=== PATIENT | male | born 1960 | race Caucasian/White ===

== ENCOUNTER → 2016-10-21 | Outpatient (CLI) | payer BC ==
[~2016-10-21] MED LIST: ANSHCS RE; ASPCH81X PO; ASPI81TA28 PO; BACL10TA PO; BUSP-8 PO; CHOL1000 PO; CHOL1CAP26 PO; CIPR-255 PO; COLC0.6T54 PO; CYAN1TAB3 PO; ENOX80IN SQ; ESCI10TA17 PO; GLUC10007 PO; GLUCTAB32 PO; HYDR-4383 PO; HYDR-5688 PO; IBUP-1449 PO; IBUP-1459 PO; LVNIS80 SQ; META1TAB PO; MULT-506 PO; NALT50TA5 PO; NF656 TOP; OXGN; PANT40TA PO; TRAZ50TA35 PO; TYL325X PO; VNTHFA/IN INH; WARF5TAB7 PO; WARF7.5T4 PO; XRL15 PO
== END | disposition home or self-care (01) ==
LOC: C.PATHSPEC 17:42
PROVIDERS: ATTEND Urology
DX: C61 Malignant neoplasm of prostate (principal)

== ENCOUNTER → 2016-12-01 | Outpatient (CLI) | payer BC ==
[~2016-12-01] VITALS: Ht 182.9 cm; Wt 90.3 kg
[~2016-12-01] MED LIST changes: +CEFAZOLIN 2000 MG/60 ML D5W IV SCH; +HEPARIN SOD 5000 UNIT/0.5 ML CARP SQ SCH; +LACTATED RINGER'S 1000ML 1,000 ML IV SCH; +SILD1TAB25 PO
[2016-12-01 08:20] VITALS: Ht 182.9 cm; Wt 90.3 kg
--- NOTE | 2016-12-01 08:59 | PAT Medication Instructions ---
Service Date Dec 01, 2016. Current Home Medication List Aspirin (Aspirin Ec), 81 MG PO QAM Baclofen (Lioresal), 10 MG PO HS PRN for RN Cyanocobalamin (B-12), 500 MCG PO QAM Wrhcmawlhrm-Xshjyirlmuu-Ft Cho (Glucosamine Chondroitin &), 1 TAB PO QAM Hydrocortisone Acetate (Anucort-Hc), 1 DOSE RE BID PRN for RN Lidocaine (Lidoderm Patch 5%), 1 DOSE TOP PRN Metaxalone (Metaxalone), 800 MG PO Q8H PRN for Pain Multivitamin (Multivitamin), 1 TAB PO QAM Oxygen (Oxygen), 2 LITERS NA HS Medication Instructions For Your Scheduled Surgery - Hold the following medications as of 12/02/16: Hxuhepnqndk-Gviyzoseuej-Jw Cho (Glucosamine Chondroitin &), 1 TAB PO QAM - Hold the following medications the morning of surgery: Cyanocobalamin (B-12), 500 MCG PO QAM Multivitamin (Multivitamin), 1 TAB PO QAM Lidocaine (Lidoderm Patch 5%), 1 DOSE TOP PRN Metaxalone (Metaxalone), 800 MG PO Q8H PRN for Pain Hydrocortisone Acetate (Anucort-Hc), 1 DOSE RE BID PRN - Take the following medications the morning of surgery with a sip of water OTHERWISE NOTHING TO EAT OR DRINK AFTER MIDNIGHT: Aspirin (Aspirin Ec), 81 MG PO QAM - Take the following medications as scheduled the night before surgery: Baclofen (Lioresal), 10 MG PO HS PRN Metaxalone (Metaxalone), 800 MG PO Q8H PRN for Pain Hydrocortisone Acetate (Anucort-Hc), 1 DOSE RE BID PRN If you have any questions please call us at [phone] or [phone] or [phone]
[2016-12-01 09:14] LABS: URINE APPEARANCE CLEAR (CLEAR); URINE BILIRUBIN NEG (NEG); URINE COLOR YELLOW; URINE EPITHELIAL CELL AUTO 0-5 /lpf (0-5); URINE NITRITE NEG (NEG); URINE PH 6.5 (4.5-7.5); URINE SPECIFIC GRAVITY 1.006 (1.000-1.030); UROBILINOGEN NEG (NEG)
[2016-12-01 09:15] LABS: MANUAL MICROSCOPIC REQUIRED? NO; REVIEW REQ? NO
[2016-12-01 09:26] LABS: BASO % 0.4 %; BASO ABS # 0.03 K/uL (0-0.2); COMPLETE YES; EOS % 4.3 %; HEMATOCRIT 41.4 % (42-52); IG% 0.3 %; LYMPH % 26.4 %; LYMPH ABS # 1.85 K/uL (1.2-3.4); MEAN CELL VOLUME 95.4 fL (80-100); MEAN CORPUSCULAR HEMOGLOBIN 32.7 pg (25-34); MEAN CORPUSCULAR HGB CONC 34.3 g/dl (32-36); MEAN PLATELET VOLUME 10.2 fL (7.4-10.4); MONO % 9.3 %; NEUT % 59.3 %; PLATELET COUNT 158 K/uL (130-400); RED BLOOD COUNT 4.34 M/uL (4.7-6.1); WHITE BLOOD COUNT 7.02 K/uL (4.8-10.8)
[2016-12-01 09:37] LABS: BUN/CREATININE RATIO 12.3 (10-20); CALCIUM 8.9 mg/dl (8.5-10.1); CREATININE 1.1 mg/dl (0.60-1.40); POTASSIUM 4.6 mmol/L (3.5-5.1)
== END | disposition home or self-care (01) ==
LOC: C.LAB 08:00 → EDSTATUS 12-14 09:00
PROVIDERS: ATTEND Urology
DX: Z01.810 Encounter for preprocedural cardiovascular examination (principal); Z01.812 Encounter for preprocedural laboratory examination

== ENCOUNTER → 2016-12-08 | Outpatient (CLI) | payer BC ==
[~2016-12-08] MED LIST changes: -ASPCH81X PO; -CEFAZOLIN 2000 MG/60 ML D5W IV SCH; -GLUC10007 PO; -HEPARIN SOD 5000 UNIT/0.5 ML CARP SQ SCH; -LACTATED RINGER'S 1000ML 1,000 ML IV SCH; -SILD1TAB25 PO
--- NOTE | 2016-12-08 08:25 | DIAGNOSTIC IMAGING REPORT ---
BILATERAL LOWER EXTREMITY VENOUS DOPPLER CLINICAL HISTORY: Acute left leg pain. COMPARISON STUDY: Bilateral lower extremity venous Doppler September 16, 2016. TECHNIQUE: Sonography of the deep venous system of the bilateral lower extremities was performed. Compression and augmentation were evaluated. FINDINGS: The right common femoral, superficial femoral and popliteal veins were compressible. Augmentation was normal. Flow was shown within the deep calf vessels of the right lower extremity. There was occlusive deep venous thrombus within the left popliteal, posterior tibial and peroneal veins. Vessels were expanded. This is new since exam of September 16, 2016. IMPRESSION: Interval development of occlusive deep venous thrombus within the left popliteal, posterior tibial and peroneal veins since exam of September 16, 2016. Electronically signed by: Jaguar Mckeon M.D. 12/08/2016 8:24 AM Dictated Date/Time: 12/08/2016 8:23 AM
== END | disposition home or self-care (01) ==
PROVIDERS: ATTEND Internal Medicine
DX: I82.432 Acute embolism and thrombosis of left popliteal vein (principal); I82.442 Acute embolism and thrombosis of left tibial vein

== ENCOUNTER 2016-12-25 13:24 | Inpatient (IN) | payer BC ==
[~2016-12-25] VITALS: Ht 182.9 cm; Wt 83.5 kg
[~2016-12-25 13:24] MED LIST changes: -BUSP-8 PO; -CHOL1000 PO; -CHOL1CAP26 PO; -CIPR-255 PO; -COLC0.6T54 PO; -ENOX80IN SQ; -ESCI10TA17 PO; -HYDR-4383 PO; -HYDR-5688 PO; -IBUP-1449 PO; -IBUP-1459 PO; -LVNIS80 SQ; -NALT50TA5 PO; -PANT40TA PO; -TRAZ50TA35 PO; -TYL325X PO; -VNTHFA/IN INH; -WARF5TAB7 PO; -WARF7.5T4 PO; -XRL15 PO
[2016-12-25] MEDS ORDERED: SODIUM CHLORIDE 0.9% 1000ML 250 ML IV STA (13:40)
[2016-12-25] MEDS ORDERED: SODIUM CHLORIDE 0.9% 1000ML 1,000 ML IV STA (13:40)
--- NOTE | 2016-12-25 13:42 | EMERGENCY ROOM VISIT NOTE ---
History Report prepared by Gurdeepibpetrona: Joanne Geronimo Under the Supervision of: Dr. Eran Thakkar M.D. First contact with patient: 13:32 Chief Complaint: CARDIAC ASSESSMENT Stated Complaint: CHEST PAIN,SOB History of Present Illness The patient is a 56 year old male who presents to the Emergency Room with complaints of persistent shortness of breath throughout the day today. He also complains of some left sided rib pain and a cough. Currently, he does not have chest pain with a deep breath but he did have some pain with breathing earlier today. His notes that the color in his face has been intermittently pale. He has been drinking plenty of fluids. The patient was diagnosed with a left leg DVT 2 weeks ago and has been on outpatient Xarelto for 2 weeks. He states that he was recently diagnosed with prostate cancer and is scheduled for removal of his prostate later this month. He is not on chemotherapy or radiation. The patient has a history of a right leg DVT and PE 2 years ago. The cause of the blood clots is unknown. There is no family history of blood clots and the patient does not have a known clotting disorder. Per patient's , the patient was in the service and has a previous right leg injury and they are unsure if his previous blood clots were related. Denies recent injuries or falls, fevers, abdominal pain, nausea, vomiting, diarrhea, or other complaints. He does not have a cardiac history. Source of History: patient, spouse/significant other Onset: today Position: other (global) Quality: other (shortness of breath) Timing: other (persistent) Associated Symptoms: + chest pain (left ribs), + cough, No abdominal pain, No diarrhea, No fevers, No nausea, No vomiting Review of Systems See HPI for pertinent positives & negatives. A total of 10 systems reviewed and were otherwise negative. Past Medical & Surgical Medical Problems: (1) Acute Venous Embolism & Thrombosis Deep Vessels Proximal Le (2) Idiopath Sleep Related Non-Obstruc Alveolar Hypoventilation (3) Pain In Limb (4) Prostate cancer Old medical records were reviewed. Nurse's notes were reviewed and I agree with. Family History Cancer BROTHER, Onset:50's - 60 (bladder cancer) MOTHER, Onset:60 years & older (uterine and stomach cancer) Diabetes mellitus SON (Type 1 DM) Social History Smoking Status: Never Smoker Alcohol Use: occasionally Drug Use: none Marital Status: Housing Status: lives with family Occupation Status: employed Current/Historical Medications Scheduled Cyanocobalamin (B-12), 500 MCG PO QAM Icrtlyhbhqq-Wssvhhnfxua-Et Cho (Glucosamine Chondroitin &), 1 TAB PO QAM Lidocaine (Lidoderm Patch 5%), 1 DOSE TOP PRN Multivitamin (Multivitamin), 1 TAB PO QAM Oxygen (Oxygen), 2 LITERS NA HS Rivaroxaban (Xarelto), 15 MG PO BID Scheduled PRN Baclofen (Lioresal), 10 MG PO HS PRN for RN Hydrocortisone Acetate (Anucort-Hc), 1 DOSE RE BID PRN for RN Metaxalone (Metaxalone), 800 MG PO Q8H PRN for Pain Allergies Coded Allergies: No Known Allergies (Unverified , 12/25/16) Physical Exam Vital Signs Date Time Temp Pulse Resp B/P Pulse Ox O2 Delivery O2 Flow Rate FiO2 12/25/16 15:18 78 16 134/83 95 Room Air 12/25/16 14:16 86 17 133/86 93 Room Air 12/25/16 13:47 77 12/25/16 13:47 97 Room Air 12/25/16 13:27 36.6 83 18 144/98 97 Room Air Physical Exam General: Non-ill appearing middle aged male. Well developed well nourished in no acute distress, breathing comfortably on room air. Normal speech HEENT: Normal cephalic atraumatic. Pupils are equal round and reactive to light. Extraocular movements are intact. Oropharynx is pink with moist mucous membranes. No swelling of the mouth lips or tongue. Neck: Supple with a midline trachea. No meningeal signs or stiffness, no JVD or bruits. No Stridor. Chest: Clear to auscultation bilaterally. No wheezes or rhonchi. No increased work of breathing. Heart: regular rate and rhythm. Abdomen: Soft nontender, nondistended without rebound guarding or rigidity. Extremities: No cyanosis clubbing or edema. No calf tenderness or assymetry Spine/Back. Non tender to palpation. No CVA tenderness Skin: Good turgor without rashes. Neurologic exam: Cranial nerves two through 12 are intact. Motor and sensation are intact and symmetrical throughout. Medical Decision & Procedures ER Provider Diagnostic Interpretation: Radiology results as stated below per my review and radiologist interpretation: CT ANGIOGRAM OF THE CHEST CLINICAL HISTORY: Atypical chest pain COMPARISON STUDY: 05/03/2016 TECHNIQUE: Following the IV administration of 99 mL of Optiray-320, CT angiogram of the thorax was performed from the thoracic inlet to the lung bases utilizing the pulmonary embolus protocol. Images are reviewed in the axial, sagittal, and coronal planes. IV contrast was administered without complication. MIP imaging was performed. CT DOSE: 394.09 mGy.cm FINDINGS: No pathologically enlarged axillary mediastinal or hilar lymph nodes were visualized. There was no evidence of thoracic aortic dilatation. There is a small linear filling defect within the origin of the right upper lobe pulmonary artery. The findings are consistent with a small pulmonary embolism. No pleural effusions are visualized. There is no focal pulmonary consolidation. There is mild bibasilar atelectasis. IMPRESSION: 1. Small filling defect within the origin of the right upper lobe pulmonary artery, consistent with a small pulmonary embolus 2. No evidence of focal pulmonary consolidation 3. No evidence of pathologic adenopathy Electronically signed by: Chase Soliman M.D. 12/25/2016 2:15 PM Dictated Date/Time: 12/25/2016 2:[address] ANGIOGRAM OF THE CHEST CLINICAL HISTORY: Atypical chest pain COMPARISON STUDY: 05/03/2016 TECHNIQUE: Following the IV administration of 99 mL of Optiray-320, CT angiogram of the thorax was performed from the thoracic inlet to the lung bases utilizing the pulmonary embolus protocol. Images are reviewed in the axial, sagittal, and coronal planes. IV contrast was administered without complication. MIP imaging was performed. CT DOSE: 394.09 mGy.cm FINDINGS: No pathologically enlarged axillary mediastinal or hilar lymph nodes were visualized. There was no evidence of thoracic aortic dilatation. There is a small linear filling defect within the origin of the right upper lobe pulmonary artery. The findings are consistent with a small pulmonary embolism. No pleural effusions are visualized. There is no focal pulmonary consolidation. There is mild bibasilar atelectasis. IMPRESSION: 1. Small filling defect within the origin of the right upper lobe pulmonary artery, consistent with a small pulmonary embolus 2. No evidence of focal pulmonary consolidation 3. No evidence of pathologic adenopathy Electronically signed by: Chase Soliman M.D. 12/25/2016 2:15 PM Dictated Date/Time: 12/25/2016 2:07 PM ULTRASOUND VENOUS DOPPLER LWR EXT BILA CLINICAL HISTORY: Leg pain HISTORY OF DVT COMPARISON STUDY: December 08, 2016 FINDINGS: On the right, no DVT was identified. The common femoral superficial femoral and popliteal veins were patent. The proximal trifurcation veins are patent. On the left, thrombus is again identified within the left popliteal vein as well within one peroneal vein, and one posterior tibial vein. The left popliteal thrombus appears slightly improved when compared the prior study. IMPRESSION: 1. No evidence of right lower extremity DVT 2. Persistent thrombus within the left popliteal vein, posterior tibial vein, and peroneal vein. There has been minor improvement when compared the prior study. Electronically signed by: Chase Soliman M.D. 12/25/2016 5:25 PM Dictated Date/Time: 12/25/2016 5:23 PM Laboratory Results 12/25/16 13:40 Red Blood Count 4.49, Mean Corpuscular Volume 96.7, Mean Corpuscular Hemoglobin 33.2, Mean Corpuscular Hemoglobin Concent 34.3, Mean Platelet Volume 10.8, Neutrophils (%) (Auto) 63.1, Lymphocytes (%) (Auto) 23.0, Monocytes (%) (Auto) 12.0, Eosinophils (%) (Auto) 1.3, Basophils (%) (Auto) 0.4, Neutrophils # (Auto ) 6.44, Lymphocytes # (Auto) 2.35, Monocytes # (Auto) 1.22, Eosinophils # (Auto ) 0.13, Basophils # (Auto) 0.04 12/25/16 13:40 Test 12/25/16 13:40 12/25/16 13:52 White Blood Count 10.20 K/uL (4.8-10.8) Red Blood Count 4.49 M/uL (4.7-6.1) Hemoglobin 14.9 g/dL (14.0-18.0) Hematocrit 43.4 % (42-52) Mean Corpuscular Volume 96.7 fL (80-100) Mean Corpuscular Hemoglobin 33.2 pg (25-34) Mean Corpuscular Hemoglobin Concent 34.3 g/dl (32-36) Platelet Count 192 K/uL (130-400) Mean Platelet Volume 10.8 fL (7.4-10.4) Neutrophils (%) (Auto) 63.1 % Lymphocytes (%) (Auto) 23.0 % Monocytes (%) (Auto) 12.0 % Eosinophils (%) (Auto) 1.3 % Basophils (%) (Auto) 0.4 % Neutrophils # (Auto) 6.44 K/uL (1.4-6.5) Lymphocytes # (Auto) 2.35 K/uL (1.2-3.4) Monocytes # (Auto) 1.22 K/uL (0.11-0.59) Eosinophils # (Auto) 0.13 K/uL (0-0.5) Basophils # (Auto) 0.04 K/uL (0-0.2) RDW Standard Deviation 45.3 fL (36.4-46.3) RDW Coefficient of Variation 12.8 % (11.5-14.5) Immature Granulocyte % (Auto) 0.2 % Immature Granulocyte # (Auto) 0.02 K/uL (0.00-0.02) Prothrombin Time 12.0 SECONDS (9.0-12.0) Prothromb Time International Ratio 1.1 (0.9-1.1) Activated Partial Thromboplast Time 27.8 SECONDS (21.0-31.0) Partial Thromboplastin Ratio 1.1 Anion Gap 9.0 mmol/L (3-11) Est Creatinine Clear Calc Drug Dose 70.5 ml/min Estimated GFR () 71.2 Estimated GFR (Non- 61.4 BUN/Creatinine Ratio 17.9 (10-20) Calcium Level 8.7 mg/dl (8.5-10.1) Total Bilirubin 0.4 mg/dl (0.2-1) Direct Bilirubin < 0.1 mg/dl (0-0.2) Aspartate Amino Transf (AST/SGOT) 19 U/L (15-37) Alanine Aminotransferase (ALT/SGPT) 37 U/L (12-78) Alkaline Phosphatase 61 U/L (45-117) Total Creatine Kinase 94 U/L (39-308) Creatine Kinase MB < 0.5 ng/ml (0.5-3.6) Creatine Kinase MB Ratio (0-3.0) Total Protein 7.5 gm/dl (6.4-8.2) Albumin 3.9 gm/dl (3.4-5.0) Lipase 240 U/L (73-393) Bedside Troponin I 0.000 ng/ml (0-0.045) Laboratory studies as stated above per my review. Medications Administered Medications (Trade) Dose Ordered Sig/Eloy Route Start Time Stop Time Status Last Admin Dose Admin Sodium Chloride 250 ml @ 999 mls/hr Q16M STAT IV 12/25/16 13:40 12/25/16 13:55 DC 12/25/16 14:20 999 MLS/HR Sodium Chloride (Nss 1000ml) 1,000 ml @ 100 mls/hr Q10H STAT IV 12/25/16 13:40 12/25/16 17:42 DC 12/25/16 14:23 100 MLS/HR Heparin Sodium/ Dextrose (Heparin 25,000 Unit/500ml D5W) 25,000 unit STK-MED ONCE .ROUTE 12/25/16 15:10 12/25/16 15:13 DC 12/25/16 15:16 25,000 UNIT ECG Indication: SOB/dyspnea Rate (beats per minute): 76 Rhythm: normal sinus Findings: Q waves (anterior and lateral), other (no acute ST abnormality) Comparison ECG Date: 12/01/16 Change: no significant change ED Course 1333: Past medical records reviewed. The patient was evaluated in room C3, and a complete history and physical examination were performed. 1340: Ordered NSS 1000 ml @ 100 mls/hr IV NSS 250 ml @ 999 mls/hr IV. 1408: The patient was in CT scan. I spoke with his . 1445: I spoke with the pharmacist who recommended that I speak with a shotblast equipment operator but felt that the patient would need Heparin. 1446: I discussed the case with Dr. Bustillos - [facility] [place] Hospitalist. He recommended that I speak with a shotblast equipment operator and order ultrasounds. 1448: I discussed the case with Dr. Martínez - Hematology. He said to put the patient on heparin without a bolus. 1450: Ordered Heparin Sodium/Dextrose 1 ea. 1457: I spoke with Dr. Bustillos. The patient will be evaluated for further management. Medical Decision Differential diagnosis includes PE, pneumonia, CHF, anxiety, arrhythmia, acute coronary syndrome, electrolyte or metabolic abnormality. This patient comes in as described above. He was placed in room C3. He is here for treatment and evaluation of shortness of breath and some mild chest pain on his left side. He feels better now appears concern because he is being treated with Xarelto for the last 2 weeks for DVT his left lower extremity. He' s had no syncope or palpitations. IV access established, EKG was obtained as well as multiple blood testing. a chest CT does show a small PE in the right upper lobe. He has nothing to suggest acute coronary syndrome or arrhythmia. EKG does not appear to be ischemic I did get a second EKG after had a brief episode of chest pain here and has no change compared to the first. she had been given morphine as well. I did discuss this with the hospitalist. They're going to admit him. I did discuss this with Dr. Martino, the shotblast equipment operator oncologist, and he did recommend putting him on IV heparin without a bolus, he was given this in the ER. We also repeated ultrasounds of his legs to see if he is any progression of his clot. The patient will be admitted for IV heparin and further treatment and evaluation. Consults Time Called: 1440 Consulting Physician: Dr. Tressa DELEON Hospitalist Returned Call: 1442 I discussed the case with him. He recommended that I speak with a shotblast equipment operator and order ultrasounds. Additional Consults: Time Called: 1446 Consulted Physician: Dr. Martínez - Hematology Returned Call: 1447 Additional Comments: I discussed the case with him. He said to put the patient on heparin without a bolus. Time Called: 1458 Consulted Physician: Dr. Tressa DELEON Hospitalist Returned Call: 1452 Additional Comments: The patient will be evaluated for further management. Impression Primary Impression: PE (pulmonary embolism) Additional Impression: Deep vein thrombosis Scribe Attestation The scribe's documentation has been prepared under my direction and personally reviewed by me in its entirety. I confirm that the note above accurately reflects all work, treatment, procedures, and medical decision making performed by me. Departure Information Dispostion Being Evaluated By Hospitalist Referrals Tripp Carey M.D. (PCP) Patient Instructions My [facility] Health Problem Qualifiers
[2016-12-25] MEDS ORDERED: OPTIRAY 320 IV PRN (13:45)
[2016-12-25 13:52] LABS: BASO % 0.4 %; BASO ABS # 0.04 K/uL (0-0.2); COMPLETE YES; EOS % 1.3 %; HEMATOCRIT 43.4 % (42-52); IG% 0.2 %; LYMPH ABS # 2.35 K/uL (1.2-3.4); MEAN CELL VOLUME 96.7 fL (80-100); MEAN CORPUSCULAR HEMOGLOBIN 33.2 pg (25-34); MEAN CORPUSCULAR HGB CONC 34.3 g/dl (32-36); MEAN PLATELET VOLUME 10.8 fL (7.4-10.4); NEUT % 63.1 %; PLATELET COUNT 192 K/uL (130-400); RED BLOOD COUNT 4.49 M/uL (4.7-6.1)
[2016-12-25 14:04] LABS: INR 1.1 (0.9-1.1); PARTIAL THROMBOPLASTIN RATIO 1.1
[2016-12-25] MEDS ORDERED: XRL15 PO (14:12)
--- NOTE | 2016-12-25 14:16 | DIAGNOSTIC IMAGING REPORT ---
CT ANGIOGRAM OF THE CHEST CLINICAL HISTORY: Atypical chest pain COMPARISON STUDY: 05/03/2016 TECHNIQUE: Following the IV administration of 99 mL of Optiray-320, CT angiogram of the thorax was performed from the thoracic inlet to the lung bases utilizing the pulmonary embolus protocol. Images are reviewed in the axial, sagittal, and coronal planes. IV contrast was administered without complication. MIP imaging was performed. CT DOSE: 394.09 mGy.cm FINDINGS: No pathologically enlarged axillary mediastinal or hilar lymph nodes were visualized. There was no evidence of thoracic aortic dilatation. There is a small linear filling defect within the origin of the right upper lobe pulmonary artery. The findings are consistent with a small pulmonary embolism. No pleural effusions are visualized. There is no focal pulmonary consolidation. There is mild bibasilar atelectasis. IMPRESSION: 1. Small filling defect within the origin of the right upper lobe pulmonary artery, consistent with a small pulmonary embolus 2. No evidence of focal pulmonary consolidation 3. No evidence of pathologic adenopathy Electronically signed by: Chase Soliman M.D. 12/25/2016 2:15 PM Dictated Date/Time: 12/25/2016 2:07 PM
[2016-12-25 14:18] LABS: ALT/SGPT 37 U/L (12-78); AST/SGOT 19 U/L (15-37); BLOOD UREA NITROGEN 23 mg/dl (7-18); BUN/CREATININE RATIO 17.9 (10-20); CALCIUM 8.7 mg/dl (8.5-10.1); CARBON DIOXIDE 27 mmol/L (21-32); CHLORIDE 105 mmol/L (98-107); GLUCOSE 84 mg/dl (70-99); POTASSIUM 3.9 mmol/L (3.5-5.1); SODIUM 141 mmol/L (136-145)
[2016-12-25 14:23] LABS: ALKALINE PHOSPHATASE 61 U/L (45-117)
[2016-12-25] MEDS ORDERED: HEPARIN 25000 UNIT/500 ML D5W ONE (15:10)
[2016-12-25] MEDS ORDERED: ALUMINUM/MAGNESIUM/SIMETH (MAALOX MAX) 30 ML UDC PO PRN (15:30)
[2016-12-25] MEDS ORDERED: ONDANSETRON INJ 2 MG/ML 2 ML VIAL IV PRN (15:30)
[2016-12-25] MEDS ORDERED: MAGNESIUM HYDROXIDE SUSP 30 ML UDC PO PRN (15:30)
[2016-12-25] MEDS ORDERED: ACETAMINOPHEN 325 MG TAB PO PRN (15:30)
[2016-12-25] MEDS ORDERED: POLYETHYLENE (MIRALAX) 17 GM PACK PO PRN (15:30)
[2016-12-25] MEDS ORDERED: BACLOFEN 10 MG TAB PO PRN (15:30)
--- NOTE | 2016-12-25 15:37 | History and Physical ---
History & Physical Date & Time of Service: Dec 25, 2016 at 15:24 Chief Complaint: Chest Pain,Sob Primary Care Physician: Tripp Carey M.D. History of Present Illness Source: patient 56 y/o M w/Hx prostata CA, recent LLE DVT currently on Xarelto. Pt developed acute pleuritic CP and SOB and presented to the ER. A CTA revealed a small upper lobe PE. The ER attending had discussed this with hematology who have instructed to place the pt on a heparin infusion due to possible Apixaban failure. The pt had a DVT and PE 2 years prior and was on Coumadin until . He presented to the ER with hematuria and BRBPR 07/02 and was diagnosed with hemorrhoids and eventually with Prostate CA. The disease is in situ and he is due for a prostatectomy which was held up by a DVT diagnosis 2 weeks prior. Past Medical/Surgical History Medical Problems: (1) Acute Venous Embolism & Thrombosis Deep Vessels Proximal Le Status: Resolved (2) Idiopath Sleep Related Non-Obstruc Alveolar Hypoventilation Status: Chronic (3) Pain In Limb Status: Resolved (4) Prostate cancer Status: Chronic Family History Cancer BROTHER, Onset:50's - 60 (bladder cancer) MOTHER, Onset:60 years & older (uterine and stomach cancer) Diabetes mellitus SON (Type 1 DM) Social History Smoking Status: Never Smoker Drug Use: none Marital Status: Housing status: lives with family Occupational Status: employed Multi-Drug Resistant Organisms History of MDRO: No Allergies Coded Allergies: No Known Allergies (Unverified , 12/25/16) Home Medications Scheduled Cyanocobalamin (B-12), 500 MCG PO QAM Hfctluteged-Tukeiboiyeh-Rh Cho (Glucosamine Chondroitin &), 1 TAB PO QAM Lidocaine (Lidoderm Patch 5%), 1 DOSE TOP PRN Multivitamin (Multivitamin), 1 TAB PO QAM Oxygen (Oxygen), 2 LITERS NA HS Rivaroxaban (Xarelto), 15 MG PO BID Scheduled PRN Baclofen (Lioresal), 10 MG PO HS PRN for RN Hydrocortisone Acetate (Anucort-Hc), 1 DOSE RE BID PRN for RN Metaxalone (Metaxalone), 800 MG PO Q8H PRN for Pain Review of Systems Constitutional: No chills, No fever, No sweats Eyes: No eye pain, No worsening of vision ENT: No hearing loss, No nasal symptoms, No unusual epistaxis Respiratory: + shortness of breath, No cough, No sputum, No wheezing Cardiovascular: + chest pain (PLeuritic), No PND, No orthopnea Abdomen: No nausea, No pain, No vomiting Musculoskeletal: + muscle pain (Chronic LBP), No joint pain Genitourinary - Male: No dysuria, No hematuria, No urinary frequency, No urinary urgency Neurologic: No memory loss, No paralysis, No weakness Psychiatric: No depression symptoms Endocrine: No fatigue Integumentary: No rash Allergic / Immunologic: No environmental allergies Physical Exam Vital Signs Date Time Temp Pulse Resp B/P Pulse Ox O2 Delivery O2 Flow Rate FiO2 12/25/16 15:18 78 16 134/83 95 Room Air 12/25/16 14:16 86 17 133/86 93 Room Air 12/25/16 13:47 77 12/25/16 13:47 97 Room Air 12/25/16 13:27 36.6 83 18 144/98 97 Room Air General Appearance: WD/WN, no apparent distress Head: normocephalic, atraumatic Eyes: normal inspection, PERRL, EOMI ENT: normal ENT inspection, hearing grossly normal, TMs normal, pharynx normal Neck: supple, no JVD Respiratory/Chest: chest non-tender, lungs clear, normal breath sounds, no respiratory distress, no accessory muscle use Cardiovascular: regular rate, rhythm, no edema, no gallop Abdomen/GI: normal bowel sounds, non tender, soft, no organomegaly, no pulsatile mass, normal rectal exam, occult blood negative Back: normal inspection, no CVA tenderness Extremities/Musculoskelatal: normal inspection, no calf tenderness 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, no motor/sensory deficits, alert, normal mood/affect, normal reflexes, oriented x 3 Skin: normal color, warm/dry, no rash Diagnostics Laboratory Results Results Past 24 Hours Test 12/25/16 13:40 12/25/16 13:52 Range/Units White Blood Count 10.20 4.8-10.8 K/uL Red Blood Count 4.49 4.7-6.1 M/uL Hemoglobin 14.9 14.0-18.0 g/dL Hematocrit 43.4 42-52 % Mean Corpuscular Volume 96.7 80-100 fL Mean Corpuscular Hemoglobin 33.2 25-34 pg Mean Corpuscular Hemoglobin Concent 34.3 32-36 g/dl Platelet Count 192 130-400 K/uL Mean Platelet Volume 10.8 7.4-10.4 fL Neutrophils (%) (Auto) 63.1 % Lymphocytes (%) (Auto) 23.0 % Monocytes (%) (Auto) 12.0 % Eosinophils (%) (Auto) 1.3 % Basophils (%) (Auto) 0.4 % Neutrophils # (Auto) 6.44 1.4-6.5 K/uL Lymphocytes # (Auto) 2.35 1.2-3.4 K/uL Monocytes # (Auto) 1.22 0.11-0.59 K/uL Eosinophils # (Auto) 0.13 0-0.5 K/uL Basophils # (Auto) 0.04 0-0.2 K/uL RDW Standard Deviation 45.3 36.4-46.3 fL RDW Coefficient of Variation 12.8 11.5-14.5 % Immature Granulocyte % (Auto) 0.2 % Immature Granulocyte # (Auto) 0.02 0.00-0.02 K/uL Prothrombin Time 12.0 9.0-12.0 SECONDS Prothromb Time International Ratio 1.1 0.9-1.1 Activated Partial Thromboplast Time 27.8 21.0-31.0 SECONDS Partial Thromboplastin Ratio 1.1 Sodium Level 141 136-145 mmol/L Potassium Level 3.9 3.5-5.1 mmol/L Chloride Level 105 98-107 mmol/L Carbon Dioxide Level 27 21-32 mmol/L Anion Gap 9.0 3-11 mmol/L Blood Urea Nitrogen 23 7-18 mg/dl Creatinine 1.30 0.60-1.40 mg/dl Est Creatinine Clear Calc Drug Dose 70.5 ml/min Estimated GFR () 71.2 Estimated GFR (Non- 61.4 BUN/Creatinine Ratio 17.9 10-20 Random Glucose 84 70-99 mg/dl Calcium Level 8.7 8.5-10.1 mg/dl Total Bilirubin 0.4 0.2-1 mg/dl Direct Bilirubin < 0.1 0-0.2 mg/dl Aspartate Amino Transf (AST/SGOT) 19 15-37 U/L Alanine Aminotransferase (ALT/SGPT) 37 12-78 U/L Alkaline Phosphatase 61 45-117 U/L Total Creatine Kinase 94 39-308 U/L Creatine Kinase MB < 0.5 0.5-3.6 ng/ml Creatine Kinase MB Ratio 0-3.0 Total Protein 7.5 6.4-8.2 gm/dl Albumin 3.9 3.4-5.0 gm/dl Lipase 240 73-393 U/L Bedside Troponin I 0.000 0-0.045 ng/ml Diagnostic Radiology CTA 1. Small filling defect within the origin of the right upper lobe pulmonary artery, consistent with a small pulmonary embolus 2. No evidence of focal pulmonary consolidation 3. No evidence of pathologic adenopathy Impression Assessment and Plan 56 y/o M w/Hx recent DVT currently on Xarelto. Pt developed acute pleuritic CP and SOB and presented to the ER. A CTA revealed a small upper lobe PE. The ER attending had discussed this with hematology who have instructed to place the pt on a heparin infusion due to possible Xarelto failure. 1) PE - known DVT 2 weeks prior - this may constitute Xarelto failure however we will obtain a LE US to determine if DVT is resolving as the PE is small and may be residual. 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 O2 protocol - analgesia provided. Instructed on Heparin infusion pending consultation. 2) Prostate CA - Follows with Dr. Martínez and Dr. Leonard Full code - full dose Heparin Total time for this admit including review of labs, meds, imaging - discussion with pt and ER attending 32 min Level of Care Telemetry Resuscitation Status FULL RESUSCITATION VTE Prophylaxis VTE Risk Assessment Done? Y/N: Yes Risk Level: High Given or contraindicated: Other Anticoagulation
--- NOTE | 2016-12-25 17:27 | DIAGNOSTIC IMAGING REPORT ---
ULTRASOUND VENOUS DOPPLER LWR EXT BILA CLINICAL HISTORY: Leg pain HISTORY OF DVT COMPARISON STUDY: December 08, 2016 FINDINGS: On the right, no DVT was identified. The common femoral superficial femoral and popliteal veins were patent. The proximal trifurcation veins are patent. On the left, thrombus is again identified within the left popliteal vein as well within one peroneal vein, and one posterior tibial vein. The left popliteal thrombus appears slightly improved when compared the prior study. IMPRESSION: 1. No evidence of right lower extremity DVT 2. Persistent thrombus within the left popliteal vein, posterior tibial vein, and peroneal vein. There has been minor improvement when compared the prior study. Electronically signed by: Chase Soliman M.D. 12/25/2016 5:25 PM Dictated Date/Time: 12/25/2016 5:23 PM
[2016-12-25] MEDS ORDERED: D5NSS + 20MEQ KCL 1,000 ML IV SCH (17:42)
[2016-12-25] MEDS ORDERED: HEPARIN 25,000 UNIT/500ML D5W 500 ML IV PRN (18:00)
[2016-12-25] MEDS: MoRPHine SULFATE 2 MG/ML CARP IV PRN (19:24)
[2016-12-25 20:01] VITALS: BP 141/92; PULSE 73; TEMP 36.8; O2SAT 94
[2016-12-25 20:44] VITALS: O2SAT 94; Ht 182.9 cm; Wt 83.5 kg
[2016-12-25 21:57] LABS: PARTIAL THROMBOPLASTIN RATIO 1.7
[2016-12-25] MEDS ORDERED: HEPARIN SOD 5000 UNIT/0.5 ML CARP SQ SCH (22:00)
[2016-12-25] MEDS ORDERED: HEPARIN IV BOLUS 3,000 UNIT in SYRINGE 0 ML IV ONE (22:30)
[2016-12-25 23:20] VITALS: BP 120/82; PULSE 61; TEMP 36.8; O2SAT 96
[2016-12-26] VITALS (8 sets, daily range): BP systolic 117–128; BP diastolic 73–88; PULSE 64–71; TEMP 36.5–37; O2SAT 95–98
[2016-12-26] MEDS: MoRPHine SULFATE 2 MG/ML CARP IV PRN ×4 (03:52→20:48)
[2016-12-26 05:56] LABS: HEMATOCRIT 40.3 % (42-52); MEAN CELL VOLUME 95.7 fL (80-100); MEAN CORPUSCULAR HGB CONC 34.5 g/dl (32-36); MEAN PLATELET VOLUME 10.7 fL (7.4-10.4); PLATELET COUNT 158 K/uL (130-400); RED BLOOD COUNT 4.21 M/uL (4.7-6.1); WHITE BLOOD COUNT 9.68 K/uL (4.8-10.8)
[2016-12-26 06:56] LABS: PARTIAL THROMBOPLASTIN RATIO 2.8
[2016-12-26] MEDS: CYANOCOBALAMIN 500 MCG TAB (VIT B-12) PO SCH (08:33)
[2016-12-26 13:21] LABS: PARTIAL THROMBOPLASTIN RATIO 2.1
--- NOTE | 2016-12-26 14:37 | Progress Note ---
Subjective Date of Service: Dec 26, 2016. Subjective Pt evaluation today including: conversation w/ patient, physical exam, chart review, lab review, review of studies, review of inpatient medication list Resting comfortably in bed No shortness of breath or chest pain No fever, or chills No further concerns Problem List Medical Problems: (1) Anemia Status: Acute (2) Anticoagulated on Coumadin Status: Acute (3) Blood per rectum Status: Acute (4) Chest wall pain Status: Acute (5) Deep vein thrombosis Status: Acute (6) Hematuria Status: Acute (7) Hematuria Status: Acute (8) Intractable back pain Status: Acute (9) Low back pain Status: Acute (10) Lower back pain Status: Acute (11) PE (pulmonary embolism) Status: Acute (12) Pleuritic chest pain Status: Acute (13) Rectal bleeding Status: Acute (14) Shortness of breath Status: Acute Review of Systems Constitutional: No chills, No fever Respiratory: No cough, No dyspnea on exertion, No shortness of breath, No sputum, No wheezing Cardiac: No chest pain, No orthopnea Abdomen: No constipation, No diarrhea, No nausea, No pain, No vomiting Musculoskeletal: No joint pain, No muscle pain Male : No dysuria, No urinary frequency Objective Vital Signs Date Time Temp Pulse Resp B/P Pulse Ox O2 Delivery O2 Flow Rate FiO2 12/26/16 12:00 98 Room Air 12/26/16 11:39 37.0 66 18 126/75 97 Room Air 12/26/16 09:37 Room Air 12/26/16 08:00 96 Room Air 12/26/16 07:47 36.5 69 18 117/73 96 Room Air 12/26/16 04:30 36.9 64 16 126/79 96 Nasal Cannula 1.0 12/26/16 03:39 Nasal Cannula 2.0 12/25/16 23:49 Room Air 12/25/16 23:20 36.8 61 16 120/82 96 Room Air 12/25/16 20:44 94 Room Air 12/25/16 20:01 36.8 73 18 141/92 94 Room Air 12/25/16 16:57 74 20 146/98 95 12/25/16 16:27 74 20 146/98 95 12/25/16 15:18 78 16 134/83 95 Room Air Physical Exam General Appearance: WD/WN, no apparent distress Neck: supple, no adenopathy, thyroid normal Respiratory/Chest: chest non-tender, lungs clear Cardiovascular: no edema, no JVD Abdomen: non tender, soft Neurologic/Psychiatric: alert, oriented x 3 Laboratory Results Last 24 Hours Test 12/25/16 21:41 12/26/16 05:36 12/26/16 13:00 Activated Partial Thromboplast Time 43.4 SECONDS 74.1 SECONDS 53.7 SECONDS Partial Thromboplastin Ratio 1.7 2.8 2.1 White Blood Count 9.68 K/uL Red Blood Count 4.21 M/uL Hemoglobin 13.9 g/dL Hematocrit 40.3 % Mean Corpuscular Volume 95.7 fL Mean Corpuscular Hemoglobin 33.0 pg Mean Corpuscular Hemoglobin Concent 34.5 g/dl RDW Standard Deviation 44.6 fL RDW Coefficient of Variation 12.8 % Platelet Count 158 K/uL Mean Platelet Volume 10.7 fL Assessment and Plan 56 y/o M w/Hx recent DVT currently on Xarelto. Pt developed acute pleuritic CP and SOB and presented to the ER. A CTA revealed a small upper lobe PE. The ER attending had discussed this with hematology who have instructed to place the pt on a heparin infusion due to possible Xarelto failure. 1) PE - known DVT 2 weeks prior - this may constitute Xarelto failure. LE US neg for any DVT. CTA PE is small and may be residual. 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 O2 protocol - analgesia provided. Instructed on Heparin infusion pending consultation. 2) Prostate CA - Follows with Dr. Martínez and Dr. Leonard Full code - full dose Heparin
[2016-12-26] MEDS: ENOXAPARIN 80 MG/0.8 ML SYR SQ SCH (15:15)
--- NOTE | 2016-12-26 18:19 | ONCOLOGY CONSULTATION ---
DATE OF CONSULTATION: 12/26/2016 REASON FOR CONSULTATION: Pulmonary embolism. HISTORY OF PRESENT ILLNESS: Joe is a pleasant 56-year-old gentleman well known to [facility] recently diagnosed at the [facility] with acute onset chest pain and subsequent pulmonary embolism. Joe states that he was in his normal state of reasonably good health when he woke up Tuesday morning and was doing some basic chores around the house when he developed a sharp, stabbing pain in the midsternal region. He sat down and rested briefly. His commented on his pale appearance, but he said he felt okay. Shortly thereafter, the pain returned and he requested his transport him to the Emergency Room. Joe was recently diagnosed with left lower extremity deep vein thrombosis, had been on b.i.d. Xarelto and was approximately 1 week away from converting to a daily dosing. Joe was first introduced to the [facility] at kind of request of his primary care physician to evaluate him for a possible hypercoagulable state. At that time, he imparted history of DVT and pulmonary embolism diagnosed back in 2013. According to Joe, he had not experienced any medical issues or immobility, thus most likely developed a spontaneous thrombotic event. He was anticoagulated for a period of 6 months with Coumadin. Two months post-discontinuance, he developed superficial thrombophlebitis of the right lower extremity. His prior DVT had involved the same extremity. He had continued on Coumadin alternating 5 and 10 mg p.o. every day. He had followed with the anticoagulation clinic at the [facility] and more recently with Dr. Roberts. He had developed genitourinary symptoms, specifically hematuria with right flank pain and underwent extensive workup for renal lithiasis and supposedly all were negative. He was recently diagnosed with prostatitis and is now suspected to suffer from prostate cancer and awaits a formal biopsy. I was contacted by the Emergency Room physician yesterday. I advised admission and incorporation of unfractionated heparin. I am here today to make formal recommendations for long-term anticoagulation. PAST MEDICAL HISTORY: Again, significant for multiple DVT/PE superficial thrombophlebitis, prostatitis versus prostate cancer. PAST SURGICAL HISTORY: None. SOCIAL HISTORY: He is retired , works in the [employer] business. He is a nonsmoker; positive for alcohol, particularly beer. FAMILY HISTORY: Negative for thrombophilia. MEDICATIONS: Xarelto 15 mg p.o. b.i.d., metoprolol XL 800 mg 1 tablet q. 8 hours, glucosamine chondroitin 500/400 mg orally every day, cyanocobalamin oral 500 mcg 1 tablet p.o. every day. ALLERGIES: No known drug allergies. REVIEW OF SYSTEMS: As per HPI, most notably for a sharp substernal chest pain. Positive for shortness of breath and dyspnea on exertion. No fevers, chills or night sweats. He is not anorexic or losing weight. SKIN: No rashes or lesions. No history of dermatoses. HEENT: Negative for headaches, lightheadedness or dizziness. No dysphagia or sore throat. No sinus symptoms reported. LYMPHATIC: No history of lymphoproliferative disorder or palpable lymphadenopathy by history. CARDIAC: He has no known cardiac history. No current angina or palpitations. PULMONARY: As per HPI. Negative for history of COPD. GASTROINTESTINAL: Negative for abdominal pain, nausea, vomiting, diarrhea or constipation, hematochezia or melena stools. GENITOURINARY: No hematuria, dysuria, urinary incontinence. Currently, under urology evaluation for prostatitis, prostate cancer, biopsy pending. MUSCULOSKELETAL: No arthralgias or myalgias. No muscle weakness. NEUROLOGIC: Negative for seizure, stroke, or migraine headache. ENDOCRINE: Negative for diabetes or thyroid disease. HEMATOLOGIC: Negative for anemia or bleeding diathesis. PHYSICAL EXAMINATION: GENERAL: Well developed and nourished 56-year-old gentleman in no acute distress. VITAL SIGNS: Temperature 37, pulse 66, respirations 18, blood pressure 126/75. SKIN: Warm, dry, noncyanotic without petechia, rash or ecchymosis. HEAD: Atraumatic, normocephalic. EYES: PERRLA, EOMI. Sclerae are nonicteric. No conjunctival injection. Nares are patent without rhinorrhea or discharge. Throat is clear. Tongue is midline. Mucous membranes are moist. NECK: Supple without JVD or thyromegaly. LYMPH: No cervical, supraclavicular, axillary or inguinal palpable nodes. HEART: Regular rate and rhythm. No clicks, rubs, murmurs or gallops. LUNGS: Clear to auscultation bilaterally. ABDOMEN: Soft, nontender, nondistended, without palpable hepatosplenomegaly. EXTREMITIES: No calf tenderness or swelling. No clubbing, cyanosis or edema. NEUROLOGIC: Awake, alert and oriented x3. Cranial nerves II-XII are intact. No gross motor or sensory deficits are noted. LABORATORY DATA: Review of hypercoag panel performed 07/22/2016 reveals no evidence of acquired or familial thrombophilia. Labs documented on admission, WBC count of 9680, hemoglobin 13.9, platelet count 158,000. Sodium 141, potassium 3.9, chloride 105, carbon dioxide 27, BUN 23, creatinine 1.3. LFTs otherwise unremarkable. RADIOGRAPHIC DATA: CTA of the chest, small filling defect within the origin of the right upper lobe pulmonary artery consistent with a small pulmonary embolus, repeat lower extremity Doppler, persistent thrombus within the left popliteal, posterior tibial and peroneal veins. IMPRESSION: 1. Pulmonary embolism. 2. Left lower extremity deep venous thrombosis. 3. Prostatitis versus prostate cancer. 4. Thrombophilia, negative hypercoag panel. PLAN: In summary, is a pleasant 56-year-old gentleman well known to the [facility]. He was actually seen in the outpatient office about a week or two ago. He had been recently diagnosed with left lower extremity DVT. Again unprovoked and was placed on Xarelto b.i.d. He was in his second week of therapy when he developed a substernal chest pain leading to admission. Clearly, the presence of a PE represents Xarelto failure and recommended the hospitalist place Joe on unfractionated heparin or low molecular weight heparin. He was seen and examined this afternoon. Chest pain is still present intermittently and is receiving low dose opioids for relief. I had made plans to bridge him with Lovenox leading up to his prostate procedure which is scheduled next week. I have asked Joe to delay such a procedure at least for another month or so to allow this pulmonary embolism to stabilize. I have recommended switching him to Lovenox 1 mg/kg subQ b.i.d. Once he undergoes his diagnostic procedure, he can then transition to Coumadin. I have also recommended he touch base with Dr. Roberts in the anticoagulation clinic to monitor Coumadin. Joe has followup set up to return to the [facility] at his normal interval. Thank you for allowing us to participate in his care. If you have any questions or concerns, feel free to contact me at any time. MTDD
[2016-12-27] VITALS: BP 130/86; PULSE 67; TEMP 37; O2SAT 96
[2016-12-27] MEDS: MoRPHine SULFATE 2 MG/ML CARP IV PRN ×2 (00:56→05:00)
[2016-12-27 04:00] VITALS: BP 123/89; PULSE 60; TEMP 37; O2SAT 97
[2016-12-27] MEDS: ENOXAPARIN 80 MG/0.8 ML SYR SQ SCH (05:00)
[2016-12-27 06:38] LABS: PARTIAL THROMBOPLASTIN RATIO 1.1
[2016-12-27 07:18] VITALS: BP 120/83; PULSE 61; TEMP 36.7; O2SAT 97
[2016-12-27] MEDS ORDERED: DOCUSATE SODIUM 100 MG CAP PO ONE (08:30)
[2016-12-27] MEDS ORDERED: HYDROCODONE/ACETAMOPHEN 5/325MG TAB PO PRN (08:30)
[2016-12-27] MEDS ORDERED: DOCUSATE SODIUM 100 MG CAP PO PRN (08:30)
[2016-12-27] MEDS ORDERED: TYL325X PO (08:32)
[2016-12-27] MEDS ORDERED: LVNIS80 SQ (08:32)
[2016-12-27] MEDS ORDERED: HYDR-5688 PO (08:32)
[2016-12-27] MEDS ORDERED: VNTHFA/IN INH (08:32)
--- NOTE | 2016-12-27 08:36 | Discharge Instructions ---
Discharge Instructions Date of Service Dec 27, 2016. Admission Reason for Admission: Pe (Pulmonary Embolism) Discharge Discharge Diagnosis / Problem: (1) PE (pulmonary embolism) (2) Prostate cancer VTE Date & Time Date of VTE Diagnosis: Dec 25, 2016 Time of VTE Diagnosis: 02:07 Discharge Goals Goal(s): Decrease discomfort, Improve function, Increase independence, Improve disease control, Improve nutritional status, Learn about illness, Diagnostic testing, Therapeutic intervention, Prevent Disease Progression, Specific goals Activity Recommendations Activity Limitations: as noted below Exercise/Sports Limitations: gradually increase as tolerated May Resume Sexual Activity: when tolerated Shower/Bathe: no limitations Driving or Machine Use: no limitations . Instructions / Follow-Up Instructions / Follow-Up you have new acute Pulmonary embolism with history of Pulmonary embolism you have going on Left lower extremity deep venous thrombosis. you have prostate cancer. you have Xarelto failure and now need Lovenox 1 mg/kg subQ b.i.d. Once you undergoes your diagnostic procedure, you can then transition to Coumadin. you need to follow up with PCP and to touch base with Dr. Roberts in the anticoagulation clinic to monitor Coumadin in hte future you need to followup with Dr. Dorantes and Urologist for further care . - you need to follow up with your primary care physician in 1 week, - take medication as instructed, never overdose or any misuse, or take with alcohol, because misuse of medicine may cause organ damage or , call your primary care physician if have questions of medicaitons. - call your primary care physician OR go to local emergency room if has any fever/chill, chest pain, shortness of breathing, nausea/vomiting/abdominal pain , facial droop/slurry speech/local weakness, or if has any questions. - fall precaution - diet as instructed - you need to follow up with your subspecialists - you should understand that it is important to follow up the above instruction , and "not following the above instruction" may cause delayed or missed care of your medical conditions which may cause permanent organ damage and even . Medication Instructions: Your condition is typically treated with an anticoagulant. Anticoagulants will thin your blood to help prevent new clots. * You should take her medication exactly as directed. * Never skip a dose. * Never take a double dose. If you miss a dose, take it as soon as you remember. Call your Primary Care doctor if you experience any of the following: * Swelling or Pain in your leg * Sudden, continuous pain deep in a muscle * Pain that worsens when you are active or when you stand still for a long time * Chest Pain * Sudden Shortness of Breath * Rapid or pounding heart beat * Fainting * Dizziness * Cough with blood or bloody sputum * Sweating more than normal * Bruises * Heavy or uncontrolled bleeding * Blood in your urine, stool or vomit * Black or tarry stools Caring for Your Self at Home: * Avoid sitting, standing or lying down for long periods without moving your legs and feet * When traveling by car, stop to get out and move around at least once every 3 hours * On long airplane, train or bus rides, get up and move around when possible * If you can't get up, wiggle your toes and tighten your calves to keep your blood moving Follow Up: It is important for you to keep your follow up appointments with your medical provider. Current Hospital Diet Patient's current hospital diet: Regular Diet Discharge Diet Recommended Diet: Regular Diet Pending Studies Studies pending at discharge: no Laboratory Results Meds Administered (Past 24Hrs) Medications (Trade) Dose Ordered Sig/Eloy Route Start Time Stop Time Status Last Admin Dose Admin Sodium Chloride 250 ml @ 999 mls/hr Q16M STAT IV 12/25/16 13:40 12/25/16 13:55 DC 12/25/16 14:20 999 MLS/HR Sodium Chloride (Nss 1000ml) 1,000 ml @ 100 mls/hr Q10H STAT IV 12/25/16 13:40 12/25/16 17:42 DC 12/25/16 14:23 100 MLS/HR Heparin Sodium/ Dextrose (Heparin 25,000 Unit/500ml D5W) 25,000 unit STK-MED ONCE .ROUTE 12/25/16 15:10 12/25/16 15:13 DC 12/25/16 15:16 25,000 UNIT Morphine Sulfate (MoRPHine SULFATE INJ) 2 mg Q30M PRN IV 12/25/16 15:30 12/27/16 08:27 DC 12/27/16 05:00 2 MG Cyanocobalamin 500 mcg 500 mcg QAM PO 12/26/16 09:00 01/25/17 08:59 12/26/16 08:33 500 MCG Potassium Chloride/Dextrose/ Sod Cl 1,000 ml @ 150 mls/hr Q6H40M IV 12/25/16 17:42 12/26/16 00:21 DC 12/25/16 19:23 150 MLS/HR Heparin Sodium/ Dextrose 500 ml @ 30 mls/hr [id number] PRN IV 12/25/16 18:00 12/26/16 14:15 DC 12/25/16 22:56 32 MLS/HR Heparin Sodium (Porcine)/Syringe (Heparin Iv Bolus/Syringe) 3 ml @ 10 mls/min NOW ONCE IV 12/25/16 22:30 12/25/16 22:31 DC 12/25/16 22:54 10 MLS/MIN Enoxaparin Sodium (Lovenox Inj) 80 mg Q12H SQ 12/26/16 15:00 01/25/17 14:59 12/27/16 05:00 80 MG Medical Emergencies . Who to Call and When: Medical Emergencies: If at any time you feel your situation is an emergency, please call 911 immediately. . Non-Emergent Contact Non-Emergency issues call your: Primary Care Provider, Oncologist, Urologist . . "Provider Documentation" section prepared by Donal Phillips. VTE Core Measure Inpt VTE Proph given/why not?: Enoxaparin (Lovenox)SQ
[2016-12-27] MEDS: CYANOCOBALAMIN 500 MCG TAB (VIT B-12) PO SCH (08:47)
[2016-12-27] MEDS ORDERED: ALBUTEROL HFA 8 GM INHALER INH SCH ×2 (10:00→12:00)
[2016-12-27 10:43] VITALS: BP 135/96; PULSE 65; TEMP 36.6; O2SAT 95
--- NOTE | 2016-12-27 11:20 | Discharge Summary ---
Discharge Summary Date of Service Dec 27, 2016. Discharge Summary Admission Date: Dec 25, 2016 at 15:24 Discharge Date: Dec 27, 2016 Discharge Disposition: Home Principal Diagnosis: new acute Pulmonary embolism with history of Pulmonary embolism Problems/Secondary Diagnoses: history of Pulmonary embolism on going Left lower extremity deep venous thrombosis. prostate cancer. Xarelto failure Consultations: Oncology, Medication Reconciliation New Medications: Albuterol Hfa (Ventolin Hfa) 200 Puffs/67626 Mcg Aers 2-4 PUFFS INH Q6H for Shortness of Breath for 7 Days, #1 INHALER Hydrocodone/Acetaminophen 5MG/325MG (Sargeant 5MG/325MG) Tab 1 TAB PO TID PRN for Pain for 5 Days, #10 TAB PRN PAIN Acetaminophen (Tylenol) 325 Mg Tab 650 MG PO Q4H PRN for Pain or Fever for 7 Days, #56 TAB Enoxaparin (Lovenox) 80 Mg/0.8 Ml Inj 80 MG SQ Q12H for 30 Days use as directed Continued Medications: Baclofen (Lioresal) 10 Mg Tab 10 MG PO HS PRN for RN, TAB Cyanocobalamin (B-12) 250 Mcg Tab 500 MCG PO QAM Xzhlsvaddpn-Iuwwaxyscej-Hv Cho (Glucosamine Chondroitin &) 1 Tab Tab 1 TAB PO QAM Hydrocortisone Acetate (Anucort-Hc) 25 Mg Supp 1 DOSE RE BID PRN for RN Lidocaine (Lidoderm Patch 5%) 1 Ea Tdsy 1 DOSE TOP PRN Metaxalone (Metaxalone) 400 Mg Tab 800 MG PO Q8H PRN for Pain Multivitamin (Multivitamin) Tab 1 TAB PO QAM Discontinued Medications: Oxygen (Oxygen) Gas 2 LITERS NA HS Rivaroxaban (Xarelto) 15 Mg Tab 15 MG PO BID Discharge Exam Doing well, no complaining, mild chest pain when cough, cough was dry cough no hemoptysis Review of Systems: Constitutional: No chills, No fatigue, No fever, No problem reported, No sweats, No weakness, No weight loss Eyes: No diplopia, No discharge, No eye pain, No problem reported, No redness, No worsening of vision ENT: No dental problems, No hearing loss, No nasal symptoms, No problem reported, No sore throat, No tinnitus, No trouble swallowing, No unusual epistaxis Respiratory: + cough, No dyspnea at rest, No dyspnea on exertion, No hemoptysis, No problem reported, No shortness of breath, No sputum, No wheezing Cardiovascular: + chest pain, No PND, No claudication, No edema, No orthopnea, No palpitations, No problem reported Abdomen: No GI bleeding, No constipation, No diarrhea, No nausea, No pain, No problem reported, No vomiting Musculoskeletal: No calf pain, No joint pain, No muscle pain, No problem reported, No swelling Genitourinary - Male: No dysuria, No hematuria, No impotence, No lesions, No penile discharge, No problem reported, No urinary frequency, No urinary hesitancy, No urinary incontinence, No urinary retention, No urinary urgency Neurologic: No balance problems, No memory loss, No numbness/tingling, No paralysis, No problem reported, No vertigo, No weakness Psychiatric: No anhedonism, No anxiety, No depression symptoms, No insomnia , No problem reported, No substance abuse Endocrine: No excessive thirst, No excessive urination, No fatigue, No problem reported Hematologic / Lymphatic: No abnormal bleeding/bruising, No clotting problems , No night sweats, No problem reported, No swollen lymph nodes Integumentary: No bleeding, No color change, No itch, No new/changing skin lesions, No problem reported, No rash Physical Exam: General Appearance: WD/WN, no apparent distress, + pertinent finding (looks tired, mild pale) Eyes: normal inspection, PERRL ENT: normal ENT inspection, hearing grossly normal Neck: supple, no adenopathy Respiratory/Chest: chest non-tender, normal breath sounds, no respiratory distress, no accessory muscle use, + decreased breath sounds Cardiovascular: regular rate, rhythm, no edema, no gallop, no JVD Abdomen / GI: normal bowel sounds, non tender, soft, no organomegaly, no pulsatile mass Extremities: normal inspection, no calf tenderness Neurologic/Psychiatric: heart nurse II-XII nml as tested, no motor/sensory deficits , alert, normal mood/affect, normal reflexes Skin: normal color, warm/dry Hospital Course 56 y/o M w/Hx recent DVT currently on Xarelto. Pt developed acute pleuritic CP and SOB and presented to the ER. A CTA revealed a small upper lobe PE. The ER attending had discussed this with hematology who have instructed to place the pt on a heparin infusion due to Xarelto failure. 1) PE - known DVT 2 weeks prior - this may constitute Xarelto failure. LE US neg for any DVT. CTA PE is small and may be residual. ethnoarchaeology professor saw patient,, recommend Lovenox 1 mg/kg, and follow-up with ethnoarchaeology professor in the office And need to follow-up with urologist for their planning out procedure, After prostate procedure patient need to switch over to Coumadin I checked Lovenox co-pay which is $8 per months O2 protocol , has taper off oxygen analgesia provided. Have had nurse have Lovenox teaching Patient has history of PE was on Lovenox before, he reported able to do Lovenox injection at home 2) Prostate CA - Follows with Dr. Martínez and Dr. Leonard, I told patient to keep the appointment Full code - full dose Heparin Patient condition is doing well today, stable, agree up on the care plan and discharge plan Instructions / Follow-Up you have new acute Pulmonary embolism with history of Pulmonary embolism you have going on Left lower extremity deep venous thrombosis. you have prostate cancer. you have Xarelto failure and now need Lovenox 1 mg/kg subQ b.i.d. Once you undergoes your diagnostic procedure, you can then transition to Coumadin. you need to follow up with PCP and to touch base with Dr. Roberts in the anticoagulation clinic to monitor Coumadin in hte future you need to followup with Dr. Dorantes and . Urologist for further care . - you need to follow up with your primary care physician in 1 week, - take medication as instructed, never overdose or any misuse, or take with alcohol, because misuse of medicine may cause organ damage or , call your primary care physician if have questions of medicaitons. - call your primary care physician OR go to local emergency room if has any fever/chill, chest pain, shortness of breathing, nausea/vomiting/abdominal pain , facial droop/slurry speech/local weakness, or if has any questions. - fall precaution - diet as instructed - you need to follow up with your subspecialists - you should understand that it is important to follow up the above instruction , and "not following the above instruction" may cause delayed or missed care of your medical conditions which may cause permanent organ damage and even . Total Time Spent: Greater than 30 minutes This includes examination of the patient, discharge planning, medication reconciliation, and communication with other providers. Discharge Instructions Please refer to the electronic Patient Visit Report (Discharge Instructions) for additional information. Additional Copies To Tripp Carey M.D.; Arnol Martínez D.O.; Salo Leonard M.D.
[2016-12-27 13:47] LABS: PARTIAL THROMBOPLASTIN RATIO 1.1
[2017-01-03] MEDS ORDERED: CHOL1000 PO (09:12)
[2017-01-03 09:29] LABS: ISTAT CREATININE 1.1 mg/dl (0.6-1.3); ISTAT HEMOGLOBIN 15.3 g/dl (14.0-18.0); ISTAT IONIZED CALCIUM 1.24 mmol/l (1.12-1.32)
[2017-01-06] MEDS ORDERED: WARF5TAB7 PO (09:04)
[2017-01-11] MEDS ORDERED: HYDR-5688 PO (09:21)
[2017-01-17] MEDS ORDERED: WARF7.5T4 PO (09:18)
[2017-01-29] MEDS ORDERED: COLC0.6T54 PO (18:17)
[2017-01-29] MEDS ORDERED: PANT40TA PO (18:17)
[2017-01-29] MEDS ORDERED: IBUP-1449 PO (18:17)
[2017-02-10] MEDS ORDERED: IBUP-1459 PO (09:13)
[2017-04-18] MEDS ORDERED: NALT50TA5 PO (16:03)
[2017-04-18] MEDS ORDERED: BUSP-8 PO (16:03)
[2017-04-18] MEDS ORDERED: TRAZ50TA35 PO (16:03)
[2017-04-21] MEDS ORDERED: ESCI10TA17 PO (07:57)
[2017-04-25] MEDS ORDERED: HYDR-4383 PO (08:56)
[2017-06-16] MEDS ORDERED: CHOL1CAP26 PO (11:52)
[2017-06-16] MEDS ORDERED: OXGN (11:53)
[2017-06-28] MEDS ORDERED: ENOX80IN SQ (06:06)
[2017-06-30] MEDS ORDERED: CIPR-255 PO (07:19)
[2017-06-30] MEDS ORDERED: HYDR-4383 PO (07:19)
== END 2016-12-27 16:00 | disposition home or self-care (01) | DRG 176 ==
LOC: ENRESERVDT → ENRESERVTM → C.EDB 13:25 → C.2E 15:24
PROVIDERS: ADMIT Internal Medicine; ATTEND Hospitalist
DX: I26.99 Other pulmonary embolism without acute cor pulmonale (principal); I82.502 Chronic embolism and thrombosis of unspecified deep veins of left lower extremity; C61 Malignant neoplasm of prostate; Z86.711 Personal history of pulmonary embolism; Z79.01 Long term (current) use of anticoagulants; G47.34 Idiopathic sleep related nonobstructive alveolar hypoventilation

== ENCOUNTER 2017-01-28 12:17 | Observation (INO) | payer BC ==
[~2017-01-28] VITALS: Ht 184.2 cm; Wt 85.6 kg
[~2017-01-28 12:17] MED LIST changes: -ASPI81TA28 PO; +CHOL1000 PO; +HYDR-5688 PO; -OXGN; +TYL325X PO; +WARF5TAB7 PO; +WARF7.5T4 PO
[2017-01-28] MEDS ORDERED: ASPIRIN 81 MG CHEW PO STA (13:17)
[2017-01-28] MEDS ORDERED: FENTANYL CITRATE INJ 50 MCG/1 ML 2 ML VIAL IV STA (13:17)
[2017-01-28] MEDS ORDERED: SODIUM CHLORIDE 0.9% 1000ML 1,000 ML IV STA (13:17)
[2017-01-28 13:28] LABS: ISTAT CREATININE 1.1 mg/dl (0.6-1.3); ISTAT HEMOGLOBIN 14.6 g/dl (14.0-18.0); ISTAT IONIZED CALCIUM 1.17 mmol/l (1.12-1.32)
[2017-01-28] MEDS ORDERED: OPTIRAY 320 IV PRN (13:30)
[2017-01-28 13:31] LABS: BASO % 0.4 %; BASO ABS # 0.03 K/uL (0-0.2); COMPLETE YES; EOS % 2.1 %; HEMATOCRIT 42.4 % (42-52); IG% 0.4 %; LYMPH ABS # 1.51 K/uL (1.2-3.4); MEAN CELL VOLUME 93.2 fL (80-100); MEAN CORPUSCULAR HEMOGLOBIN 32.7 pg (25-34); MEAN CORPUSCULAR HGB CONC 35.1 g/dl (32-36); MEAN PLATELET VOLUME 10.7 fL (7.4-10.4); MONO % 9.8 %; NEUT % 69.3 %; PLATELET COUNT 162 K/uL (130-400); RED BLOOD COUNT 4.55 M/uL (4.7-6.1); WHITE BLOOD COUNT 8.38 K/uL (4.8-10.8)
--- NOTE | 2017-01-28 13:34 | DIAGNOSTIC IMAGING REPORT ---
CHEST ONE VIEW PORTABLE CLINICAL HISTORY: Chest pain. COMPARISON STUDY: Chest radiograph December 25, 2016. FINDINGS: Lung volumes are normal. There is no pneumothorax or pleural effusion. Pulmonary vascularity is normal. Cardiac size is normal. Mediastinal contours are normal. IMPRESSION: No acute cardiopulmonary findings. Electronically signed by: Jaguar Mckeon M.D. 01/28/2017 1:32 PM Dictated Date/Time: 01/28/2017 1:31 PM
[2017-01-28 13:41] LABS: INR 2.5 (0.9-1.1); PROTHROMBIN TIME (PATIENT) 27.4 SECONDS (9.0-12.0)
[2017-01-28 13:52] LABS: BLOOD UREA NITROGEN 17 mg/dl (7-18); BUN/CREATININE RATIO 13.9 (10-20); CALCIUM 8.7 mg/dl (8.5-10.1); CARBON DIOXIDE 27 mmol/L (21-32); CHLORIDE 108 mmol/L (98-107); GLUCOSE 98 mg/dl (70-99); SODIUM 141 mmol/L (136-145)
[2017-01-28 13:57] LABS: CKMB/CK RATIO 0.6 (0-3.0)
--- NOTE | 2017-01-28 14:16 | DIAGNOSTIC IMAGING REPORT ---
CT ANGIOGRAPHY OF THE CHEST, PULMONARY EMBOLUS PROTOCOL CLINICAL HISTORY: Chest pain and shortness of breath. History of pulmonary emboli. COMPARISON STUDY: Chest CT December 25, 2016 and chest radiograph performed earlier today. TECHNIQUE: Following IV administration of 104 mL of Optiray-320, helical axial images of the chest were obtained utilizing the pulmonary embolus protocol. Maximal intensity projections and sagittal and coronal reformats were viewed on an independent 3D workstation. IV contrast was administered without complication. CT DOSE: 497.70 mGy.cm FINDINGS: No pulmonary emboli are identified. There is no evidence of thoracic aortic dissection. The size of the heart is normal. There is no pericardial effusion. No enlarged thoracic lymph nodes are present. No consolidation is identified. There is no pneumothorax or pleural effusion. The bony thorax is unremarkable. A few hypodense hepatic lesions are unchanged and likely reflect cysts. IMPRESSION: 1. No pulmonary emboli identified. 2. No acute intrathoracic findings. Electronically signed by: Jaguar Mckeon M.D. 01/28/2017 2:14 PM Dictated Date/Time: 01/28/2017 2:05 PM
--- NOTE | 2017-01-28 15:03 | DIAGNOSTIC IMAGING REPORT ---
BILATERAL LOWER EXTREMITY VENOUS DOPPLER HISTORY: lower leg pain w/ previous clots COMPARISON STUDY: Venous Doppler 12/25/2016. FINDINGS: On the right, no DVT was identified. On the left, thrombus is again identified within the left popliteal vein as well within one peroneal vein, and one posterior tibial vein. The left sided thrombus appears slightly improved when compared the prior study. IMPRESSION: 1. No evidence of right lower extremity DVT 2. Persistent thrombus within the left popliteal vein, posterior tibial vein, and peroneal vein. There has been slight improvement when compared the prior study. Electronically signed by: Ramob Spencer M.D. 01/28/2017 3:00 PM Dictated Date/Time: 01/28/2017 2:55 PM
[2017-01-28] MEDS ORDERED: NITROGLYCERIN 0.4 MG SL PER TAB CHARGE SL PRN (15:30)
--- NOTE | 2017-01-28 17:07 | History and Physical ---
History & Physical Date & Time of Service: Jan 28, 2017 at 16:36 Chief Complaint: Chest Pain Primary Care Physician: Tripp Carey M.D. History of Present Illness Source: patient Patient diagnosed with PE in 2013 and was on Coumadin for 6 months. After he came off, he developed superficial clots, so was put back on Coumadin , which he continued for 2 years until he was taken off in Jun 2016. Patient diagnosed with prostate cancer in Oct 2016 ([place] [facility]). Prostatectomy scheduled for Nov. U/S scan was performed pre-operatively given history only to find multiple left leg DVTs. Patient was started on Xarelto, which he took for ~ 15 days, until he developed SOB and was diagnosed with PE. Xarelto was discontinued and Coumadin was restarted. Patient states he is compliant with Coumadin. He attends Coumadin clinic in [facility] with Dr. Roberts. Last check on 01/26/17 was 2.1. Today INR was 2.5 Regimen: Coumadin 10mg nightly except 7.5 mg Tue and Tue Yesterday at work, patient was feeling extremely tired, mentioned he looked pale when he came home. He went to bed and slept 13 hours, baseline 4-5 hours of sleep nightly. Upon waking, patient felt back pain, but took norco, and went out to rake leaves - became extremely SOB acutely and felt band squeezing along epigastrium. Denies pleuritic pain, but did feel air hunger. SOB did not resolve upon sitting and chest pain became more localized to left side, and so patient decided to seek medical care. Patient currently not SOB, but still has left sided chest pain (localized without radiation to back, jaw, neck arm). The area is tender to palpation but the pain is deep. Pain has been dull since admission subsequent to pain meds received in the ED, but has still been persistently present, rated 6/10 currently. Pain is not affected by position. No associated nausea or vomiting. Patient was diaphoretic, but denies fevers or chills. He admits he did feel lightheaded/couldn't focus. No presyncope/LOC/falls. Patient says pain does not feel like previous PE's Past Medical/Surgical History Medical Problems: (1) Acute Venous Embolism & Thrombosis Deep Vessels Proximal Le Status: Resolved (2) Idiopath Sleep Related Non-Obstruc Alveolar Hypoventilation Status: Chronic (3) Pain In Limb Status: Resolved (4) Prostate cancer Status: Chronic Family History Cancer BROTHER, Onset:50's - 60 (bladder cancer) MOTHER, Onset:60 years & older (uterine and stomach cancer) Diabetes mellitus SON (Type 1 DM) Social History Smoking Status: Never Smoker Drug Use: none Marital Status: Housing status: lives with family Occupational Status: employed Multi-Drug Resistant Organisms History of MDRO: No Allergies Coded Allergies: No Known Allergies (Unverified , 12/25/16) Home Medications Scheduled Cholecalciferol (Vitamin D3), 5 TAB PO DAILY Colchicine (Colchicine), 0.6 MG PO BID Cyanocobalamin (B-12), 500 MCG PO QAM Pyfrinmxpeb-Wsncnhqxgvk-Pp Cho (Glucosamine Chondroitin &), 1 TAB PO QAM Ibuprofen Tab (Motrin), 1 TAB PO TID Lidocaine (Lidoderm Patch 5%), 1 DOSE TOP PRN Multivitamin (Multivitamin), 1 TAB PO QAM Pantoprazole Sodium (Protonix), 1 TAB PO QAM Warfarin Sod (Jantoven), 10 MG PO 6XWK Warfarin Sod (Jantoven), 7.5 MG PO 1XWK Scheduled PRN Baclofen (Lioresal), 10 MG PO HS PRN for RN Hydrocodone/Acetaminophen 5MG/325MG ([place] 5MG/325MG), 1 TABLET PO Q6H PRN for Pain Hydrocortisone Acetate (Anucort-Hc), 1 DOSE RE BID PRN for RN Metaxalone (Metaxalone), 800 MG PO Q8H PRN for Pain Review of Systems Constitutional: + fatigue, + sweats, No chills, No fever, No weakness, No weight loss ENT: No sore throat Respiratory: + cough (unchanged since last PE), + dyspnea on exertion, No hemoptysis, No shortness of breath, No sputum Cardiovascular: + chest pain, No PND, No edema, No orthopnea, No palpitations Abdomen: + GI bleeding (due to hemorrhoids), + pain, No constipation, No diarrhea, No nausea, No vomiting Genitourinary - Male: + urinary hesitancy, + urinary retention, No dysuria, No hematuria, No urinary frequency, No urinary incontinence Integumentary: No bleeding, No itch, No rash Allergic / Immunologic: No environmental allergies, No food allergies, No seasonal allergies Physical Exam Vital Signs Date Time Temp Pulse Resp B/P Pulse Ox O2 Delivery O2 Flow Rate FiO2 01/28/17 12:51 86 01/28/17 12:30 36.6 89 18 151/86 99 Room Air General Appearance: WD/WN, no apparent distress Head: normocephalic, atraumatic Eyes: normal inspection, EOMI, sclerae normal ENT: hearing grossly normal, pharynx normal Neck: supple, no adenopathy, thyroid normal, no JVD Respiratory/Chest: lungs clear, normal breath sounds, no respiratory distress, no accessory muscle use Cardiovascular: regular rate, rhythm, no edema, no JVD, no murmur, normal peripheral pulses Abdomen/GI: normal bowel sounds, non tender, soft, no organomegaly Extremities/Musculoskelatal: no calf tenderness, no pedal edema Neurologic/Psych: alert, normal mood/affect, oriented x 3 Skin: normal color, warm/dry, no rash Diagnostics Laboratory Results Results Past 24 Hours Test 01/28/17 13:10 01/28/17 13:15 Range/Units White Blood Count 8.38 4.8-10.8 K/uL Red Blood Count 4.55 4.7-6.1 M/uL Hemoglobin 14.9 14.0-18.0 g/dL Hematocrit 42.4 42-52 % Mean Corpuscular Volume 93.2 80-100 fL Mean Corpuscular Hemoglobin 32.7 25-34 pg Mean Corpuscular Hemoglobin Concent 35.1 32-36 g/dl Platelet Count 162 130-400 K/uL Mean Platelet Volume 10.7 7.4-10.4 fL Neutrophils (%) (Auto) 69.3 % Lymphocytes (%) (Auto) 18.0 % Monocytes (%) (Auto) 9.8 % Eosinophils (%) (Auto) 2.1 % Basophils (%) (Auto) 0.4 % Neutrophils # (Auto) 5.81 1.4-6.5 K/uL Lymphocytes # (Auto) 1.51 1.2-3.4 K/uL Monocytes # (Auto) 0.82 0.11-0.59 K/uL Eosinophils # (Auto) 0.18 0-0.5 K/uL Basophils # (Auto) 0.03 0-0.2 K/uL RDW Standard Deviation 45.3 36.4-46.3 fL RDW Coefficient of Variation 13.3 11.5-14.5 % Immature Granulocyte % (Auto) 0.4 % Immature Granulocyte # (Auto) 0.03 0.00-0.02 K/uL Prothrombin Time 27.4 9.0-12.0 SECONDS Prothromb Time International Ratio 2.5 0.9-1.1 Sodium Level 141 136-145 mmol/L Potassium Level 4.0 3.5-5.1 mmol/L Chloride Level 108 98-107 mmol/L Carbon Dioxide Level 27 21-32 mmol/L Anion Gap 6.0 18.0 16-25 mmol/L Blood Urea Nitrogen 17 7-18 mg/dl Creatinine 1.20 0.60-1.40 mg/dl Est Creatinine Clear Calc Drug Dose 77.5 ml/min Estimated GFR () 78.4 Estimated GFR (Non- 67.7 BUN/Creatinine Ratio 13.9 10-20 Random Glucose 98 70-99 mg/dl Calcium Level 8.7 8.5-10.1 mg/dl Total Creatine Kinase 116 39-308 U/L Creatine Kinase MB 0.7 0.5-3.6 ng/ml Creatine Kinase MB Ratio 0.6 0-3.0 Troponin I < 0.015 0-0.045 ng/ml Bedside Hemoglobin 14.6 14.0-18.0 g/dl Bedside Hematocrit 43 42-52 % Bedside Sodium 140 135-144 mEq/L Bedside Potassium 4.0 3.3-5.0 mEq/L Bedside Chloride 103 101-112 mEq/L Bedside Total CO2 24 24-31 mEq/l Bedside Blood Urea Nitrogen 17 7-18 mg/dl Bedside Creatinine 1.1 0.6-1.3 mg/dl Bedside Glucose (other) 99 70-99 mg/dl Bedside Ionized Calcium ([place]) 1.17 1.12-1.32 mmol/l Diagnostic Radiology CT ANGIOGRAPHY OF THE CHEST, PULMONARY EMBOLUS PROTOCOL 1. No pulmonary emboli identified. 2. No acute intrathoracic findings. BILATERAL LOWER EXTREMITY VENOUS DOPPLER 1. No evidence of right lower extremity DVT 2. Persistent thrombus within the left popliteal vein, posterior tibial vein, and peroneal vein. There has been slight improvement when compared the prior study. CXR normal Normal EKG, No change from prior EKG (25-DEC-2016 16:25) Impression Assessment and Plan 56 year old male with prostate cancer, longstanding back pain, recent PE and DVT admitted under observation for chest pain Chest pain - Start aspirin 81mg daily - Troponin x 2 more - Echo to assess for right heart strain secondary to PEs Previous PE/DVT - Continue warfarin - Recheck INR Prostate cancer - Not on any meds. Plans to follow up with Saima Leonard and assess plans for surgery outpatient on 02/09 Back pain - Continue home pain meds DVT prophylaxis - Not indicated as he is already anticoagulated Dispo: Telemetry Code status: Full code Level of Care Telemetry Advanced Directives Existing Advance Directive: Yes Existing Living Will: Yes Existing Power of Upholstery Technician: Yes () Existing Health Care Proxy: Yes Resuscitation Status FULL RESUSCITATION (Off life support if futile) VTE Prophylaxis VTE Risk Assessment Done? Y/N: Yes Risk Level: High Given or contraindicated: Warfarin (Coumadin) Social Service Consult None Apply Resident Tracking Resident Involvement: Resident Care Provided Care Provided: Adult Hospital Medicine Assessment and Plan Attending Addendum: I have physically seen and examined this patient, have directed their medical care, have supervised the medical residents activities, and agree with the H&P as noted above, with the following changes: NONE
[2017-01-28] MEDS ORDERED: ALUMINUM/MAGNESIUM/SIMETH (MAALOX MAX) 30 ML UDC PO PRN (17:15)
[2017-01-28] MEDS ORDERED: POLYETHYLENE (MIRALAX) 17 GM PACK PO PRN (17:15)
[2017-01-28] MEDS ORDERED: MAGNESIUM HYDROXIDE SUSP 30 ML UDC PO PRN (17:15)
[2017-01-28] MEDS ORDERED: ACETAMINOPHEN 325 MG TAB PO PRN (17:15)
[2017-01-28] MEDS ORDERED: ONDANSETRON INJ 2 MG/ML 2 ML VIAL IV PRN (17:15)
[2017-01-28] MEDS ORDERED: BACLOFEN 10 MG TAB PO PRN (17:45)
[2017-01-28] MEDS ORDERED: HYDROCORTISONE ACETATE 25 MG SUPP PR PRN (17:45)
--- NOTE | 2017-01-28 18:03 | EMERGENCY ROOM VISIT NOTE ---
History Report prepared by Arnoldo: Paty Bone Under the Supervision of: Dr. Pascual Ortiz D.O. First contact with patient: 13:01 Chief Complaint: CHEST PAIN Stated Complaint: CHEST PAIN History of Present Illness The patient is a 56 year old male who presents to the Emergency Room with complaints of persistent chest pain starting last night. He has a history of PE and DVT. He has pain in his calf and SOB starting last night. He has sharp pain in his chest with deep breaths which is consistent with his previous PEs. This morning he started getting a dull aching pain which was different from the symptoms he experienced with his PEs. He was outside raking leaves when this pain started. He had a blood clot in his leg 3 weeks ago. He was on Xarelto and was recently switched to Coumadin. He has prostate cancer. He denies any cough, rhinorrhea, or sore throat. He denies any history of heart disease, diabetes or hypertension. He denies any history of smoking. Source of History: patient Onset: last night Position: chest Symptom Intensity: persistent Quality: sharp, dull Timing: other (persistent) Modifying Factors (Worsening): breathing Associated Symptoms: + SOB, No cough, No sorethroat Note: Pt reports calf pain. Pt denies rhinorrhea. Review of Systems See HPI for pertinent positives & negatives. A total of 10 systems reviewed and were otherwise negative. 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 (4) Pain In Limb (5) Prostate cancer Family History Cancer BROTHER, Onset:50's - 60 (bladder cancer) MOTHER, Onset:60 years & older (uterine and stomach cancer) Diabetes mellitus SON (Type 1 DM) Social History Smoking Status: Never Smoker Alcohol Use: occasionally Drug Use: none Marital Status: Housing Status: lives with family Occupation Status: employed Current/Historical Medications Scheduled Cholecalciferol (Vitamin D3), 5 TAB PO DAILY Cyanocobalamin (B-12), 500 MCG PO QAM Uavcunfjpsl-Qempkzbvltz-Fe Cho (Glucosamine Chondroitin &), 1 TAB PO QAM Lidocaine (Lidoderm Patch 5%), 1 DOSE TOP PRN Multivitamin (Multivitamin), 1 TAB PO QAM Warfarin Sod (Jantoven), 10 MG PO 5XWK Warfarin Sod (Jantoven), 7.5 MG PO 2XWK Scheduled PRN Baclofen (Lioresal), 10 MG PO HS PRN for RN Hydrocodone/Acetaminophen 5MG/325MG ([place] 5MG/325MG), 1 TABLET PO Q6H PRN for Pain Hydrocortisone Acetate (Anucort-Hc), 1 DOSE RE BID PRN for RN Metaxalone (Metaxalone), 800 MG PO Q8H PRN for Pain Allergies Coded Allergies: No Known Allergies (Unverified , 12/25/16) Physical Exam Vital Signs Date Time Temp Pulse Resp B/P Pulse Ox O2 Delivery O2 Flow Rate FiO2 01/28/17 16:47 69 97 01/28/17 15:13 139/86 01/28/17 13:17 80 12 89 01/28/17 12:51 86 01/28/17 12:47 87 22 95 01/28/17 12:34 148/96 01/28/17 12:30 36.6 89 18 151/86 99 Room Air Physical Exam GENERAL: sitting up in bed, disheveled, no acute distress, nontoxic. EYE EXAM: normal conjunctiva OROPHARYNX: no exudate, no erythema, lips, buccal mucosa, and tongue normal and mucous membranes are moist NECK: supple, no nuchal rigidity, no adenopathy, non-tender LUNGS: Clear to auscultation. Normal chest wall mechanics HEART: no murmurs, S1 normal and S2 normal ABDOMEN: abdomen soft, non-tender, normo-active bowel sounds, no masses, no rebound or guarding. BACK: Back is symmetrical on inspection and there is no deformity, no midline tenderness, no CVA tenderness. SKIN: no rashes and no bruising UPPER EXTREMITIES: upper extremities are grossly normal. LOWER EXTREMITIES: No pitting edema. Calves equal bilaterally. NEURO EXAM: Normal sensorium, cranial nerves II-XII grossly intact, normal speech, no gross weakness of arms, no gross weakness of legs. Medical Decision & Procedures ER Provider Diagnostic Interpretation: Xray results as stated below per radiologists and my interpretation. Radiology results as stated below per my review and the radiologist's interpretation: CHEST ONE VIEW PORTABLE CLINICAL HISTORY: Chest pain. COMPARISON STUDY: Chest radiograph December 25, 2016. FINDINGS: Lung volumes are normal. There is no pneumothorax or pleural effusion. Pulmonary vascularity is normal. Cardiac size is normal. Mediastinal contours are normal. IMPRESSION: No acute cardiopulmonary findings. Electronically signed by: Jaguar Mckeon M.D. 01/28/2017 1:32 PM Dictated Date/Time: 01/28/2017 1:[address] ANGIOGRAPHY OF THE CHEST, PULMONARY EMBOLUS PROTOCOL CLINICAL HISTORY: Chest pain and shortness of breath. History of pulmonary emboli. COMPARISON STUDY: Chest CT December 25, 2016 and chest radiograph performed earlier today. TECHNIQUE: Following IV administration of 104 mL of Optiray-320, helical axial images of the chest were obtained utilizing the pulmonary embolus protocol. Maximal intensity projections and sagittal and coronal reformats were viewed on an independent 3D workstation. IV contrast was administered without complication. CT DOSE: 497.70 mGy.cm FINDINGS: No pulmonary emboli are identified. There is no evidence of thoracic aortic dissection. The size of the heart is normal. There is no pericardial effusion. No enlarged thoracic lymph nodes are present. No consolidation is identified. There is no pneumothorax or pleural effusion. The bony thorax is unremarkable. A few hypodense hepatic lesions are unchanged and likely reflect cysts. IMPRESSION: 1. No pulmonary emboli identified. 2. No acute intrathoracic findings. Electronically signed by: Jaguar Mckeon M.D. 01/28/2017 2:14 PM Dictated Date/Time: 01/28/2017 2:05 PM BILATERAL LOWER EXTREMITY VENOUS DOPPLER HISTORY: lower leg pain w/ previous clots COMPARISON STUDY: Venous Doppler 12/25/2016. FINDINGS: On the right, no DVT was identified. On the left, thrombus is again identified within the left popliteal vein as well within one peroneal vein, and one posterior tibial vein. The left sided thrombus appears slightly improved when compared the prior study. IMPRESSION: 1. No evidence of right lower extremity DVT 2. Persistent thrombus within the left popliteal vein, posterior tibial vein, and peroneal vein. There has been slight improvement when compared the prior study. Electronically signed by: Rambo Spencer M.D. 01/28/2017 3:00 PM Dictated Date/Time: 01/28/2017 2:55 PM Laboratory Results 01/28/17 13:10 Red Blood Count 4.55, Mean Corpuscular Volume 93.2, Mean Corpuscular Hemoglobin 32.7, Mean Corpuscular Hemoglobin Concent 35.1, Mean Platelet Volume 10.7, Neutrophils (%) (Auto) 69.3, Lymphocytes (%) (Auto) 18.0, Monocytes (%) (Auto) 9.8, Eosinophils (%) (Auto) 2.1, Basophils (%) (Auto) 0.4, Neutrophils # (Auto) 5.81, Lymphocytes # (Auto) 1.51, Monocytes # (Auto) 0.82, Eosinophils # (Auto) 0.18, Basophils # (Auto) 0.03 01/28/17 13:10 Test 01/28/17 13:10 01/28/17 13:15 White Blood Count 8.38 K/uL (4.8-10.8) Red Blood Count 4.55 M/uL (4.7-6.1) Hemoglobin 14.9 g/dL (14.0-18.0) Hematocrit 42.4 % (42-52) Mean Corpuscular Volume 93.2 fL (80-100) Mean Corpuscular Hemoglobin 32.7 pg (25-34) Mean Corpuscular Hemoglobin Concent 35.1 g/dl (32-36) Platelet Count 162 K/uL (130-400) Mean Platelet Volume 10.7 fL (7.4-10.4) Neutrophils (%) (Auto) 69.3 % Lymphocytes (%) (Auto) 18.0 % Monocytes (%) (Auto) 9.8 % Eosinophils (%) (Auto) 2.1 % Basophils (%) (Auto) 0.4 % Neutrophils # (Auto) 5.81 K/uL (1.4-6.5) Lymphocytes # (Auto) 1.51 K/uL (1.2-3.4) Monocytes # (Auto) 0.82 K/uL (0.11-0.59) Eosinophils # (Auto) 0.18 K/uL (0-0.5) Basophils # (Auto) 0.03 K/uL (0-0.2) RDW Standard Deviation 45.3 fL (36.4-46.3) RDW Coefficient of Variation 13.3 % (11.5-14.5) Immature Granulocyte % (Auto) 0.4 % Immature Granulocyte # (Auto) 0.03 K/uL (0.00-0.02) Prothrombin Time 27.4 SECONDS (9.0-12.0) Prothromb Time International Ratio 2.5 (0.9-1.1) Est Creatinine Clear Calc Drug Dose 77.5 ml/min Estimated GFR () 78.4 Estimated GFR (Non- 67.7 BUN/Creatinine Ratio 13.9 (10-20) Calcium Level 8.7 mg/dl (8.5-10.1) Total Creatine Kinase 116 U/L (39-308) Creatine Kinase MB 0.7 ng/ml (0.5-3.6) Creatine Kinase MB Ratio 0.6 (0-3.0) Troponin I < 0.015 ng/ml (0-0.045) Bedside Hemoglobin 14.6 g/dl (14.0-18.0) Bedside Hematocrit 43 % (42-52) Bedside Sodium 140 mEq/L (135-144) Bedside Potassium 4.0 mEq/L (3.3-5.0) Bedside Chloride 103 mEq/L (101-112) Bedside Total CO2 24 mEq/l (24-31) Anion Gap 18.0 mmol/L (16-25) Bedside Blood Urea Nitrogen 17 mg/dl (7-18) Bedside Creatinine 1.1 mg/dl (0.6-1.3) Bedside Glucose (other) 99 mg/dl (70-99) Bedside Ionized Calcium ([place]) 1.17 mmol/l (1.12-1.32) Laboratory results per my review. Medications Administered Medications (Trade) Dose Ordered Sig/Eloy Route Start Time Stop Time Status Last Admin Dose Admin Sodium Chloride (Nss 1000ml) 1,000 ml @ 999 mls/hr Q1H1M STAT IV 01/28/17 13:17 01/28/17 14:17 DC 01/28/17 13:37 999 MLS/HR Aspirin (Aspirin Chew) 324 mg NOW STAT PO 01/28/17 13:17 01/28/17 13:19 DC 01/28/17 13:37 324 MG Fentanyl Citrate (Fentanyl Inj) 50 mcg NOW STAT IV 01/28/17 13:17 01/28/17 13:19 DC 01/28/17 13:36 50 MCG ECG Indication: chest pain Rate (beats per minute): 81 Rhythm: sinus rhythm Findings: no ectopy, other (normal intervals) Comparison ECG Date: 25-Dec-2016 Change: no significant change ED Course ED COURSE: Vital signs were reviewed and showed hypertension. The patients medical record was reviewed The above diagnostic studies were performed and reviewed. ED treatments and interventions as stated above. 1307: The patient was evaluated in room A3. A complete history and physical examination was performed. 1317: Fentanyl Citrate 50 mcg IV, Aspirin 324 mg PO, NSS 1000 ml @ 999 mls/hr IV. 1511: I reevaluated the patient. I updated him and his on the results. 1530: Nitroglycerin 0.4 mg SL. 1534: Upon reevaluation, the patient is resting comfortably.I discussed my findings with the patient and he understands and agrees with the treatment plan. Based on the patients age, coexisting illnesses, exam and lab findings the decision to treat as an inpatient was made. The patient remained stable while under my care. The patient will be evaluated for further management. 1559: I reviewed the patient's case with Dr. Lorenzo [facility] - hospitalist. He will evaluate the patient for further management. Medical Decision Differential diagnoses includes but is not limited to acute coronary syndrome, myocardial infarction, pericarditis, pulmonary embolus, aortic dissection, pneumonia, pneumothorax, musculoskeletal, shingles, esophageal. Patient is a 56-year-old male who presents the ER for precordial chest pain. One is a pressure and the other is a pleuritic pain. The pressure started earlier today. His pleuritic pain started last night and has progressed through today. He does have pain in the right leg. He does have a history of previous blood clots and is on Coumadin. He failed treatment with xlerto. EKG was nondiagnostic. CBC along with BMP, LFTs and troponin were negative. INR was therapeutic at 2.5. He notes his last INR check was low. Consequently CT PE was performed and duplex of the lower extremities. CT PE was negative. Duplex shows improvement of his clots in the left lower extremity. He was given aspirin. He was given fentanyl and nitroglycerin for his chest pain. He was admitted to internal medicine for a chest pain rule out with improvement of his PEs. Consults Time Called: 1540 Consulting Physician: JAMIE Akbar - hospitalist Returned Call: [phone] I reviewed the patient's case with him. He will evaluate the patient for further management. Impression Primary Impression: Precordial chest pain Additional Impression: Chronic deep vein thrombosis (DVT) Scribe Attestation The scribe's documentation has been prepared under my direction and personally reviewed by me in its entirety. I confirm that the note above accurately reflects all work, treatment, procedures, and medical decision making performed by me. Departure Information Dispostion Being Evaluated By Hospitalist Referrals No Doctor, Assigned (PCP) Patient Instructions [facility] Problem Qualifiers Additional Impression: Chronic deep vein thrombosis (DVT) DVT location: lower extremity Affected thrombotic vein of extremity: unspecified vein of extremity Laterality: left Qualified Codes: I82.502 - Chronic embolism and thrombosis of unspecified deep veins of left lower extremity
[2017-01-28] MEDS ORDERED: IV FLUIDS COMPLETED PRN (18:15)
[2017-01-28] MEDS: HYDROCODONE/ACETAMOPHEN 5/325MG TAB PO PRN (18:39)
[2017-01-28 18:52] VITALS: BP 154/88; PULSE 68; TEMP 36.5; O2SAT 98; Ht 184.2 cm; Wt 85.6 kg
[2017-01-28] MEDS: WARFARIN SOD 10 MG TAB PO SCH (19:32)
[2017-01-28 19:46] VITALS: BP 154/88; PULSE 68; TEMP 36.5; O2SAT 98
[2017-01-29] VITALS (10 sets, daily range): BP systolic 125–174; BP diastolic 77–92; PULSE 59–107; TEMP 36.4–36.9; O2SAT 94–97
[2017-01-29] MEDS ORDERED: COLCHICINE 0.6 MG TAB PO SCH
[2017-01-29] MEDS: HYDROCODONE/ACETAMOPHEN 5/325MG TAB PO PRN (05:43)
[2017-01-29 05:47] LABS: BASO % 0.7 %; BASO ABS # 0.04 K/uL (0-0.2); COMPLETE YES; EOS % 4.6 %; HEMATOCRIT 40.4 % (42-52); IG% 0.4 %; LYMPH % 33.3 %; LYMPH ABS # 1.83 K/uL (1.2-3.4); MEAN CELL VOLUME 94.4 fL (80-100); MEAN CORPUSCULAR HGB CONC 33.9 g/dl (32-36); MEAN PLATELET VOLUME 10.9 fL (7.4-10.4); MONO % 14.2 %; NEUT % 46.8 %; PLATELET COUNT 151 K/uL (130-400); RED BLOOD COUNT 4.28 M/uL (4.7-6.1); WHITE BLOOD COUNT 5.49 K/uL (4.8-10.8)
[2017-01-29 05:53] LABS: INR 2.2 (0.9-1.1); PROTHROMBIN TIME (PATIENT) 24.8 SECONDS (9.0-12.0)
[2017-01-29 06:05] LABS: BUN/CREATININE RATIO 15.4 (10-20); CALCIUM 8.4 mg/dl (8.5-10.1); CREATININE 1.2 mg/dl (0.60-1.40)
[2017-01-29] MEDS ORDERED: CHOLECALCIFEROL 1000 INTER.UNIT TAB PO SCH (09:00)
[2017-01-29] MEDS ORDERED: LIDODERM (LIDOCAINE) PATCH 5% TD SCH (09:00)
[2017-01-29] MEDS ORDERED: ASPIRIN 81 MG ECTAB PO SCH (09:00)
[2017-01-29] MEDS ORDERED: MULTIVITAMIN TAB PO SCH (09:00)
[2017-01-29] MEDS ORDERED: PERFLUTREN LIPID MICROSPHERE (DEFINITY) IV ONE (10:24)
[2017-01-29] MEDS ORDERED: KETOROLAC TROMETHAMINE 30 MG/ML VIAL IV STA (14:47)
--- NOTE | 2017-01-29 14:51 | ECHOCARDIOGRAM REPORT ---
*NOTICE TO RECEIVING DEMOCRAT AGENCY This information is strictly Confidential and protected under [place] law. [place] law prohibits you from making any further disclosure of this information unless further disclosure is expressly permitted by the written consent of the person to whom it pertains or is authorized by law. A general authorization for the release of medical or other information is not sufficient for this purpose. Hospital accepts no responsibility if the information is made available to any other person, INCLUDING THE PATIENT. Interpretation Summary * Name: LOPEZ DODSON Study Date: 01/29/2017 10:10 AM BP: 129/77 mmHg * Patient Location: [facility]\S\N288\S\2 HR: 69 * : 1960 (M/d/yyyy) Gender: Male Height: 72 in * Age: 56 yrs Ethnicity: [place] Weight: 191 lb * Ordering Physician: Lakesha Mays. * Performed By: Ora Dunham * * Reason For Study: CHEST PAIN, H/O OF PE * BSA: 2.1 m2 * Normal biventricular systolic function. * Mild concentric left ventricular hypertrophy. * Normal chamber dimensions. * No significant valvular abnormalities. Procedure Details * A complete two-dimensional transthoracic echocardiogram was performed (2D, M-mode, Doppler and color flow Doppler). * The study was technically difficult. * A contrast injection of Definity was performed to improve assessment of LV function. * Contrast was injected into an intravenous site in the left arm. * One vial of Definity ultrasound contrast was diluted in normal saline to a total volume of 10 ml. A total of '3' ml of solution was administered during imaging. * Lot # [id number] of Definity utilized for procedure. * Expiration date 02/01. * The attending nurse who injected the contrast agent was RUBIN RODRIGUEZ RN. Left Ventricle * The left ventricle is normal in size. * There is mild concentric left ventricular hypertrophy. * Ejection Fraction = 65-70%. * Left ventricular systolic function is normal. * The left ventricular wall motion is normal. Right Ventricle * The right ventricle is normal in size and function. * The right ventricular systolic function is normal as assessed by tricuspid annular plane systolic excursion (TAPSE) (normal >1.5 cm). Atria * The left atrial size is normal. * Right atrial size is normal. * No ASD detected; PFO is not assessed. Mitral Valve * The mitral valve is normal. * There is no mitral valve stenosis. * There is no mitral regurgitation noted. Tricuspid Valve * The tricuspid valve is not well visualized, but is grossly normal. * Tricuspid stenosis is absent. * No tricuspid regurgitation. Aortic Valve * The aortic valve is trileaflet. * The aortic valve opens well. * Aortic stenosis is absent. * No aortic regurgitation is present. Pulmonic Valve * The pulmonic valve is not well seen, but is grossly normal. * There is no pulmonic valvular stenosis. * There is no pulmonic valvular regurgitation. Great Vessels * The aortic root is normal size. Pericardium/Pleural * There is no pericardial effusion. Great Vessels * Normal inferior vena cava diameter and respiratory variation suggests normal central venous pressure. MMode 2D Measurements and Calculations IVSd 1.3 cm IVSs 1.7 cm LVIDd 4.1 cm LVIDs 2.4 cm LVPWd 1.4 cm LVPWs 1.3 cm IVS/LVPW 0.93 FS 40.9 % EDV(Teich) 74.9 ml ESV(Teich) 20.8 ml EF(Teich) 72.2 % EDV(cubed) 69.7 ml ESV(cubed) 14.4 ml EF(cubed) 79.4 % % IVS thick 32.0 % % LVPW thick -4.26 % LV mass(C)d 207.6 grams LV mass(C)dI 99.3 grams/m\S\2 LV mass(C)s 127.3 grams LV mass(C)sI 60.9 grams/m\S\2 CO(Teich) 3.3 l/min CI(Teich) 1.6 l/min/m\S\2 SV(Teich) 54.0 ml SI(Teich) 25.9 ml/m\S\2 CO(cubed) 3.4 l/min CI(cubed) 1.6 l/min/m\S\2 SV(cubed) 55.3 ml SI(cubed) 26.5 ml/m\S\2 Ao root diam 3.4 cm Ao root area 9.1 cm\S\2 ACS 2.0 cm LA dimension 3.4 cm asc Aorta Diam 3.6 cm LA/Ao 0.98 LVOT diam 2.1 cm LVOT area 3.3 cm\S\2 LVAd ap4 37.6 cm\S\2 LVLd ap4 9.6 cm EDV(MOD-sp4) 119.0 ml LVAs ap4 17.8 cm\S\2 LVLs ap4 7.7 cm ESV(MOD-sp4) 35.0 ml EF(MOD-sp4) 70.6 % LVAd ap2 31.8 cm\S\2 LVLd ap2 9.0 cm EDV(MOD-sp2) 92.0 ml LVAs ap2 15.5 cm\S\2 LVLs ap2 6.8 cm ESV(MOD-sp2) 29.0 ml EF(MOD-sp2) 68.5 % CO(MOD-sp4) 5.1 l/min CI(MOD-sp4) 2.5 l/min/m\S\2 SV(MOD-sp4) 84.0 ml SI(MOD-sp4) 40.2 ml/m\S\2 CO(MOD-sp2) 3.8 l/min CI(MOD-sp2) 1.8 l/min/m\S\2 SV(MOD-sp2) 63.0 ml SI(MOD-sp2) 30.2 ml/m\S\2 Doppler Measurements and Calculations MV E max nuzhat 74.5 cm/sec MV A max nuzhat 73.5 cm/sec MV E/A 1.0 MV dec time 0.31 sec Ao V2 max 107.6 cm/sec Ao max PG 4.6 mmHg Ao max PG (full) 0.54 mmHg VALENTINO(V,A) 3.1 cm\S\2 VALENTINO(V,D) 3.1 cm\S\2 LV V1 max PG 4.1 mmHg LV V1 max 101.2 cm/sec PA V2 max 72.6 cm/sec PA max PG 2.1 mmHg
[2017-01-29] MEDS: WARFARIN SOD 10 MG TAB PO SCH (15:10)
[2017-01-29] MEDS ORDERED: COLCHICINE 0.6 MG TAB PO ONE (18:00)
[2017-01-29] MEDS ORDERED: PANT40TA PO (18:17)
[2017-01-29] MEDS ORDERED: IBUP-1449 PO (18:17)
[2017-01-29] MEDS ORDERED: COLC0.6T54 PO (18:17)
--- NOTE | 2017-01-29 18:33 | Discharge Instructions ---
Discharge Instructions Date of Service Jan 29, 2017. Admission Reason for Admission: Chest Pain Discharge Discharge Diagnosis / Problem: chest pain - no evidence of heart attack, PE, pneumonia Discharge Goals Goal(s): Learn about illness, Diagnostic testing, Therapeutic intervention Activity Recommendations Activity Limitations: as noted below Recommend the following - 1. no heavy lifting over 15 pounds (think of a bowling ball and its weight) 2. no heavy exertional activity such as working in the yard, going to the gym, heavy household jobs/duties 3. light walking is fine as long as it doesn't cause pain, discomfort, or difficulty breathing 4. sleep upright in your bed (past 30 degrees or so) to avoid making your pain worse 5. Dr. Carey and/or cardiology will tell you when it is ok to resume normal activities . Instructions / Follow-Up Instructions / Follow-Up From Dr. De Leon - 1. chest discomfort - * your symptoms as well as the response to the intravenous anti-inflammatory medication suggest either a musculoskeletal cause of your pain OR pericarditis * pericarditis is inflammation of the lining of the heart (also known as pericardium) * the positional nature of your pain (that is, the pain was worse with lying flat) is typical of pericarditis 2. treatment of suspected pericarditis - * take colchicine 0.6mg twice daily starting TOMORROW morning, 01/30/17 * 2 doses have been given to you by Jan Shah for tomorrow * a full prescription has been sent to [facility]; please pick this up on Tuesday and start Tuesday AM * take bzrz-dld-xoxmaji motrin (ibuprofen) 400mg three times a day * most eghq-gjb-ffkusxe ibuprofen comes in 200mg tablets * thus, take 2 tablets with breakfast, 2 tablets with lunch, and 2 tablets with dinner * recommend that you take 400mg of ibuprofen at bedtime tonight with a snack * the colchicine will likely be recommended for 2-3 months, perhaps less * the motrin (ibuprofen) will likely be for up to 14 days * do not drink any alcohol or take any other anti-inflammatories (aspirin, aleve , naprosyn, etc) while on the above medications. * caution with caffeine (soda, tea, coffee, etc) while on the motrin. Please limit your consumption. 3. the cause of pericarditis is unknown. Many cases are either due to a virus OR are idiopathic (we don't have a specific cause). It does not appear you have symptoms of other systemic causes of this condition (lupus, rheumatoid arthritis, thyroid disease, etc). Dr. Carey may recommend additional blood work for the suspected pericarditis. 4. please take protonix (pantoprazole) 40mg once daily in the morning to protect your stomach against irritation and GI bleeding from the motrin and coumadin. Prescription sent to [facility]. Start that on Tuesday. Recommend that on Tuesday (tomorrow) take "OTC prilosec" or nexium. I would purchase that tonight on your way home from the hospital to take in the morning. 5. The ibuprofen (motrin) can interact with your coumadin. Dr. Grant recommends you see her in the coumadin clinic THIS 01/31/17, at 830am for INR check and further instructions. 6. Please see Dr. Carey THIS WEEK - probably Tuesday or Tuesday - for follow-up. He may elect to send you to a art therapy certified supervisor for monitoring. 7. Return to [facility] with worsening pain/chest discomfort not responding to your medications, difficulty breathing, blood in the stool/urine, nosebleeds, significan bruising, etc. Current Hospital Diet Patient's current hospital diet: Regular Diet Discharge Diet Recommended Diet: Regular Diet Procedures Procedures Performed: echocardiogram - normal heart function, normal valves, no fluid in the pericardial sac CAT scan of the chest - NO pulmonary emboli, NO pneumonia, NO tumors/masses, NO fluid, NO fluid in the sac (pericardium) of the heart cardiac enzymes negative x 3 sets (blood work for heart attack) Pending Studies Studies pending at discharge: no Medical Emergencies . Who to Call and When: Medical Emergencies: If at any time you feel your situation is an emergency, please call 911 immediately. . Non-Emergent Contact Non-Emergency issues call your: Primary Care Provider Call Non-Emergent contact if: temperature is above 100.5, your pain is not controlled, your pain is worsening, your pain is unusual for you, your pain is concerning you, you have any medication questions . . "Provider Documentation" section prepared by Samuel R. Siuta. VTE Core Measure Inpt VTE Proph given/why not?: Warfarin (Coumadin)
[2017-01-30] MEDS ORDERED: COLCHICINE 0.6 MG TAB PO SCH ×2 (09:00)
--- NOTE | 2017-01-31 05:47 | Discharge Summary ---
Discharge Summary Date of Service Jan 31, 2017. Discharge Summary Admission Date: Jan 28, 2017 at 17:47 Discharge Date: Jan 29, 2017 Discharge Disposition: Home Principal Diagnosis: suspected pericarditis Problems/Secondary Diagnoses: 1. h/o recurrent VTE / PE 2. LLE DVTs 3. prostate cancer Procedures: 1. Bilateral lower extremity venous dopplers: IMPRESSION: 1. No evidence of right lower extremity DVT 2. Persistent thrombus within the left popliteal vein, posterior tibial vein, and peroneal vein. There has been slight improvement when compared the prior study. 2. CTA chest - negative for acute PE, pneumonia, edema, pericardial or pleural effusions. 3. echocardiogram - normal EF, normal valve function, no pericardial effusion. Medication Reconciliation New Medications: Colchicine (Colchicine) 0.6 Mg Tab 0.6 MG PO BID for 30 Days, #60 TAB 1 Refill Ibuprofen Tab (Motrin) 400 Mg Tab 1 TAB PO TID for 14 Days, #42 TAB 0 Refills take with food Pantoprazole Sodium (Protonix) 40 Mg Tab 1 TAB PO QAM for 30 Days, #30 TAB 0 Refills Continued Medications: Baclofen (Lioresal) 10 Mg Tab 10 MG PO HS PRN for RN, TAB Cholecalciferol (Vitamin D3) 1,000 Unit Tab 5 TAB PO DAILY for 90 Days, #450 TAB 3 Refills Cyanocobalamin (B-12) 250 Mcg Tab 500 MCG PO QAM Awmorvqqpen-Lekufqicbtx-Hs Cho (Glucosamine Chondroitin &) 1 Tab Tab 1 TAB PO QAM Hydrocodone/Acetaminophen 5MG/325MG ([place] 5MG/325MG) Tab 1 TABLET PO Q6H PRN for Pain, TAB PRN PAIN Hydrocortisone Acetate (Anucort-Hc) 25 Mg Supp 1 DOSE RE BID PRN for RN Lidocaine (Lidoderm Patch 5%) 1 Ea Tdsy 1 DOSE TOP PRN Metaxalone (Metaxalone) 400 Mg Tab 800 MG PO Q8H PRN for Pain Multivitamin (Multivitamin) Tab 1 TAB PO QAM Warfarin Sod (Jantoven) 5 Mg Tab 10 MG PO 5XWK, TAB Warfarin Sod (Jantoven) 7.5 Mg Tab 7.5 MG PO 2XWK Mon/Wed Discharge Exam Physical Exam: General Appearance: WD/WN, no apparent distress ENT: pharynx normal Neck: no JVD Respiratory/Chest: chest non-tender, lungs clear, normal breath sounds, no respiratory distress, no accessory muscle use Cardiovascular: regular rate, rhythm, no gallop, no murmur, normal peripheral pulses, + pertinent finding (no rub) Abdomen / GI: normal bowel sounds, non tender, soft, no organomegaly Extremities: no pedal edema Neurologic/Psychiatric: alert, oriented x 3 Skin: no rash Lymphatic: no adenopathy (cervical ) Hospital Course HISTORY OF PRESENT ILLNESS: 56yo male with history of newly diagnosed prostate cancer in 2017 and recurrent VTE - currently on coumadin and followed by the [facility] anticoagulation clinic - who presented with fatigue, dyspnea, and lower left-sided chest pain. The patient states that yesterday at work he was feeling extremely tired. His mentioned he looked pale when he came home from work. He went to bed and slept 13 hours with his baseline being 4-5 hours of sleep nightly. Upon waking the patient felt back pain, but took norco and the pain improved. He subsequently went out to rake leaves and became extremely SOB acutely and felt a band-like squeezing along the high epigastrium. He had associated air hunger. His SOB did not resolve upon sitting and chest pain became more localized to the left side; thus, the patient decided to seek medical care. At time of hospitalist admission the patient no longer had dyspnea but still had left sided chest pain (localized without radiation to the back, jaw, neck, or arm). The pain felt deep in the chest. Pain was rated 6/10, was modestly pleuritic, and was seemingly worse with laying down supine. He had no associated nausea or vomiting. Patient had been diaphoretic, but denied fevers or chills. He admitted he did feel lightheaded. No presyncope/LOC/falls. Patient says the pain did not feel like previous PEs. CTA chest in the ER did NOT show any new PEs or other intra-thoracic pathology. HOSPITAL COURSE: The patient's left-sided chest pain remained continuous during his 24-hour stay. Three sets of cardiac enzymes were normal, telemetry showed no dysrhythmia, and serial EKGs remained normal with no ST segment changes. He had no GI symptoms at any point. It was suspected his symptoms were due to either a musculoskeletal etiology OR pericarditis. The latter was particularly suspected after he continued to report worsening of symptoms with laying supine and a pleuritic component to his pain. He did NOT have any reproducibility of his symptoms with palpation of the chest wall. The patient was given IV toradol with excellent response. Despite the normal sed rate, normal echo, and normal EKGs acute pericarditis was still suspected. Thus, at discharge he will take the following - * motrin 400mg TID for at least 2 weeks * colchicine 0.6mg BID, likely for 2-3 months His plan of care was discussed with Dr. Mele Roberts, director of the coumadin clinic, who will follow his INR carefully in light of the motrin use in the setting of the coumadin. INR at discharge was 2.2. Due to lack of symptoms to suggest an autoimmune process, thyroid disease, etc his pericarditis is likely either viral induced or idiopathic. Will defer to his outpatient providers whether to pursue any other work-up. He can be referred to cardiology as needed for the suspected pericarditis. Total Time Spent: Greater than 30 minutes This includes examination of the patient, discharge planning, medication reconciliation, and communication with other providers. Discharge Instructions Please refer to the electronic Patient Visit Report (Discharge Instructions) for additional information. Follow-Up 1. see Dr. Mele Roberts in the anticoagulation clinic on 01/31/17, at [address] Tripp Carey within 3-5 days of discharge Additional Copies To Tripp Carey M.D.; Alize Roberts M.D., PHD
[2017-01-31] MEDS ORDERED: WARFARIN SOD 7.5 MG TAB PO SCH (16:00)
[2017-02-10] MEDS ORDERED: IBUP-1459 PO (09:13)
[2017-04-18] MEDS ORDERED: TRAZ50TA35 PO (16:03)
[2017-04-18] MEDS ORDERED: BUSP-8 PO (16:03)
[2017-04-18] MEDS ORDERED: NALT50TA5 PO (16:03)
[2017-04-21] MEDS ORDERED: ESCI10TA17 PO (07:57)
[2017-04-25] MEDS ORDERED: HYDR-4383 PO (08:56)
[2017-06-16] MEDS ORDERED: CHOL1CAP26 PO (11:52)
[2017-06-16] MEDS ORDERED: OXGN (11:53)
[2017-06-28] MEDS ORDERED: ENOX80IN SQ (06:06)
[2017-06-30] MEDS ORDERED: HYDR-4383 PO (07:19)
[2017-06-30] MEDS ORDERED: CIPR-255 PO (07:19)
[2017-08-02] MEDS ORDERED: SILD1TAB25 PO (08:51)
== END 2017-01-29 19:22 | disposition home or self-care (01) ==
LOC: ENRESERVDT → ENRESERVTM → C.EDB 12:18 → C.MED 17:47 → EDBEDREQ 17:48
PROVIDERS: ADMIT Hospitalist; ATTEND Internal Medicine
DX: R07.2 Precordial pain (principal); C61 Malignant neoplasm of prostate; Z86.711 Personal history of pulmonary embolism; G47.34 Idiopathic sleep related nonobstructive alveolar hypoventilation; I82.502 Chronic embolism and thrombosis of unspecified deep veins of left lower extremity; Z79.01 Long term (current) use of anticoagulants; Z79.899 Other long term (current) drug therapy

== ENCOUNTER → 2017-03-23 | Outpatient (CLI) | payer BC ==
[~2017-03-23] MED LIST changes: +BUSP-8 PO; +CHOL1CAP26 PO; +CIPR-255 PO; +COLC0.6T54 PO; +ENOX80IN SQ; +ESCI10TA17 PO; +HYDR-4383 PO; +NALT50TA5 PO; +OXGN; +SILD1TAB25 PO; +TRAZ50TA35 PO; -TYL325X PO
--- NOTE | 2017-03-23 10:40 | DIAGNOSTIC IMAGING REPORT ---
ULTRASOUND LEFT VENOUS DOPP LOWER EXT UNILAT CLINICAL HISTORY: I82.409 Deep vein thrombosis (DVT)no latex [id number] COMPARISON STUDY: 01/28/2017 FINDINGS: No thrombus is visualized in the common femoral or superficial femoral veins. There is persistent thrombus within the left popliteal vein, and one of 2 posterior tibial veins. The anterior tibial veins appear patent. No peroneal vein thrombus is visualized. IMPRESSION: Continued slight improvement. Suspected thrombus within the left popliteal vein and one of 2 posterior tibial veins. Electronically signed by: Chase Soliman M.D. 03/23/2017 10:38 AM Dictated Date/Time: 03/23/2017 10:37 AM
== END | disposition home or self-care (01) ==
LOC: C.ULTR 09:40
PROVIDERS: ATTEND Urology
DX: I82.402 Acute embolism and thrombosis of unspecified deep veins of left lower extremity (principal)

== ENCOUNTER → 2017-05-26 | Outpatient (CLI) | payer BC ==
[~2017-05-26] MED LIST changes: -HYDR-5688 PO; -NALT50TA5 PO; -SILD1TAB25 PO
--- NOTE | 2017-05-26 10:31 | DIAGNOSTIC IMAGING REPORT ---
BILATERAL LOWER EXTREMITY VENOUS DOPPLER HISTORY: I82.409 Deep vein thrombosis (DVT)left previous DVT COMPARISON STUDY: Duplex venous ultrasound 03/23/2017. FINDINGS: Small nonocclusive thrombus of the left popliteal vein is again seen. Additionally, there is thrombus in one of the posterior tibial veins. No additional deep venous thrombi are identified. IMPRESSION: Stable exam from comparison study dated 03/23/2017 with nonocclusive left popliteal vein deep venous thrombosis and thrombus within one of the 2 posterior tibial veins. Electronically signed by: Shad Palmer M.D. 05/26/2017 10:29 AM Dictated Date/Time: 05/26/2017 10:26 AM
== END | disposition home or self-care (01) ==
LOC: C.ULTRBC 09:53
PROVIDERS: ATTEND Urology
DX: I82.409 Acute embolism and thrombosis of unspecified deep veins of unspecified lower extremity (principal)

== ENCOUNTER 2017-06-28 05:32 | Inpatient (IN) | payer BC ==
[2017-06-16 11:29] VITALS: BMI 24.0
--- NOTE | 2017-06-16 12:12 | PAT Medication Instructions ---
Service Date Jun 16, 2017. Current Home Medication List Baclofen (Lioresal), 10 MG PO HS PRN for RN Buspirone Hcl (Buspirone Hcl), 10 MG PO TID Cholecalciferol (D3 Ultra Strength), 1 TAB PO QPM Cyanocobalamin (B-12), 500 MCG PO QPM Escitalopram (Lexapro), 10 MG PO QPM Iiewdsovljp-Dwmcvznqeqa-Gi Cho (Glucosamine Chondroitin &), 1 TAB PO QPM Home O2 Therapy (Oxygen), 2 LITERS NA HS Hydrocodone/Acetaminophen ([place] 10/325 Tab), 1 TAB PO TID PRN for Pain Hydrocortisone Acetate (Anucort-Hc), 1 DOSE RE BID PRN for RN Lidocaine (Lidoderm Patch 5%), 1 DOSE TOP PRN Metaxalone (Metaxalone), 800 MG PO TID PRN for Pain Multivitamin (Multivitamin), 1 TAB PO QPM Trazodone Hcl (Trazodone), 50 MG PO HS Warfarin Sod (Jantoven), 10 MG PO 5XWK Warfarin Sod (Jantoven), 7.5 MG PO 2XWK Medication Instructions For Your Scheduled Surgery -Instructions to be given by Coumadin clinic: Warfarin Sod (Jantoven), 10 MG PO 5XWK Warfarin Sod (Jantoven), 7.5 MG PO 2XWK - Hold the following medications starting 06/16/17: Qtciwgrodcv-Jqwxwbemkel-Nx Cho (Glucosamine Chondroitin &), 1 TAB PO QPM - Hold the following medications 24 hours prior to surgery: Hydrocortisone Acetate (Anucort-Hc), 1 DOSE RE BID PRN for RN - Hold the following medications the morning of surgery: Lidocaine (Lidoderm Patch 5%), 1 DOSE TOP PRN Metaxalone (Metaxalone), 800 MG PO TID PRN for Pain - Take the following medications the morning of surgery with a sip of water: Buspirone Hcl (Buspirone Hcl), 10 MG PO TID Hydrocodone/Acetaminophen ([place] 10/325 Tab), 1 TAB PO TID PRN for Pain (if needed up to 4 hours before surgery) - Take the following medications as scheduled the night before surgery: Buspirone Hcl (Buspirone Hcl), 10 MG PO TID Multivitamin (Multivitamin), 1 TAB PO QPM Home O2 Therapy (Oxygen), 2 LITERS NA HS Cholecalciferol (D3 Ultra Strength), 1 TAB PO QPM Cyanocobalamin (B-12), 500 MCG PO QPM Escitalopram (Lexapro), 10 MG PO QPM Baclofen (Lioresal), 10 MG PO HS PRN for RN (if needed) Trazodone Hcl (Trazodone), 50 MG PO HS Hydrocodone/Acetaminophen ([place] 10/325 Tab), 1 TAB PO TID PRN for Pain (if needed) If you have any questions please call us at [phone] or [phone] or [phone]
[2017-06-16 12:47] LABS: BASO % 0.6 %; BASO ABS # 0.03 K/uL (0-0.2); COMPLETE YES; EOS % 1.5 %; HEMATOCRIT 41.3 % (42-52); LYMPH % 34.8 %; LYMPH ABS # 1.63 K/uL (1.2-3.4); MEAN CELL VOLUME 96.3 fL (80-100); MEAN CORPUSCULAR HEMOGLOBIN 31.7 pg (25-34); MEAN CORPUSCULAR HGB CONC 32.9 g/dl (32-36); MEAN PLATELET VOLUME 10.9 fL (7.4-10.4); MONO % 7.7 %; NEUT % 55.4 %; PLATELET COUNT 177 K/uL (130-400); RED BLOOD COUNT 4.29 M/uL (4.7-6.1); WHITE BLOOD COUNT 4.69 K/uL (4.8-10.8)
[2017-06-16 12:54] LABS: BUN/CREATININE RATIO 9.5 (10-20); CALCIUM 9.2 mg/dl (8.5-10.1); CREATININE 1.2 mg/dl (0.60-1.40); POTASSIUM 4.5 mmol/L (3.5-5.1)
[2017-06-16 13:13] LABS: URINE APPEARANCE CLEAR (CLEAR); URINE BILIRUBIN NEG (NEG); URINE COLOR YELLOW; URINE EPITHELIAL CELL AUTO 0-5 /lpf (0-5); URINE NITRITE NEG (NEG); URINE PH 7.5 (4.5-7.5); URINE SPECIFIC GRAVITY 1.013 (1.000-1.030); UROBILINOGEN NEG (NEG)
[2017-06-16 13:28] LABS: MANUAL MICROSCOPIC REQUIRED? NO; REVIEW REQ? NO
[2017-06-28] VITALS (10 sets, daily range): BP systolic 95–115; BP diastolic 55–75; PULSE 56–85; TEMP 36.4–37.4; O2SAT 92–97; Ht 182.9 cm; Wt 79.8 kg
[~2017-06-28] VITALS: Ht 182.9 cm; Wt 79.8 kg
[~2017-06-28 05:32] MED LIST changes: -CHOL1000 PO; -CIPR-255 PO; -COLC0.6T54 PO; -ENOX80IN SQ
--- NOTE | 2017-06-28 05:55 | Surgery Consultation ---
Consultation Date of Service Jun 28, 2017. Chief Complaint Hx of significant DVT and PE History of Present Illness The patient is a 57 year old male who had a PE in 2013. After coming off coumadin, he developed a superficial phlebitis and placed back on coumadin. He came off in 2015 and was diagnosed with prostate cancer in Oct 2015. He was found to have multiple DVT's at that time. Placed on Xarelto. He developed a PE on Xarelto and was switched to coumadin. Allergies Coded Allergies: No Known Allergies (Unverified , 06/28/17) Home Medications Scheduled Buspirone Hcl (Buspirone Hcl), 10 MG PO TID Cholecalciferol (D3 Ultra Strength), 1 TAB PO QPM Cyanocobalamin (B-12), 500 MCG PO QPM Enoxaparin (Lovenox), 80 MG SQ Q12H Escitalopram (Lexapro), 10 MG PO QPM Wtpgnqmzboj-Tacexcmbnzo-Sj Cho (Glucosamine Chondroitin &), 1 TAB PO QPM Home O2 Therapy (Oxygen), 2 LITERS NA HS Lidocaine (Lidoderm Patch 5%), 1 DOSE TOP PRN Multivitamin (Multivitamin), 1 TAB PO QPM Trazodone Hcl (Trazodone), 50 MG PO HS Warfarin Sod (Jantoven), 10 MG PO 5XWK Warfarin Sod (Jantoven), 7.5 MG PO 2XWK Scheduled PRN Baclofen (Lioresal), 10 MG PO HS PRN for RN Hydrocodone/Acetaminophen ([place] 10/325 Tab), 1 TAB PO TID PRN for Pain Hydrocortisone Acetate (Anucort-Hc), 1 DOSE RE BID PRN for RN Metaxalone (Metaxalone), 800 MG PO TID PRN for Pain Problem List Medical Problems: (1) Acute Venous Embolism & Thrombosis Deep Vessels Proximal Le (2) Chest pain (3) Idiopath Sleep Related Non-Obstruc Alveolar Hypoventilation (4) Pain In Limb (5) Prostate cancer Surgical / Medical History Hx Cardiac Surgery: No Hx Abdominal Surgery: No Hx Cancer Surgery: No Hx Thoracic Surgery: No Hx Orthopedic: No Hx Urinary Tract Surgery: No Past Medical/Surgical History: Cancer, Pulmonary Emboli, Thrombophlebitis Family History Cancer BROTHER, Onset:50's - 60 (bladder cancer) MOTHER, Onset:60 years & older (uterine and stomach cancer) Diabetes mellitus SON (Type 1 DM) Social History Smoking Status: Never Smoker Hx Tobacco Use In Past Year?: No Hx Alcohol Use - Type & Amnt: No Hx Substance Use -Type & Amnt: No Review of Systems Constitutional: No chills, No diaphoresis, No fever, No malaise, No weakness, No weight gain, No weight loss, No sweats, No fatigue, No problem reported Respiratory: No cough, No cyanosis, No HEADLEY, No hemoptysis, No orthopnea, No PND , No short of breath, No sputum production, No stridor, No wheezing, No dyspnea , No problem reported Cardiovascular: No chest pain, No chest tightness, No chest pressure, No palpitations, No syncope, No diaphoresis, No edema, No intermittent claudication , No orthopnea, No cyanosis, No mumur, No lightheadedness, No paroxysmal nocturnal dyspnea, No problem reported Gastrointestinal: No abdominal pain, No constipation, No diarrhea, No nausea, No vomiting, No anorexia, No appetite changes, No belching, No flatulence, No food intolerance, No hematemesis, No hemorrhoids, No hematochezia, No stool changes, No heartburn, No indigestion, No dysphagia, No rectal bleeding, No problem reported Musculoskeletal: No back pain, No gout, No joint pain, No joint swelling, No muscle pain, No muscle stiffness, No muscle weakness, No neck pain, No problem reported Psychiatric: No anxiety, No alcohol abuse, No auditory hallucinations, No depression, No drug abuse, No homicidal ideation, No mood changes, No suicidal ideation, No visual hallucinations, No problem reported Physical Exam Constitutional: General Apperance: heathly-appearing, well-nourished, well-developed Level of Distress: NAD Ambulation: ambulating normally Psychiatric: Mental Status: active & alert, normal mood, normal affect Orientation: oriented except where noted, to time, to place, to person Memory: recent memory normal, remote memory normal Lungs: Auscultation: breath sounds normal Cardiovascular: Heart Auscultation: RRR Abdomen: Inspection & Palpation: soft Musculoskeletal: normal, normal strength (5/5 throughout), normal tone Neurologic: Cranial Nerves: grossly intact Sensation: grossly intact Assessment and Plan Imp: Multiple occurrences of DVT and PE Prostate cancer Plan: Patient is to have an IVC filter placed prior to prostate surgery today. I have discussed the risks options and benefits of the procedure with the patient. The patient understands the risks options and benefits and agrees to the procedure.
[2017-06-28] MEDS ORDERED: HEPARIN SOD 5000 UNIT/0.5 ML CARP SQ SCH (06:00)
[2017-06-28] MEDS ORDERED: CEFAZOLIN 1000MG/55 ML D5W IV SCH (06:00)
[2017-06-28] MEDS ORDERED: SODIUM CHLORIDE 0.9% 1000ML IV SCH (06:00)
[2017-06-28] MEDS ORDERED: LACTATED RINGER'S 1000ML 1,000 ML IV SCH ×2 (06:00)
[2017-06-28] MEDS ORDERED: ENOX80IN SQ ×2 (06:06)
[2017-06-28 06:22] LABS: CREATININE 1.1 mg/dl (0.60-1.40)
[2017-06-28] MEDS ORDERED: BUPIVACAINE 0.5 % 5 MG/1 ML MPF 30ML VIAL ONE (06:56)
[2017-06-28] MEDS ORDERED: BELLADONNA/OPIUM SUPP 60 MG SUPP PR ONE ×2 (07:00→10:50)
[2017-06-28] MEDS ORDERED: ROCURONIUM BROMIDE 10 MG/ML 5 ML VIAL IV ONE ×2 (07:01→09:54)
[2017-06-28] MEDS ORDERED: LIDOCAINE HCL 2% 2 ML VIAL (20MG/ML) ONE (07:01)
[2017-06-28] MEDS ORDERED: FENTANYL CITRATE INJ 50 MCG/1 ML 2 ML VIAL ONE ×3 (07:01→11:10)
[2017-06-28] MEDS ORDERED: PROPOFOL IV EMULSION 10 MG/ML 20 ML VIAL IV ONE (07:01)
--- NOTE | 2017-06-28 07:14 | Procedure Note ---
Pre-Mod Sedation Assessment General Date of Moderate Sedation: Jun 28, 2017. Vital Signs: Vital Signs Past 12 Hours Date Time Temp Pulse Resp B/P (MAP) Pulse Ox O2 Delivery O2 Flow Rate FiO2 06/28/17 06:10 36.9 56 18 114/75 (88) 97 Room Air Pre-Sedation Airway Assessment Oral Cavity: Capped Teeth Smoking Status: Never Smoker Mallampati Classification: Class I ASA Classification: Class II Notes The planned sedation has been discussed with the patient and consent obtained. I have identified the patient, determined the appropriateness of sedation and have assessed the patient immediately prior to the procedure. All medicine(s) and interventions are by my order.
--- NOTE | 2017-06-28 07:19 | History & Physical Bridge Note ---
H&P Re-Evaluation Bridge Note: I have examined the patient, reviewed the History & Physical and in the interval since the performance of the History & Physical I have noted the following changes of clinical significance: No changes noted
[2017-06-28] MEDS ORDERED: MIDAZOLAM HCL 1 MG/ML 2ML VIAL ONE (07:23)
[2017-06-28] MEDS ORDERED: NURSING VERBAL MED ORDER ONE (07:25)
[2017-06-28] MEDS ORDERED: CEFAZOLIN IV 2,000 MG/60 ML D5W IV ONE (07:27)
[2017-06-28] MEDS ORDERED: MIDAZOLAM HCL 1 MG/ML 2ML VIAL IV ONE (07:44)
[2017-06-28] MEDS ORDERED: FENTANYL CITRATE INJ 50 MCG/1 ML 2 ML VIAL IV ONE (07:45)
[2017-06-28] MEDS ORDERED: LIDOCAINE HCL 1% 20 ML VIAL INJ ONE (07:46)
[2017-06-28] MEDS ORDERED: IODIXANOL (VISIPAQUE) 270 MG/ML 50ML IV ONE (07:57)
[2017-06-28] MEDS ORDERED: PHENYLEPHRINE 100MCG/ML 5ML SYR IV PRN (08:00)
[2017-06-28] MEDS ORDERED: MoRPHine SULFATE 10 MG/ML CARP/VIAL IV PRN (08:00)
[2017-06-28] MEDS ORDERED: EpHEDrine SULFATE INJ 50 MG/ML AMP IV PRN (08:00)
[2017-06-28] MEDS ORDERED: ONDANSETRON INJ 2 MG/ML 2 ML VIAL IV PRN ×2 (08:00→11:30)
[2017-06-28] MEDS ORDERED: NALOXONE HCL 0.4 MG/1 ML VIAL/CARP IV PRN (08:00)
[2017-06-28] MEDS ORDERED: LABETALOL HCL IV 5 MG/ML 20ML IV PRN (08:00)
[2017-06-28] MEDS ORDERED: MEPERIDINE HCL 25 MG/ML CARP IV PRN (08:00)
[2017-06-28] MEDS ORDERED: ATROPINE SULFATE 0.1 MG/ML 5ML SYR IV PRN (08:00)
[2017-06-28] MEDS ORDERED: FLUMAZENIL 0.1 MG/1 ML 10 ML VIAL IV PRN (08:00)
--- NOTE | 2017-06-28 08:06 | [facility] Operative Report ---
Operative Report Operative Date Jun 28, 2017. Pre-Operative Diagnosis history of pulmonary emboli and deep vein thrombosis, hypercoaguable Post-Operative Diagnosis same Procedure(s) Performed Insertion Of Vena Cava Filter, Right Jugular Approach, Ultrasound Localization Of Right Internal Jugular Vein, Fluoroscopy For Positioning, Moderate Concious Sedation [address] Franklin [employer] Operations Specialist Surgeon(s) none Estimated Blood Loss 2 ml Findings infra renal position of filter, upright. No cava clot Specimens none Anesthesia Local with sedation Complication(s) None Disposition Indications This patient's a 57-year-old male with a history of DVT and pulmonary emboli. The last occurrence was while he was anticoagulated with Xarelto. He was switched back to Coumadin at that time. He had been diagnosed with prostate carcinoma. He is now here for a robotic prostatectomy. We recommended a temporary filter be placed for protection from having further pulmonary emboli while he is off anticoagulation. He understood the risks options and benefits and agreed to go ahead with this procedure. Description of Procedure The patient was brought to the angio suite and placed in the supine position. The right side of the neck was prepped and draped in the usual fashion. The right internal jugular vein was located with ultrasound. It was patent, compressed easily, and had no filling defects. The vein was then punctured under ultrasound visualization. A guidewire was then passed centrally into the inferior vena cava under fluoroscopic guidance. The puncture site was then dilated and the filter sheath inserted. It was passed to the infra renal vena cava. A venacavagram was done which showed no cava clot and an acceptable size. The renal veins were identified. The filter was then passed through the sheath and deployed in the infra renal vena cava in an upright position. Satisfied with the positioning of the filter, the sheath was removed. Pressure was applied to the puncture site. Adequate hemostatsis was obtained and a sterile dressing was applied. The patient left the angio suite in good condition and tolerated the procedure well. I attest to the content of the Intraoperative Record and any orders documented therein. Any exceptions are noted below.
--- NOTE | 2017-06-28 08:06 | Procedure Note ---
Post-Moderate Sedation Plan General Date of Moderate Sedation Jun 28, 2017. Vital Signs: Vital Signs Past 12 Hours Date Time Temp Pulse Resp B/P (MAP) Pulse Ox O2 Delivery O2 Flow Rate FiO2 06/28/17 07:32 36.9 56 18 114/75 97 Room Air 06/28/17 06:10 36.9 56 18 114/75 (88) 97 Room Air Review - Discharge Plan Post Moderate Sedation Plan: On clinical assessment, the patient appears to have tolerated the conscious sedation without complications. Patient is recovering as anticipated. Patient will continue to be monitored by nursing and may be discharged when conscious sedation discharge criteria are met.
[2017-06-28] MEDS ORDERED: DEXAMETHASONE SOD INJ 4 MG/ML VIAL ONE (09:54)
[2017-06-28] MEDS ORDERED: GLYCOPYRROLATE INJ 0.2 MG/ML VIAL ONE (09:54)
[2017-06-28] MEDS ORDERED: NEOSTIGMINE METHYLSULFATE 5 MG/5 ML SYR ONE (09:54)
[2017-06-28] MEDS ORDERED: ONDANSETRON INJ 2 MG/ML 2 ML VIAL ONE ×2 (09:54)
[2017-06-28] MEDS ORDERED: FLOSEAL HEMOSTATIC MATRIX 10ML TOP ONE (10:54)
[2017-06-28] MEDS ORDERED: SURGICEL ABSORB HEMOSTAT 2IN X 14IN TOP ONE (10:55)
[2017-06-28] MEDS ORDERED: HYDROCODONE/ACETAMI 10/325 TAB PO PRN (11:30)
[2017-06-28] MEDS ORDERED: METAXALONE 800 MG TAB PO PRN (11:30)
[2017-06-28] MEDS ORDERED: MoRPHine SULFATE 2 MG/ML CARP IV PRN (11:30)
[2017-06-28] MEDS ORDERED: ACETAMINOPHEN 325 MG TAB PO PRN (11:30)
[2017-06-28] MEDS ORDERED: BACLOFEN 10 MG TAB PO PRN (11:30)
--- NOTE | 2017-06-28 11:34 | [facility] Post Operative Brief Note ---
Immediate Operative Summary Operative Date Jun 28, 2017. Pre-Operative Diagnosis Prostate cancer Post-Operative Diagnosis Prostate Cancer Procedure(s) Performed Robotic Assisted Laparoscopic Prostatectomy Surgeon Dr. Salo Leonard [employer] Engine Optimization Strategist Surgeon(s) Patrick Robledo PA-C Estimated Blood Loss 200 mL Findings As per dictation Specimens Permanent specimens A: Prostate and seminal vesicles B: Periprostatic fat C: Right lateral margin Drains ZACHARY; chaney Anesthesia gen Complication(s) None Disposition Recovery Room / PACU (stable)
[2017-06-28 12:07] LABS: BASO % 0.1 %; BASO ABS # 0.01 K/uL (0-0.2); EOS % 0.3 %; HEMATOCRIT 36.5 % (42-52); IG% 0.2 %; LYMPH % 8.6 %; LYMPH ABS # 0.93 K/uL (1.2-3.4); MEAN CELL VOLUME 96.8 fL (80-100); MEAN CORPUSCULAR HEMOGLOBIN 31.8 pg (25-34); MEAN PLATELET VOLUME 10.2 fL (7.4-10.4); MONO % 1.9 %; NEUT % 88.9 %; PLATELET COUNT 147 K/uL (130-400); RED BLOOD COUNT 3.77 M/uL (4.7-6.1); WHITE BLOOD COUNT 10.83 K/uL (4.8-10.8)
[2017-06-28] MEDS: HYDROmorphone INJ 1 MG/ML SYR IV PRN ×4 (12:07→12:24)
[2017-06-28 12:10] LABS: COMPLETE YES; MEAN CORPUSCULAR HGB CONC 32.9 g/dl (32-36)
[2017-06-28 12:29] LABS: BUN/CREATININE RATIO 12.1 (10-20); CALCIUM 8.8 mg/dl (8.5-10.1); CREATININE 0.94 mg/dl (0.60-1.40); POTASSIUM 3.8 mmol/L (3.5-5.1)
--- NOTE | 2017-06-28 12:43 | Anesthesiology Progress Note ---
Anesthesia Post Op Note Date & Time Jun 28, 2017 at 12:42 Vital Signs Pain Intensity: 3 Vital Signs Past 12 Hours Date Time Temp Pulse Resp B/P (MAP) Pulse Ox O2 Delivery O2 Flow Rate FiO2 06/28/17 12:35 36.3 66 13 101/60 94 Nasal Cannula 2 06/28/17 12:25 61 13 97/61 96 Nasal Cannula 2 06/28/17 12:15 60 15 100/63 100 Nasal Cannula 2 06/28/17 12:05 68 18 100/64 100 Oxymask 10 06/28/17 11:55 52 15 99/64 99 Oxymask 10 06/28/17 11:45 76 21 115/58 92 Oxymask 10 06/28/17 11:37 36.3 75 17 104/67 97 Oxymask 10 06/28/17 07:58 54 16 132/80 100 4 06/28/17 07:32 36.9 56 18 114/75 97 Room Air 06/28/17 06:10 36.9 56 18 114/75 (88) 97 Room Air Notes Mental Status: alert / awake / arousable, participated in evaluation Pt Amnestic to Procedure: Yes Nausea / Vomiting: adequately controlled Pain: adequately controlled Airway Patency, RR, SpO2: stable & adequate BP & HR: stable & adequate Hydration State: stable & adequate Anesthetic Complications: no major complications apparent The patient appears to be resting comfortably.
[2017-06-28] MEDS: LACTATED RINGER'S 1000ML 1,000 ML IV SCH ×2 (14:28→19:59)
[2017-06-28] MEDS: ACETAMINOPHEN/CODEINE 300/30MG TAB PO PRN (14:29)
[2017-06-28] MEDS: HEPARIN SOD 5000 UNIT/0.5 ML CARP SQ SCH ×2 (14:34→22:19)
[2017-06-28] MEDS: CEFAZOLIN IV 1,000 MG in DEXTROSE 5% 50ML 50 ML IV SCH (15:46)
[2017-06-28] MEDS: MoRPHine SULFATE 2 MG/ML CARP IV PRN ×2 (18:26→22:22)
[2017-06-28] MEDS: TRAZODONE HCL 50 MG TAB PO SCH (20:41)
[2017-06-28] MEDS: ESCITALOPRAM OXALATE 10 MG TAB PO SCH (20:41)
[2017-06-29] MEDS: CEFAZOLIN IV 1,000 MG in DEXTROSE 5% 50ML 50 ML IV SCH (00:19)
[2017-06-29] MEDS: ACETAMINOPHEN/CODEINE 300/30MG TAB PO PRN ×3 (00:20→23:27)
[2017-06-29 03:16] VITALS: BP 106/55; PULSE 64; TEMP 37.1; O2SAT 95
[2017-06-29] MEDS: LACTATED RINGER'S 1000ML 1,000 ML IV SCH ×3 (03:46→19:27)
[2017-06-29] MEDS: HEPARIN SOD 5000 UNIT/0.5 ML CARP SQ SCH (05:40)
[2017-06-29] MEDS: MoRPHine SULFATE 2 MG/ML CARP IV PRN ×4 (05:45→19:30)
[2017-06-29 07:14] LABS: BASO % 0.1 %; BASO ABS # 0.01 K/uL (0-0.2); COMPLETE YES; EOS % 0.3 %; HEMATOCRIT 27.7 % (42-52); IG% 0.3 %; LYMPH % 20.3 %; LYMPH ABS # 1.48 K/uL (1.2-3.4); MEAN CELL VOLUME 94.2 fL (80-100); MEAN CORPUSCULAR HEMOGLOBIN 32.3 pg (25-34); MEAN CORPUSCULAR HGB CONC 34.3 g/dl (32-36); MONO % 13.6 %; NEUT % 65.4 %; PLATELET COUNT 131 K/uL (130-400); RED BLOOD COUNT 2.94 M/uL (4.7-6.1); WHITE BLOOD COUNT 7.29 K/uL (4.8-10.8)
[2017-06-29 07:25] VITALS: BP 108/63; PULSE 56; TEMP 37; O2SAT 96
[2017-06-29 07:43] LABS: BUN/CREATININE RATIO 12.3 (10-20); CALCIUM 7.8 mg/dl (8.5-10.1); CREATININE 0.99 mg/dl (0.60-1.40); POTASSIUM 3.7 mmol/L (3.5-5.1)
--- NOTE | 2017-06-29 08:43 | Progress Note ---
Subjective Date of Service: Jun 29, 2017. Subjective Pt evaluation today including: conversation w/ patient, physical exam, lab review Voiding: chaney catheter in place doing ok overnight walked within the room no nausea moderate pain no new leg pain or swelling Vital Signs Past 12 Hours Date Time Temp Pulse Resp B/P (MAP) Pulse Ox O2 Delivery O2 Flow Rate FiO2 06/29/17 07:25 37.0 56 17 108/63 (78) 96 Room Air 06/29/17 03:16 37.1 64 16 106/55 (72) 95 Nasal Cannula 2.0 06/29/17 00:20 Nasal Cannula 2.0 06/28/17 23:08 37.4 75 16 100/55 (70) 95 Room Air 06/29/17 06:44 Red Blood Count 2.94, Mean Corpuscular Volume 94.2, Mean Corpuscular Hemoglobin 32.3, Mean Corpuscular Hemoglobin Concent 34.3, Mean Platelet Volume 10.0, Neutrophils (%) (Auto) 65.4, Lymphocytes (%) (Auto) 20.3, Monocytes (%) (Auto) 13.6, Eosinophils (%) (Auto) 0.3, Basophils (%) (Auto) 0.1, Neutrophils # (Auto ) 4.77, Lymphocytes # (Auto) 1.48, Monocytes # (Auto) 0.99, Eosinophils # (Auto ) 0.02, Basophils # (Auto) 0.01 06/29/17 06:44 Test 06/29/17 06:44 White Blood Count 7.29 K/uL (4.8-10.8) Red Blood Count 2.94 M/uL (4.7-6.1) Hemoglobin 9.5 g/dL (14.0-18.0) Hematocrit 27.7 % (42-52) Mean Corpuscular Volume 94.2 fL (80-100) Mean Corpuscular Hemoglobin 32.3 pg (25-34) Mean Corpuscular Hemoglobin Concent 34.3 g/dl (32-36) Platelet Count 131 K/uL (130-400) Mean Platelet Volume 10.0 fL (7.4-10.4) Neutrophils (%) (Auto) 65.4 % Lymphocytes (%) (Auto) 20.3 % Monocytes (%) (Auto) 13.6 % Eosinophils (%) (Auto) 0.3 % Basophils (%) (Auto) 0.1 % Neutrophils # (Auto) 4.77 K/uL (1.4-6.5) Lymphocytes # (Auto) 1.48 K/uL (1.2-3.4) Monocytes # (Auto) 0.99 K/uL (0.11-0.59) Eosinophils # (Auto) 0.02 K/uL (0-0.5) Basophils # (Auto) 0.01 K/uL (0-0.2) RDW Standard Deviation 43.0 fL (36.4-46.3) RDW Coefficient of Variation 12.5 % (11.5-14.5) Immature Granulocyte % (Auto) 0.3 % Immature Granulocyte # (Auto) 0.02 K/uL (0.00-0.02) Anion Gap 5.0 mmol/L (3-11) Est Creatinine Clear Calc Drug Dose 91.5 ml/min Estimated GFR () 98.3 Estimated GFR (Non- 84.8 BUN/Creatinine Ratio 12.3 (10-20) Calcium Level 7.8 mg/dl (8.5-10.1) Problem List Medical Problems: (1) Anemia Status: Acute (2) Anticoagulated on Coumadin Status: Acute (3) Blood per rectum Status: Acute (4) Chest wall pain Status: Acute (5) Chronic deep vein thrombosis (DVT) Status: Acute (6) Hematuria Status: Acute (7) Hematuria Status: Acute (8) Intractable back pain Status: Acute (9) Low back pain Status: Acute (10) Lower back pain Status: Acute (11) Pleuritic chest pain Status: Acute (12) Precordial chest pain Status: Acute (13) Rectal bleeding Status: Acute (14) Shortness of breath Status: Acute Review of Systems Constitutional: No see HPI, No fever, No chills, No sweats, No weight loss, No weakness, No fatigue, No problem reported Cardiac: No see HPI, No chest pain, No orthopnea, No PND, No edema, No claudication, No palpitations, No problem reported Musculoskeletal: No see HPI, No joint pain, No muscle pain, No swelling, No calf pain, No problem reported Objective Vital Signs Date Time Temp Pulse Resp B/P (MAP) Pulse Ox O2 Delivery O2 Flow Rate FiO2 06/29/17 07:25 37.0 56 17 108/63 (78) 96 Room Air 06/29/17 03:16 37.1 64 16 106/55 (72) 95 Nasal Cannula 2.0 06/29/17 00:20 Nasal Cannula 2.0 06/28/17 23:08 37.4 75 16 100/55 (70) 95 Room Air 06/28/17 19:37 80 20 108/65 (79) 92 Room Air 06/28/17 18:22 85 115/73 (87) 06/28/17 16:44 102/68 (79) 115/69 (84) 103/67 (79) 06/28/17 16:24 Nasal Cannula 3.0 06/28/17 15:05 36.5 79 18 95/60 (72) 96 Nasal Cannula 2.0 06/28/17 14:05 71 15 101/62 (75) 95 06/28/17 13:35 65 17 97/58 (71) 94 06/28/17 13:05 36.4 79 20 96/61 (73) 93 Nasal Cannula 3.0 06/28/17 13:05 94 Nasal Cannula 3.0 06/28/17 13:05 Nasal Cannula 3.0 06/28/17 12:45 80 19 98/59 98 Nasal Cannula 2 06/28/17 12:35 36.3 66 13 101/60 94 Nasal Cannula 2 06/28/17 12:25 61 13 97/61 96 Nasal Cannula 2 06/28/17 12:15 60 15 100/63 100 Nasal Cannula 2 06/28/17 12:05 68 18 100/64 100 Oxymask 10 06/28/17 11:55 52 15 99/64 99 Oxymask 10 06/28/17 11:45 76 21 115/58 92 Oxymask 10 06/28/17 11:37 36.3 75 17 104/67 97 Oxymask 10 Physical Exam General Appearance: no apparent distress Eyes: normal inspection ENT: hearing grossly normal Neck: no adenopathy Respiratory/Chest: no respiratory distress, no accessory muscle use Cardiovascular: no edema Abdomen: non tender, soft (incisions appropriate, soft, appropriately tender - ZACHARY serosang. chaney clear) Extremities: non-tender Neurologic/Psychiatric: alert, normal mood/affect, oriented x 3 Laboratory Results Last 24 Hours Test 06/28/17 11:46 06/29/17 06:44 White Blood Count 10.83 K/uL 7.29 K/uL Red Blood Count 3.77 M/uL 2.94 M/uL Hemoglobin 12.0 g/dL 9.5 g/dL Hematocrit 36.5 % 27.7 % Mean Corpuscular Volume 96.8 fL 94.2 fL Mean Corpuscular Hemoglobin 31.8 pg 32.3 pg Mean Corpuscular Hemoglobin Concent 32.9 g/dl 34.3 g/dl Platelet Count 147 K/uL 131 K/uL Mean Platelet Volume 10.2 fL 10.0 fL Neutrophils (%) (Auto) 88.9 % 65.4 % Lymphocytes (%) (Auto) 8.6 % 20.3 % Monocytes (%) (Auto) 1.9 % 13.6 % Eosinophils (%) (Auto) 0.3 % 0.3 % Basophils (%) (Auto) 0.1 % 0.1 % Neutrophils # (Auto) 9.63 K/uL 4.77 K/uL Lymphocytes # (Auto) 0.93 K/uL 1.48 K/uL Monocytes # (Auto) 0.21 K/uL 0.99 K/uL Eosinophils # (Auto) 0.03 K/uL 0.02 K/uL Basophils # (Auto) 0.01 K/uL 0.01 K/uL RDW Standard Deviation 43.8 fL 43.0 fL RDW Coefficient of Variation 12.4 % 12.5 % Immature Granulocyte % (Auto) 0.2 % 0.3 % Immature Granulocyte # (Auto) 0.02 K/uL 0.02 K/uL Sodium Level 142 mmol/L 139 mmol/L Potassium Level 3.8 mmol/L 3.7 mmol/L Chloride Level 107 mmol/L 104 mmol/L Carbon Dioxide Level 27 mmol/L 30 mmol/L Anion Gap 8.0 mmol/L 5.0 mmol/L Blood Urea Nitrogen 11 mg/dl 12 mg/dl Creatinine 0.94 mg/dl 0.99 mg/dl Est Creatinine Clear Calc Drug Dose 96.3 ml/min 91.5 ml/min Estimated GFR () 104.6 98.3 Estimated GFR (Non- 90.3 84.8 BUN/Creatinine Ratio 12.1 12.3 Random Glucose 128 mg/dl 108 mg/dl Calcium Level 8.8 mg/dl 7.8 mg/dl Assessment and Plan POD#1 s/p RALP - recovering appropriately - some drift in H and H - transition back to lovenox starting today - assuming he does well, start coumadin back tomorrow - ambulate today - advance diet at lunch if he feels well - likely home tomorrow
[2017-06-29] MEDS ORDERED: ENOXAPARIN 80 MG/0.8 ML SYR SQ ONE (09:30)
--- NOTE | 2017-06-29 10:21 | Anesthesiology Progress Note ---
Anesthesia Post Op Note Date & Time Jun 29, 2017 at 10:20 Vital Signs Pain Intensity: 7.0 Vital Signs Past 12 Hours Date Time Temp Pulse Resp B/P (MAP) Pulse Ox O2 Delivery O2 Flow Rate FiO2 06/29/17 07:25 37.0 56 17 108/63 (78) 96 Room Air 06/29/17 03:16 37.1 64 16 106/55 (72) 95 Nasal Cannula 2.0 06/29/17 00:20 Nasal Cannula 2.0 06/28/17 23:08 37.4 75 16 100/55 (70) 95 Room Air Notes Mental Status: alert / awake / arousable, participated in evaluation Pt Amnestic to Procedure: Yes Nausea / Vomiting: adequately controlled Pain: adequately controlled, improving with treatment Airway Patency, RR, SpO2: stable & adequate BP & HR: stable & adequate Hydration State: stable & adequate Anesthetic Complications: no major complications apparent
[2017-06-29 15:00] VITALS: BP 113/68; PULSE 66; TEMP 36.7; O2SAT 92
[2017-06-29] MEDS: ESCITALOPRAM OXALATE 10 MG TAB PO SCH (21:36)
[2017-06-29] MEDS: TRAZODONE HCL 50 MG TAB PO SCH (21:36)
[2017-06-29 23:10] VITALS: BP 108/56; PULSE 70; TEMP 37.7; O2SAT 94
[2017-06-30] MEDS: LACTATED RINGER'S 1000ML 1,000 ML IV SCH (03:17)
[2017-06-30 03:18] VITALS: TEMP 36.9
[2017-06-30] MEDS ORDERED: HYDR-4383 PO ×2 (07:19)
[2017-06-30] MEDS ORDERED: CIPR-255 PO ×2 (07:19)
--- NOTE | 2017-06-30 07:26 | Discharge Instructions ---
Discharge Instructions Date of Service Jun 30, 2017. Admission Reason for Admission: Prostate Cancer, Acute Deep-Vein Thrombosis Discharge Discharge Diagnosis / Problem: Prostate cancer Discharge Goals Goal(s): Decrease discomfort, Increase independence, Improve disease control, Prevent Disease Progression Activity Recommendations Activity Limitations: per Instructions/Follow-up section Lifting Limitations: no more than 25 pounds, until after follow-up appointment Exercise/Sports Limitations: gradually increase as tolerated May Resume Sexual Activity: after follow-up appointment Shower/Bathe: no limitations (ok to shower, please avoid hot tubs/bath tubs/ swimming pools for 2 weeks) Driving or Machine Use: no limitations (as long as you are off of pain medications and feel safe to control your vehicle) . Instructions / Follow-Up Instructions / Follow-Up Please keep your follow up appointment for catheter removal. It is not unusual to have a small amount of leakage around the catheter and to occasionally have bladder spasms (a cramp of the bladder - which can be uncomfortable, but should resolve after a short duration). Please continue with lovenox and resume your coumadin starting ton ( ). If you have any concerns that you are bleeding, please contact Dr. Leonard' s office immediately. Please have a lab test completed (blood work) prior to the day of your catheter removal. You have been given a prescription for pain medications - please use these as needed. Please also take a stool softener with these, as they can cause severe constipation. You have a prescription for 3 days of ciprofloxacin (antibiotic). Please start this medication the day prior to your appointment for catheter removal. Current Hospital Diet Hospital Diet(s): Regular Diet Discharge Diet Recommended Diet: Regular Diet Procedures Procedures Performed: Robotic Assisted Laparoscopic Prostatectomy Pending Studies Studies pending at discharge: no Medical Emergencies . Who to Call and When: Medical Emergencies: If at any time you feel your situation is an emergency, please call 911 immediately. . Non-Emergent Contact Non-Emergency issues call your: Urologist Call Non-Emergent contact if: you have a fever, temperature is above 101.5, your pain is not controlled, your pain is worsening, wound has increased drainage, wound has increased redness, wound has increased pain . . "Provider Documentation" section prepared by Osmel Adler. . VTE Core Measure Inpt VTE Proph given/why not?: Enoxaparin (Lovenox)SQ, Warfarin (Coumadin) [place] Drug Monitoring Program Search Results: patient reviewed within database, no issues identified
[2017-06-30 07:38] VITALS: BP 123/71; PULSE 52; TEMP 36.7; O2SAT 95
--- NOTE | 2017-06-30 07:40 | Progress Note ---
Progress Note Date of Service Jun 30, 2017. Progress Note S: Did very well overnight - pain very well controlled - tolerating PO well - ambulating - great UOP, appropriate drain output O: Vital Signs Past 12 Hours Date Time Temp Pulse Resp B/P (MAP) Pulse Ox O2 Delivery O2 Flow Rate FiO2 06/30/17 03:18 36.9 06/29/17 23:45 Nasal Cannula 2.0 06/29/17 23:10 37.7 70 16 108/56 (73) 94 Nasal Cannula 2.0 NAD AAOx3 abd soft - non-distended, non-ecchymotic. Drain serosang - chaney clear - no lower extremity edema A/P: POD #2 s/p RALP - drain out - chaney teaching - home today - lovenox injection prior to leaving - start coumadin again tonight per coumadin clinic recs
[2017-06-30] MEDS: ACETAMINOPHEN/CODEINE 300/30MG TAB PO PRN (07:45)
[2017-06-30] MEDS ORDERED: ENOXAPARIN 80 MG/0.8 ML SYR SQ ONE (09:00)
[2017-06-30 10:35] VITALS: BP 123/71; PULSE 52; TEMP 36.7; O2SAT 95
--- NOTE | 2017-06-30 16:38 | [facility] Operative Report ---
Operative Report Operative Date Jun 30, 2017. Pre-Operative Diagnosis Prostate cancer Post-Operative Diagnosis Prostate Cancer Procedure(s) Performed Robotic Assisted Laparoscopic Prostatectomy Surgeon Dr. Salo Leonard [employer] Wafer Inspector Surgeon(s) Patrick Robledo PA-C Estimated Blood Loss 200 mL Findings Adherent posterior plane Specimens Permanent specimens A: Prostate and seminal vesicles B: Periprostatic fat C: Right lateral margin Drains ZACHARY; chaney Anesthesia gen Complication(s) None Disposition Recovery Room / PACU (stable) Indications Prostate cancer Description of Procedure Joe Pollack was identified in the preoperative holding area, appropriate informed consents were reviewed and completed, and he was transported to the operating suite. Subcutaneous heparin was administered in the pre-operative holding area. He has a history of DVT/PE, and in turn had an IVC filter placed by the vascular surgery team immediately prior to arrival in our operative suite. He received appropriate antibiotics and general anesthesia. He was positioned in dorsal lithotomy, a B&O suppository was inserted after digital rectal exam, and he was prepped and draped in standard fashion. A chaney catheter was inserted in the sterile field. A Verress needle was passed per umbilicus with uniform insuflation of the abdomen to 15mmHg. He was placed in steep trendelenberg position. A periumbilical incision was then made to accomodate a 12mm visiport with 10mm 0degree laparascope. Inspection of the abdomen was carried out, and there was no evidence of traumatic entry or injury secondary to the Verress needle. The anterior abdominal wall was inspected and all planned port sites were determined to be safe and clear of adhesions. Ports were placed in a standard robotic prostatectomy template without incident. To begin the robotic portion of the case, the left lateral aspect of the sigmoid was mobilized off of the left pelvic side wall to allow the pouch of Nate to be appropriately emptied. The medial umbilical ligaments were then controlled with bipolar electrocautery just inferior to the umbilicus. Following cauterization, they were divided utilizing monopolar cautery. A peritoneal incision was carried from this location to the medial aspect of the internal inguinal rings bilaterally with care to avoid opening through the ring. This incision was concluded when the vas deferens was reached. Dissection of the bladder and prostate off of the posterior aspect of the pubic arch was completed allowing full visualization of the prostate. The fat overlying the prostate was removed en bloc and passed off the table as a specimen labeled "periprostatic fat". The endopelvic fascia was cleared during this portion of the procedure, and subsequently opened - first on the right and then the left. The incision through the endopelvic fascia began near the prostate-bladder junction and was carried to the apex with extreme care to preserve all lateral levator musculature as well as the periurethral musculature and sphincter complex. The puboprostatic ligaments were thinned slightly bilaterally before placing a 0-vicryl figure of 8 stitch around the DVC. My attention then returned to the prostate, with identification of the bladder neck aided by gentle traction on the chaney catheter and lateral to medial pressure at the presumed level of the bladder neck with the robotic instruments. An anterior cystotomy was made, the chaney balloon deflated and the catheter guided through the incision to allow anterior retraction. I attempted to preserve maximal bladder neck musculature as I circumferentially developed the bladder neck. After incision through the posterior aspect of the mucosa, the dissection was carried through detrusor muscle until the bilateral ampullae of the vasa were identified. Vasa were each dissected before being transected. These were used to further aide in anterior retraction as the bilateral seminal vesicals were dissected with very judicious use of bipolar electrocautery. Following SV dissection, a posterior plane behind the prostate was developed - splitting Denonvillier's fascia. This dissection was carried as far as possible towards the apex as well as far as possible laterally. This plane was somewhat adherent and fibrotic, making the dissection moderately more challenging than normal. An incision in the lateral prostatic fascia was then made bilaterally to facilitate control of the vascular pedicles. The pedicles were each controlled with a series of weck clips. The neurovascular bundles were identified and a never sparing dissection around the lateral aspect of the prostate was performed. His neurovascular pedicles were slightly plumper appearing than normal, and I resected a small amount of tissue over the right bundle to r/o presence of prostate tissue or cancer. This specimen was labeled as "right lateral margin". The apical attachments of the prostate were remaining at that stage. The DVC was divided with bipolar electrocautery. Urmila-prostatic tissue incised with sharp cautery and monopolar cautery. Maximal urethral length was preserved before dividing the urethra with sharp dissection. The prostate was collected in an endocatch bag and moved out of the field of vision. Hemostasis was confirmed and anastomosis of the bladder and urethra was completed utilizing a double armed V-Lock stitch. A new Chaney catheter was inserted and the anastomosis tested with irrigation. There was no evidence of leak. Floseal coagulant was placed around the anastomosis. A drain was inserted. The robot was undocked, the specimen extracted through expansion of the urmila- umbilical camera port. The fascia was closed with a series of 0-PDS figure of 8 stitches. The right assistant athletic trainer port was closed in two layers - with a figure of 8 0-vicryl to reapproximate the fascia followed by 4-0 monocryl to close the skin. Monocryl was used to close all other skin incisions. All wounds were infiltrated with marcaine prior to application of Dermabond. The case was concluded and the patient taken to the PACU in stable condition. I attest to the content of the Intraoperative Record and any orders documented therein. Any exceptions are noted below.
--- NOTE | 2017-07-04 08:32 | Discharge Summary ---
Discharge Summary Date of Service Jul 04, 2017. Discharge Summary Admission Date: Jun 28, 2017 at 11:33 Discharge Date: Jun 30, 2017 Discharge Disposition: Home Principal Diagnosis: Prostate cancer Procedures: Robotic prostatectomy Medication Reconciliation New Medications: Ciprofloxacin Hcl (Cipro) 500 Mg Tab 500 MG PO BID, #6 TAB Continued Medications: Baclofen (Lioresal) 10 Mg Tab 10 MG PO HS PRN for RN, TAB Buspirone Hcl (Buspirone Hcl) 10 Mg Tab 10 MG PO TID for 30 Days, #90 TAB 1 Refill Cholecalciferol (D3 Ultra Strength) 5,000 Unit Cap 1 TAB PO QPM Cyanocobalamin (B-12) 250 Mcg Tab 500 MCG PO QPM Enoxaparin (Lovenox) 80 Mg/0.8 Ml Inj 80 MG SQ Q12H, SYR Escitalopram (Lexapro) 10 Mg Tab 10 MG PO QPM, TAB [id number]-[id number] Cho (Glucosamine Chondroitin &) 1 Tab Tab 1 TAB PO QPM Home O2 Therapy (Oxygen) Gas 2 LITERS NA HS, BTL Hydrocodone/Acetaminophen ([place] 10/325 Tab) 1 Tab Tab 1 TAB PO TID PRN for Pain, #30 TAB (This prescription has been renewed) Hydrocortisone Acetate (Anucort-Hc) 25 Mg Supp 1 DOSE RE BID PRN for RN Lidocaine (Lidoderm Patch 5%) 1 Ea Tdsy 1 DOSE TOP PRN Metaxalone (Metaxalone) 400 Mg Tab 800 MG PO TID PRN for Pain Multivitamin (Multivitamin) Tab 1 TAB PO QPM Trazodone Hcl (Trazodone) 50 Mg Tab 50 MG PO HS, TAB Warfarin Sod (Jantoven) 5 Mg Tab 10 MG PO 5XWK, TAB TAKE , TUESDAY, TUESDAY, TUESDAY, TUESDAY Warfarin Sod (Jantoven) 7.5 Mg Tab 7.5 MG PO 2XWK TAKE TUESDAY, TUESDAY Hospital Course Patient admitted for robotic prostatectomy. As a history of DVT/PE and had an IVC filter placed by the vascular surgery team immediately prior to her procedure. Details of both of those procedures can be seen in the operative reports, however he tolerated the procedures extremely well. He progressed well after the procedure and was tolerating a diet and ambulatory. He remained in the hospital for 1 additional day over the standard length of stay secondary to resuming his anticoagulation. He was maintained on Lovenox medially postoperatively, and then transition back to his Coumadin prior to leaving the hospital. His drain was removed prior to discharge and he remained in stable condition. Total time spent on discharge = This includes examination of the patient, discharge planning, medication reconciliation, and communication with other providers. Discharge Instructions Please see previously written discharge instructions
--- NOTE | 2017-07-06 09:40 | EDITING REQUIRED CODING QUERY ---
CODING QUERY To promote full compliance with coding requirements relating to patient care, provider participation is requested in all cases of able seaman uncertainty. Please assist us with the question(s) below: Coding Question(s): Dr. Leonard, Please clarify the date of the patient's robotic prostatectomy surgery. The operative notes documented it as 06/28, but the operative record states 06/30: ( x ) 06/28/17 ( ) 06/30/17 ( ) Other, please explain Physician's Response(s): Thank you for your time, WILSON Wing, AUTOMATIC LOG CUT OFF SAWYER
== END 2017-06-30 11:25 | disposition home or self-care (01) | DRG 707 ==
LOC: C.ACU 05:32 → C.MSW 11:33 → ENRESERV 12:41
PROVIDERS: ADMIT Urology; ATTEND Urology
PROC: 0VT34ZZ Resection of Bilateral Seminal Vesicles, Percutaneous Endoscopic Approach (ICD-10-PCS; 2017-06-28)
PROC: 0VT04ZZ Resection of Prostate, Percutaneous Endoscopic Approach (ICD-10-PCS; 2017-06-28)
PROC: 8E0W4CZ Robotic Assisted Procedure of Trunk Region, Percutaneous Endoscopic Approach (ICD-10-PCS; 2017-06-28)
PROC: 06H03DZ Insertion of Intraluminal Device into Inferior Vena Cava, Percutaneous Approach (ICD-10-PCS; principal; 2017-06-28 07:30)
DX: C61 Malignant neoplasm of prostate (principal); I82.532 Chronic embolism and thrombosis of left popliteal vein; I82.542 Chronic embolism and thrombosis of left tibial vein; D68.59 Other primary thrombophilia; K21.9 Gastro-esophageal reflux disease without esophagitis; M19.90 Unspecified osteoarthritis, unspecified site; F41.9 Anxiety disorder, unspecified; F43.10 Post-traumatic stress disorder, unspecified; Z99.81 Dependence on supplemental oxygen; Z86.711 Personal history of pulmonary embolism; Z86.59 Personal history of other mental and behavioral disorders; Z80.0 Family history of malignant neoplasm of digestive organs; Z80.41 Family history of malignant neoplasm of ovary; Z80.52 Family history of malignant neoplasm of bladder; Z79.891 Long term (current) use of opiate analgesic; Z79.01 Long term (current) use of anticoagulants; Z79.899 Other long term (current) drug therapy

== ENCOUNTER → 2017-07-04 | Outpatient (CLI) | payer BC ==
[~2017-07-04] MED LIST changes: +CIPR-255 PO; +ENOX80IN SQ
[2017-07-04 17:14] LABS: HEMATOCRIT 31.4 % (42-52); MEAN CELL VOLUME 97.5 fL (80-100); MEAN CORPUSCULAR HEMOGLOBIN 31.7 pg (25-34); MEAN CORPUSCULAR HGB CONC 32.5 g/dl (32-36); MEAN PLATELET VOLUME 11.1 fL (7.4-10.4); PLATELET COUNT 194 K/uL (130-400); RED BLOOD COUNT 3.22 M/uL (4.7-6.1); WHITE BLOOD COUNT 7.79 K/uL (4.8-10.8)
== END | disposition home or self-care (01) ==
LOC: C.LABBC 13:27
PROVIDERS: ATTEND Urology
DX: C61 Malignant neoplasm of prostate (principal)

== ENCOUNTER 2017-09-15 10:50 | Day surgery (SDC) | payer BC ==
[~2017-09-15] VITALS: Ht 182.9 cm; Wt 74.0 kg
[~2017-09-15 10:50] MED LIST changes: +CEFAZOLIN 1000MG IV PUSH 5 ML IV SCH; -CIPR-255 PO; -ENOX80IN SQ; +SILD1TAB25 PO; +SODIUM CHLORIDE 0.9% 1000ML IV SCH
[2017-09-15 11:20] VITALS: BP_SYST 81; PULSE 52; TEMP 36.6; O2SAT 97; Ht 182.9 cm; Wt 74.0 kg
[2017-09-15 11:34] LABS: INR 1.7 (0.9-1.1); PROTHROMBIN TIME (PATIENT) 18.2 SECONDS (9.0-12.0)
[2017-09-15 11:45] LABS: BUN/CREATININE RATIO 15.8 (10-20); CREATININE 1.14 mg/dl (0.60-1.40)
--- NOTE | 2017-09-15 12:39 | History and Physical ---
History & Physical Date of Service Sep 15, 2017. History & Physical Hx of significant DVT and PE and insertion of IVC filter History of Present Illness The patient is a 57 year old male who had a PE in 2013. After coming off coumadin, he developed a superficial phlebitis and placed back on coumadin. He came off in 2015 and was diagnosed with prostate cancer in Oct 2015. He was found to have multiple DVT's at that time. Placed on Xarelto. He developed a PE on Xarelto and was switched to coumadin. A filter was also placed at that time. Allergies Coded Allergies: No Known Allergies (Unverified , 06/28/17) Home Medications Scheduled Buspirone Hcl (Buspirone Hcl), 10 MG PO TID Cholecalciferol (D3 Ultra Strength), 1 TAB PO QPM Cyanocobalamin (B-12), 500 MCG PO QPM Enoxaparin (Lovenox), 80 MG SQ Q12H Escitalopram (Lexapro), 10 MG PO QPM Knryjwjgqau-Ylghikgapqh-Zh Cho (Glucosamine Chondroitin &), 1 TAB PO QPM Home O2 Therapy (Oxygen), 2 LITERS NA HS Lidocaine (Lidoderm Patch 5%), 1 DOSE TOP PRN Multivitamin (Multivitamin), 1 TAB PO QPM Trazodone Hcl (Trazodone), 50 MG PO HS Warfarin Sod (Jantoven), 10 MG PO 5XWK Warfarin Sod (Jantoven), 7.5 MG PO 2XWK Scheduled PRN Baclofen (Lioresal), 10 MG PO HS PRN for RN Hydrocodone/Acetaminophen ([place] 10/325 Tab), 1 TAB PO TID PRN for Pain Hydrocortisone Acetate (Anucort-Hc), 1 DOSE RE BID PRN for RN Metaxalone (Metaxalone), 800 MG PO TID PRN for Pain Problem List Medical Problems: (1) Acute Venous Embolism & Thrombosis Deep Vessels Proximal Le (2) Chest pain (3) Idiopath Sleep Related Non-Obstruc Alveolar Hypoventilation (4) Pain In Limb (5) Prostate cancer Surgical / Medical History Hx Cardiac Surgery: No Hx Abdominal Surgery: No Hx Cancer Surgery: No Hx Thoracic Surgery: No Hx Orthopedic: No Hx Urinary Tract Surgery: No Past Medical/Surgical History: Cancer, Pulmonary Emboli, Thrombophlebitis Family History Cancer BROTHER, Onset:50's - 60 (bladder cancer) MOTHER, Onset:60 years & older (uterine and stomach cancer) Diabetes mellitus SON (Type 1 DM) Social History Smoking Status: Never Smoker Hx Tobacco Use In Past Year?: No Hx Alcohol Use - Type & Amnt: No Hx Substance Use -Type & Amnt: No ROS: Vascular Con v2 Review of Systems Constitutional: No chills, No diaphoresis, No fever, No malaise, No weakness, No weight gain, No weight loss, No sweats, No fatigue, No problem reported Respiratory: No cough, No cyanosis, No HEADLEY, No hemoptysis, No orthopnea, No PND , No short of breath, No sputum production, No stridor, No wheezing, No dyspnea , No problem reported Cardiovascular: No chest pain, No chest tightness, No chest pressure, No palpitations, No syncope, No diaphoresis, No edema, No intermittent claudication , No orthopnea, No cyanosis, No mumur, No lightheadedness, No paroxysmal nocturnal dyspnea, No problem reported Gastrointestinal: No abdominal pain, No constipation, No diarrhea, No nausea, No vomiting, No anorexia, No appetite changes, No belching, No flatulence, No food intolerance, No hematemesis, No hemorrhoids, No hematochezia, No stool changes, No heartburn, No indigestion, No dysphagia, No rectal bleeding, No problem reported Musculoskeletal: No back pain, No gout, No joint pain, No joint swelling, No muscle pain, No muscle stiffness, No muscle weakness, No neck pain, No problem reported Psychiatric: No anxiety, No alcohol abuse, No auditory hallucinations, No depression, No drug abuse, No homicidal ideation, No mood changes, No suicidal ideation, No visual hallucinations, No problem reported Exam: Vascular Con v2 Physical Exam Constitutional: General Apperance: heathly-appearing, well-nourished, well-developed Level of Distress: NAD Ambulation: ambulating normally Psychiatric: Mental Status: active & alert, normal mood, normal affect Orientation: oriented except where noted, to time, to place, to person Memory: recent memory normal, remote memory normal Lungs: Auscultation: breath sounds normal Cardiovascular: Heart Auscultation: RRR Abdomen: Inspection & Palpation: soft Musculoskeletal: normal, normal strength (5/5 throughout), normal tone Neurologic: Cranial Nerves: grossly intact Sensation: grossly intact A&P: Vascular Con v2 Assessment and Plan Imp: Multiple occurrences of DVT and PE Prostate cancer Plan: Patient is to have an IVC filter removed. I have discussed the risks options and benefits of the procedure with the patient. The patient understands the risks options and benefits and agrees to the procedure.
[2017-09-15 12:53] VITALS: BP 120/81; PULSE 52; TEMP 36.6; O2SAT 97
[2017-09-15] MEDS ORDERED: FENTANYL CITRATE INJ 50 MCG/1 ML 2 ML VIAL ONE (12:53)
[2017-09-15] MEDS ORDERED: MIDAZOLAM HCL 1 MG/ML 2ML VIAL ONE (12:54)
--- NOTE | 2017-09-15 13:38 | Procedure Note ---
Pre-Mod Sedation Assessment General Date of Moderate Sedation: Sep 15, 2017. Vital Signs: Vital Signs Past 12 Hours Date Time Temp Pulse Resp B/P (MAP) Pulse Ox O2 Delivery O2 Flow Rate FiO2 09/15/17 12:53 36.6 52 20 120/81 97 Room Air 09/15/17 11:20 36.6 52 20 81/ (27) 97 Room Air Pre-Sedation Airway Assessment Oral Cavity: WNL Short Thick Neck: No Hx of Sleep Apnea: No Smoking Status: Never Smoker Mallampati Classification: Class I ASA Classification: Class II Notes The planned sedation has been discussed with the patient and consent obtained. I have identified the patient, determined the appropriateness of sedation and have assessed the patient immediately prior to the procedure. All medicine(s) and interventions are by my order.
--- NOTE | 2017-09-15 14:13 | [facility] Operative Report ---
Operative Report Operative Date Sep 15, 2017. Pre-Operative Diagnosis Status Post IVC Filter Insertion Prostate Cancer Post-Operative Diagnosis Same Procedure(s) Performed Inferior Vena Cava Filter Removal Right Jugular Approach Ultrasound Localization or Right Jugular Vein Moderate Sedation 5525- 1106 Surgeon Noemi Coremaker Bench Surgeon(s) None Findings no clot in cava or filter Specimens a; IVC Filter Anesthesia Local with sedation Complication(s) None Disposition Indications This is a 57-year-old gentleman with a filter in place. He is here for removal of his vena cava filter. I have discussed the risks options and benefits of the procedure with the patient. The patient understands the risks options and benefits and agrees to the procedure. Description of Procedure The patient was brought to the angio suite and placed in the supine position. The right side of the neck was prepped and draped in the usual fashion. The right internal jugular vein was located with ultrasound. It was patent, compressed easily, and had no filling defects. The vein was then punctured under ultrasound visualization. A guidewire was then passed centrally into the inferior vena cava under fluoroscopic guidance. The puncture site was then dilated and the filter removal sheath inserted. It was passed to the infra renal vena cava above the filter. A venacavagram was done which showed no cava clot in the cava or filter. The filter removal snare was then passed through the sheath and the hook of the filter was snared.. The snare was then tightened and the sheath pushed in over the filter. It retracted easily. The filter was removed. Post removal venogram showed no extravasation of contrast. The sheath was the removed. Pressure was applied to the puncture site. Adequate hemostasis was obtained and a sterile dressing was applied. The patient left the angio suite in good condition and tolerated the procedure well. I attest to the content of the Intraoperative Record and any orders documented therein. Any exceptions are noted below.
[2017-09-15] MEDS ORDERED: FENTANYL CITRATE INJ 50 MCG/1 ML 2 ML VIAL IV ONE (14:14)
[2017-09-15] MEDS ORDERED: LIDOCAINE HCL 1% 20 ML VIAL INJ ONE (14:14)
[2017-09-15] MEDS ORDERED: MIDAZOLAM HCL 1 MG/ML 2ML VIAL IV ONE (14:14)
[2017-09-15] MEDS ORDERED: IODIXANOL (VISIPAQUE) 270 MG/ML 50ML IV ONE (14:14)
--- NOTE | 2017-09-15 14:14 | Discharge Instructions ---
Discharge Instructions Date of Service Sep 15, 2017. Visit Reason for Visit: S/P Filter Placement Discharge Discharge Diagnosis / Problem: Post filter insertion, Removal of vena cava filter Discharge Goals Goal(s): Therapeutic intervention Activity Recommendations Activity Limitations: per Instructions/Follow-up section Anesthesia . Post Anesthesia Instructions: If you have had General Anesthesia or IV Sedation: * Do not drive today. * Resume driving when surgeon permits. * Do not make important decisions or sign legal documents today. * Call surgeon for: 1. Temperature elevations greater than 101 degrees F. 2. Uncontrollable pain. 3. Excessive bleeding. 4. Persistent nausea and vomiting. 5. Medication intolerance (nausea, vomiting or rash). * For nausea and vomiting use only clear liquids such as: tea, soda, bouillon until nausea subsides, then gradually increase diet as tolerated. * If you have any concerns or questions, call your surgeon's office. If physician is unavailable and it is an emergency, call 911 or go to the nearest emergency room. . Instructions / Follow-Up Instructions / Follow-Up Call [phone] to schedule a follow up appointment if one not already scheduled. SPECIAL CARE INSTRUCTIONS: Medications: * Continue to take your medications as directed. If you have been given a prescription for Plavix, please fill it immediately and take as directed. Incision Care: * Your puncture site may have some bruising and minor swelling for about one week. * You will have a small dressing covering your puncture site. You may remove the dressing after 24 hours and shower. You may let the warm soapy water run over it, but be sure to dry the puncture site well and keep it dry. * DO NOT IMMERSE THE INCISION IN A TUB/POOL/etc. UNTIL HEALED. * Puncture sites should be kept covered with a band-aid until it begins to heal. Restrictions: * Depending on whether you leg or arm was punctured to access the arteries, you will be required to lay flat, hold your arm still, or both, for about 4 hours after the procedure to prevent bleeding. * Limit your activity for the first 48 hours. You may walk and go up and down steps. Avoid excessive bending or movement at the puncture site. Possible Complications: * Excessive Swelling - after blood flow is improved you may notice increased swelling in the lower legs. This is a normal response. This usually depends on the amount of blockages in the leg, how long they have been there prior to your procedure and how much blood flow was restored. Elevating your legs will help to improve this. Please notify our office ([phone] ) if the swelling does not go away after lying in bed overnight. * Infection/Drainage/Bleeding - Drainage or bleeding from the puncture site should be minimal. If you have excessive bleeding or drainage, call our office ([phone]) right away. * Pain - You may experience some mild pain or soreness at your puncture site. If your pain does not improve, please contact our office ([phone]). Call your doctor and seek emergent treatment if you develop: * Temperature above 101 degrees * Any fever or chills * Any redness or purulent drainage from the puncture site * Any new dusky/blue colored toes or feet with coolness or sharp or aching pain. SKIN IRRITATION: * You may experience some redness and/or swelling in the area where radiation was administered. If any skin irritation occurs, please contact your family physician. FOLLOW UP VISIT: Keep any scheduled doctor appointments. Diet Recommendations Recommended Home Diet: resume previous diet Procedures Procedures Performed: Inferior Vena Cava Filter Removal Right Jugular Approach Ultrasound Localization or Right Jugular Vein Moderate Sedation 1355- 1411 Pending Studies Studies pending at discharge: no Medical Emergencies . Who to Call and When: Medical Emergencies: If at any time you feel your situation is an emergency, please call 911 immediately. . Non-Emergent Contact Non-Emergency issues call your: Surgeon . . "Provider Documentation" section prepared by Yassine Franklin. .
[2017-09-15] MEDS ORDERED: OXYCODONE/ACETAMINOPHEN 5-325 TAB PO PRN (14:15)
[2017-09-15 14:20] VITALS: BP 117/77; PULSE 58; TEMP 36.7; O2SAT 98
[2017-09-15 14:54] VITALS: BP 119/88; PULSE 68; O2SAT 97
== END 2017-09-15 15:28 | disposition home or self-care (01) ==
LOC: C.ACU 10:50
PROVIDERS: ATTEND Surgery Vascular Surgery
DX: Z45.89 Encounter for adjustment and management of other implanted devices (principal); I82.409 Acute embolism and thrombosis of unspecified deep veins of unspecified lower extremity; C61 Malignant neoplasm of prostate; Z99.81 Dependence on supplemental oxygen; Z79.899 Other long term (current) drug therapy

== ENCOUNTER → 2017-12-14 | Outpatient (CLI) | payer BC ==
[~2017-12-14] MED LIST changes: -CEFAZOLIN 1000MG IV PUSH 5 ML IV SCH; -SODIUM CHLORIDE 0.9% 1000ML IV SCH
--- NOTE | 2017-12-21 05:47 | CODING QUERY NO DIAGNOSIS ---
TREATMENT RENDERED WITHOUT A DIAGNOSIS To promote full compliance with coding requirements relating to patient care, physician participation is requested in all cases of layout technician uncertainty. Please assist us with providing a diagnosis/symptom for the test(s) below: A diagnosis/symptom was not documented on your Order. A valid diagnosis/symptom is required to bill all insurances. Please remember that we are unable to code a diagnosis of rule out, probable, possible, questionable, or suspected. Tests that require a diagnosis: *PSA DIAGNOSIS: Provider Signature: Date: Thank you Gayle Ellis [employer] Information Management Once completed, please kindly fax back to [phone] For questions please call [phone]
== END | disposition home or self-care (01) ==
LOC: C.LABBC 08:30
PROVIDERS: ATTEND Urology
DX: C61 Malignant neoplasm of prostate (principal)

== ENCOUNTER → 2018-06-09 | Outpatient (CLI) | payer BC ==
[~2018-06-09] MED LIST changes: -ESCI10TA17 PO; +ESCI1TAB10 PO; +HYDR-4079 PO; -HYDR-4383 PO; +LIDO1PAD2 TOP; +MAGN400T6 PO; +META-38 PO; -META1TAB PO; -NF656 TOP; -SILD1TAB25 PO; +SILD1TAB31 PO; +WARF-246 PO; -WARF5TAB7 PO; -WARF7.5T4 PO; +[UNRECOGNIZED DRUG - CODE] PO
== END | disposition home or self-care (01) ==
LOC: C.LABBC 09:34
PROVIDERS: ATTEND Urology
DX: C61 Malignant neoplasm of prostate (principal)

== ENCOUNTER 2022-02-12 12:23 | Inpatient (IN) ==
[2022-02-12] MEDS ORDERED: SODIUM CHLORIDE 0.9% 1000ML 1,000 ML IV ONE (12:55)
[2022-02-12] MEDS ORDERED: VANCOMYCIN CONSULT ACTIVE PRN ×2 (12:59→17:06)
[2022-02-12] MEDS ORDERED: VANCOMYCIN HCL 2,000 MG in SODIUM CHLORIDE 0.9% 500 ML IV ONE (13:00)
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
[2022-02-12 13:22] LABS: Basophils # (auto) 0.02 K/uL (0-0.2); Basophils % (auto) 0.4 %; Eosinophils # (auto) 0.06 K/uL (0-0.5); Eosinophils % (auto) 1.2 %; Hematocrit (blood only) 42.7 % (42-52); Immature Granulocytes # (auto) 0.01 K/uL (0.00-0.02); Immature Granulocytes % (auto) 0.2 %; Lymphocytes % (auto) 16.2 %; Mean Corpuscular Hemoglobin 32.3 pg (25-34); Mean Corpuscular Hgb Conc 32.8 g/dL (32-36); Mean Corpuscular Volume 98.6 fL (80-100); Mean Platelet Volume 10.1 fL (7.4-10.4); Monocytes # (auto) 0.49 K/uL (0.11-0.59); Monocytes % (auto) 9.9 %; Neutrophils # (auto) 3.57 K/uL (1.4-6.5); Neutrophils % (auto) 72.1 %; Platelet Count 146 K/uL (130-400); RDW Coefficient of Variation 13.3 % (11.5-14.5); RDW Standard Deviation 48.4 fL (36.4-46.3); Red Blood Count 4.33 M/uL (4.7-6.1); White Blood Count 4.95 K/uL (4.8-10.8)
[2022-02-12 13:32] LABS: Partial Thromboplastin Ratio 1.1; Partial Thromboplastin Time 31.2 Seconds (21.0-31.0); Prothrombin Time 10.4 Seconds (9.0-12.0)
[2022-02-12 13:46] LABS: Albumin Globulin Ratio 1.3 (0.9-2); Albumin Level 3.9 gm/dl (3.4-5.0); Bilirubin,Total 0.3 mg/dl (0.2-1.0); Creatinine Clr Calc Pharmacy 61.6 ml/min; Est GFR (African American) 62.8 ml/min; Est GFR (Non-African American) 54.2 ml/min; Globulin 2.9 gm/dl (2.5-4.0); Magnesium 1.8 mg/dl (1.7-2.4); Potassium 4.1 mmol/L (3.5-5.1); Total Protein 6.8 gm/dl (6.0-8.3)
--- NOTE | 2022-02-12 13:47 | XRay Report ---
SINGLE VIEW CHEST CLINICAL HISTORY: Sepsis. FINDINGS: An AP, portable, upright chest radiograph is compared to study dated 07/01/2021 and correlat ed with chest CT dated 12/21/2021. The examination is degraded by portable technique and apical lordoti c positioning. The heart is mildly enlarged. The pulmonary vasculature is noncongested. There are low lung volumes with mild bibasilar atelectasis. The lungs and pleural spaces are otherwise clear. No p neumothorax is seen. The bony thorax is grossly intact. IMPRESSION: No active disease in the chest. ACT 112: Negative or not required by law. Electronically signed by: Emerson Trivedi M.D. 02/12/2022 1:45 PM
--- NOTE | 2022-02-12 13:55 | Electrocardiogram Report ---
Test Reason : Blood Pressure : / mmHG Vent. Rate : 062 BPM Atrial Rate : 062 BPM P-R Int : 140 ms QRS Dur : 092 ms QT Int : 416 ms P-R-T Axes : 055 021 050 degrees QTc Int : 422 ms Normal sinus rhythm Normal ECG When compared with ECG of 15-JAN-2021 10:49, Minimal criteria for Anteroseptal infarct are no longer Present Confirmed by Steve Ulrich ([id number]) on 02/12/2022 1:55:02 PM Referred By: REFERRED SELF Confirmed By:Steve Ulrich
[2022-02-12 13:58] LABS: Appearance Urine Clear (Clear); Bacteria Urine Automated Negative (Negative); Bilirubin Urine Negative (Negative); Blood Urine 3+ (Negative); Color Urine Orange; Epithelial Cell Urine Auto 20-30 /lpf (0-5); Glucose Urine UA Negative (Negative); Ketones Urine Negative (Negative); Leukocyte Esterase Urine 2+ (Negative); Nitrite Urine Negative (Negative); Protein Urine 1+ (Negative); RBC Urine Automated >30 /hpf (0-4); Specific Gravity Urine 1.007 (1.000-1.030); Urobilinogen Urine Negative (Negative)
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
--- NOTE | 2022-02-12 16:01 | Ultrasound Report ---
RENAL ULTRASOUND CLINICAL HISTORY: flank pain, hx of gout, ? uric acid stones COMPARISON STUDY: CT of the abdomen and pelvis December 21, 2021. Renal ultrasound March 06, 2021. TECHNIQUE: Sonography of the kidneys and the urinary bladder was performed. FINDINGS: The right kidney measures 11.9 cm in maximal dimension and the left measures 12.2 cm. Renal echogenicity, size and cortical thickness are normal. There is no hydronephrosis. No renal calculus or mass is identified by sonography. A 5 mm echogenic focus within the right renal cortex is similar to ultrasound of March 06, 2021. Key balloon is present within the bladder. Bladder wall thickening i s noted. This is accentuated by underdistention. IMPRESSION: 1. Normal sonographic appearance of the kidneys. No hydronephrosis. 2. Redemonstration bladder wall thickening, accentuated by underdistention. Key balloon within the bladder. ACT 112: Negative or not required by law. Electronically signed by: Jaguar Mckeon M.D. 02/12/2022 4:00 PM
[2022-02-12] MEDS ORDERED: HYDROCORTISONE ACETATE 25 MG SUPP PR PRN (17:06)
[2022-02-12] MEDS ORDERED: VANCOMYCIN HCL 1,250 MG in SODIUM CHLORIDE 0.9% 500 ML IV SCH (17:06)
[2022-02-12] MEDS ORDERED: ONDANSETRON INJ 2 MG/ML 2 ML VIAL IV PRN (17:06)
[2022-02-12] MEDS ORDERED: POLYETHYLENE (MIRALAX) 17 GM PACK PO PRN (17:06)
[2022-02-12] MEDS ORDERED: BACLOFEN 10 MG TAB PO PRN (17:06)
[2022-02-12] MEDS ORDERED: LIDOCAINE 5% 1 PATCH TD PRN (17:06)
[2022-02-12] MEDS ORDERED: METAXALONE 800 MG TABLET PO PRN (17:06)
[2022-02-12] MEDS ORDERED: ACETAMINOPHEN 325 MG TAB PO PRN (17:06)
[2022-02-12] MEDS: LACTATED RINGER'S 1,000 ML IV SCH (17:13)
--- NOTE | 2022-02-12 20:42 | Pharmacy Report ---
Pharmacy Vanc AUC Short Note - Date of Service February 12, 2022 - Assessment & Plan Assessment 61 year old M receiving IV Vancomycin for treatment of pyelonephritis. Pertinent microbiologic data includes: culture growing - Coag neg Staph (resistant to oxacillin, tetracycline, and Bactrim). Day # 1 of antimicrobial therapy. * Patient received Vancomycin 2000mg (~22mg/kg) IV x 1 as a loading dose in the ED * Renal function appears at baseline. sCr = 1.41 mg/dL, CrCl ~62 mL/min. Plan Vancomycin * AUC/KIMBERLY is the preferred PK/PD target for vancomycin * AUC guided dosing is effective and associated with decreased risk of nephrotoxicity compared to traditional trough targets * According to [facility], Vancomycin 1250mg (~14mg/kg) IV q18 is predicted to achieve target AUC/KIMBERLY of 400-600 mg/L.hr and may be associated with a 13 % risk of nephrotoxicity * Trough level ordered for: 02/14/22 @ 1730 (prior to 3rd dose and therefore not reflective of steady state, but want to assess dosing regimen earlier) Pharmacy will continue to follow and will adjust dose/frequency as necessary. Thank you.
[2022-02-12] MEDS: HYDROCODONE/ACETAMINOPHEN 7.5/325MG TAB PO PRN (20:59)
[2022-02-12] MEDS: ESCITALOPRAM OXALATE 20 MG TAB PO SCH (21:00)
[2022-02-12] MEDS: busPIRone 15 MG TAB PO SCH (21:00)
[2022-02-12] MEDS: ATORVASTATIN 10 MG TAB PO SCH (21:00)
[2022-02-12] MEDS: traZODone HCL 50 MG TAB PO SCH (21:01)
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
[2022-02-13] MEDS: LACTATED RINGER'S 1,000 ML IV SCH ×2 (05:43→17:15)
[2022-02-13] MEDS: VANCOMYCIN HCL 1,250 MG in SODIUM CHLORIDE 0.9% 250 ML IV SCH ×2 (05:48→23:14)
[2022-02-13 05:57] LABS: Basophils # (auto) 0.01 K/uL (0-0.2); Basophils % (auto) 0.2 %; Eosinophils # (auto) 0.12 K/uL (0-0.5); Eosinophils % (auto) 2.9 %; Hemoglobin 13.9 g/dL (14.0-18.0); Immature Granulocytes # (auto) 0.01 K/uL (0.00-0.02); Immature Granulocytes % (auto) 0.2 %; Lymphocytes # (auto) 0.73 K/uL (1.2-3.4); Lymphocytes % (auto) 17.8 %; Mean Corpuscular Hemoglobin 32.6 pg (25-34); Mean Corpuscular Hgb Conc 33.9 g/dL (32-36); Mean Platelet Volume 10.5 fL (7.4-10.4); Monocytes # (auto) 0.71 K/uL (0.11-0.59); Monocytes % (auto) 17.3 %; Neutrophils # (auto) 2.53 K/uL (1.4-6.5); Neutrophils % (auto) 61.6 %; Platelet Count 142 K/uL (130-400); RDW Coefficient of Variation 13.4 % (11.5-14.5); RDW Standard Deviation 46.6 fL (36.4-46.3); Red Blood Count 4.27 M/uL (4.7-6.1); White Blood Count 4.11 K/uL (4.8-10.8)
[2022-02-13 06:41] LABS: Anion Gap 8 (3-11); BUN Creatinine Ratio 10.2 (10-20); Blood Urea Nitrogen 12 mg/dl (6-23); Carbon Dioxide 25 mmol/L (21-32); Chloride 105 mmol/L (98-107); Creatinine Clr Calc Pharmacy 72.2 ml/min; Est GFR (African American) 76.7 ml/min; Est GFR (Non-African American) 66.2 ml/min; Glucose 89 mg/dl (70-99(Fasting)); Sodium 138 mmol/L (136-145)
[2022-02-13] MEDS: CHOLECALCIFEROL 1,000 UNITS 25 MCG TAB PO SCH (09:37)
[2022-02-13] MEDS: allopurinoL 100 MG TAB PO SCH (09:37)
[2022-02-13] MEDS: busPIRone 15 MG TAB PO SCH ×3 (09:37→20:53)
[2022-02-13] MEDS: ENOXAPARIN 150 MG/ML SYR SQ SCH (09:38)
[2022-02-13] MEDS: CYANOCOBALAMIN (B-12) 500 MCG TABLET PO SCH (09:38)
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
[2022-02-13] MEDS: HYDROCODONE/ACETAMINOPHEN 7.5/325MG TAB PO PRN ×2 (13:42→20:52)
[2022-02-13] MEDS: ATORVASTATIN 10 MG TAB PO SCH (20:53)
[2022-02-13] MEDS: ESCITALOPRAM OXALATE 20 MG TAB PO SCH (20:54)
[2022-02-13] MEDS: traZODone HCL 50 MG TAB PO SCH (20:54)
[2022-02-14] MEDS: LACTATED RINGER'S 1,000 ML IV SCH (05:04)
[2022-02-14] MEDS: allopurinoL 100 MG TAB PO SCH (09:05)
[2022-02-14] MEDS: CHOLECALCIFEROL 1,000 UNITS 25 MCG TAB PO SCH (09:05)
[2022-02-14] MEDS: busPIRone 15 MG TAB PO SCH ×3 (09:05→21:05)
[2022-02-14] MEDS: CYANOCOBALAMIN (B-12) 500 MCG TABLET PO SCH (09:06)
[2022-02-14] MEDS: ENOXAPARIN 150 MG/ML SYR SQ SCH (09:06)
[2022-02-14] MEDS: LIDOCAINE 2% JELLY 5 ML TUBE EXT PRN (09:08)
[2022-02-14 09:13] LABS: Hematocrit (blood only) 41.7 % (42-52); Mean Corpuscular Hemoglobin 32.3 pg (25-34); Mean Corpuscular Hgb Conc 33.6 g/dL (32-36); Mean Corpuscular Volume 96.1 fL (80-100); Mean Platelet Volume 10.2 fL (7.4-10.4); Platelet Count 150 K/uL (130-400); RDW Coefficient of Variation 13.3 % (11.5-14.5); RDW Standard Deviation 47.4 fL (36.4-46.3); Red Blood Count 4.34 M/uL (4.7-6.1); White Blood Count 3.31 K/uL (4.8-10.8)
[2022-02-14 09:32] LABS: BUN Creatinine Ratio 11.2 (10-20); Creatinine Clr Calc Pharmacy 79.6 ml/min; Est GFR (African American) 86.4 ml/min; Est GFR (Non-African American) 74.5 ml/min; Potassium 4.2 mmol/L (3.5-5.1)
[2022-02-14] MEDS: HYDROCODONE/ACETAMINOPHEN 7.5/325MG TAB PO PRN ×2 (11:31→21:03)
[2022-02-14] MEDS ORDERED: VANCOMYCIN TROUGH ONE (17:30)
[2022-02-14 18:08] LABS: Creatinine Clr Calc Pharmacy 61.7 ml/min; Est GFR (African American) 63.5 ml/min; Est GFR (Non-African American) 54.8 ml/min
[2022-02-14] MEDS: VANCOMYCIN HCL 1,250 MG in SODIUM CHLORIDE 0.9% 250 ML IV SCH (18:40)
--- NOTE | 2022-02-14 20:06 | Pharmacy Report ---
Pharmacy Vanc AUC Short Note - Date of Service February 14, 2022 - Assessment & Plan Assessment 62 year old M receiving VANCOMYCIN for treatment of UTI/pyelonephritis. Day #3 of antimicrobial therapy. Plan Vancomycin * AUC/KIMBERLY is the preferred PK/PD target for vancomycin * AUC guided dosing is effective and associated with decreased risk of nephrotoxicity compared to traditional trough targets * Trough level of 6 mcg/mL correlates to a predicted AUC of ~354 mg/L.hr. * Change to 1250 mg IV every 12 hours. This new regimen is predicted to achieve target AUC/KIMBERLY of 400-600 mg/L.hr and may be associated with a 14 % risk of nephrotoxicity * Trough level ordered for: 02/16 @1035 Pharmacy will continue to follow and will adjust dose/frequency as necessary. Thank you.
--- NOTE | 2022-02-14 20:52 | Hospitalist Progress Note ---
Date of Service February 14, 2022 Assessment & Plan (1) Pyelonephritis: Plan: Left-sided. Improved. 2nd Coag neg staph. Currently on IV vanco and clinically improving. Renal u/s this admission without hydronephrosis. CT abd/pelvis in 12/2021 without any kidney stones; defer on CT. Had coag neg staph UTI in December - thus, could be harboring infection in the prostate; would be in favor of lengthy course of abx for this recurrent infection. See #2 re: blood cx's. (2) Bacteremia: Plan: 10/20 blood cx's + for GPC clusters. this could be pathogenic if ID shows it is coag neg staph. If it is indeed TOUR CONDUCTOR would Rx for 14 days with IV therapy. Repeat blood cx's obtained this am. Could consider echo but doubt SBE. (3) Acute kidney injury: Plan: Peak Cr 1.4, now 1.1 2nd to #1. (4) History of prostate cancer: Plan: Prostatectomy in 2017 with radiation and Lupron in 2019. [place] [facility] [place] 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 S/p cystoscopy and fulguration October 2021. Performs self-cathing at home for incomplete voiding. Chaney placed at time of this admission. Continue chaney for now; d/c at time of discharge home? (5) Chronic anticoagulation: Plan: Recurrent DVT/PEs requiring lifelong anticoagulation. No known genetic/heredi tary hypercoagulable state. Was on warfarin until October when he underwent cystoscopy, and was switched to Lovenox and is to be on this for the next 2 months per review of 12/28/21 anticoagulation clinic notes. Will ultimately be switched back to warfarin down the line. For now continue Lovenox 1.5 mg/kg once daily (130mg daily). (6) Chronic pain not due to malignancy: Plan: Previous service, with shrapnel in back, leg. Continue baclofen, skelaxin, hydrocodone, lidocaine patches prn for pain. (7) Hyperlipidemia: Plan: Continue atorvastatin 10 mg HS. (8) Anxiety: Plan: Continue BuSpar 15 mg TID, Lexapro 20 mg HS, trazodone 50 mg HS. (9) Radiation proctitis: Plan: S/P hyperbaric oxygen therapy Controlled (10) Chaney catheter in place: (11) Hyponatremia: Plan: Na 133 likely due to volume depletion at time of admission. Resolved s/p isotonic fluids. d/c IV fluids today. Plan: , son updated today Admission and Anticipated Discharge Date Admission Date: February 12, 2022 Subjective patient reports feeling much better in comparison to admission L flank pain essentially resolved mild suprapubic pain only no N/V eating well had slight hematuria when ambulating today but urine has already cleared son was at bedside, and during my encounter the pt called his and she was on speaker phone listening to the conversation Review of Systems Review of Systems: gen - no fevers or chills, eating well, no fatigue cv - no cp, no orthopnea pulm - no cough or dyspnea GI - no upper abdominal pain Physical Exam Physical Exam: gen - NAD, looks good mouth - MMM neck - no JVD heart - RRR, s1 s2, no murmur lungs - CTA b/l back - no CVA tenderness to palpation abd - soft NT ND BS+ ext - no edema, pulses 2+ b/l - chaney in place, no hematuria Results & Data Results & Data ([facility]) Vital Signs (Past 12 Hours) Vital Signs Temp Pulse Resp BP Pulse Ox 02/14/22 14:03 36.7 C 67 16 116/66 94 Laboratory Results Laboratory Results - last 24 hr 02/14/22 02/14/22 02/14/22 08:48 08:48 17:19 WBC 3.31 L RBC 4.34 L Hgb 14.0 Hct 41.7 L MCV 96.1 MCH 32.3 MCHC 33.6 RDW Std Deviation 47.4 H RDW Coeff of Mary Kate 13.3 Plt Count 150 MPV 10.2 Sodium 139 Potassium 4.2 Chloride 105 Carbon Dioxide 28 Anion Gap 6 BUN 12 Creatinine 1.07 Est Cr Clr Drug Dosing 79.6 Est GFR ( Amer) 86.4 Est GFR (Non-Af Amer) 74.5 BUN/Creatinine Ratio 11.2 Glucose 108 H Calcium 9.0 Vancomycin Trough 6.0 L 02/14/22 17:19 WBC RBC Hgb Hct MCV MCH MCHC RDW Std Deviation RDW Coeff of Mary Kate Plt Count MPV Sodium Potassium Chloride Carbon Dioxide Anion Gap BUN Creatinine 1.38 D Est Cr Clr Drug Dosing 61.7 Est GFR ( Amer) 63.5 Est GFR (Non-Af Amer) 54.8 BUN/Creatinine Ratio Glucose Calcium Vancomycin Trough Diagnostic Findings admission blood cx's - 1/4 + for GPC in clusters pre-admission urine cx - coag neg staph admission urine cx - staph, CFU - likely to be TOUR CONDUCTOR PG Care Time/CCT Total # of Minutes Spent Total Time Spent with Patient: Total time spent is greater than 50% in coordination of care (as documented) at patient's floor/unit and/or counseling patient: Coding Level of Care Code 57501 Subseq Hosp Care Lvl 2 Diagnoses Pyelonephritis N12 Acute kidney injury N17.9 History of prostate cancer Z85.46 Chronic anticoagulation Z79.01 Chronic pain not due to malignancy G89.29 Hyperlipidemia E78.5 Hyperlipidemia type: unspecified Anxiety F41.9 Radiation proctitis K62.[address] Z97.8 Hyponatremia E87.1 Bacteremia R78.81 (1) Hyperlipidemia Hyperlipidemia type: unspecified Qualified Code(s): E78.5 - Hyperlipidemia, unspecified
[2022-02-14] MEDS: ATORVASTATIN 10 MG TAB PO SCH (21:04)
[2022-02-14] MEDS: traZODone HCL 50 MG TAB PO SCH (21:04)
[2022-02-14] MEDS: ESCITALOPRAM OXALATE 20 MG TAB PO SCH (21:04)
[2022-02-15] MEDS: VANCOMYCIN HCL 1,250 MG in SODIUM CHLORIDE 0.9% 250 ML IV SCH ×2 (05:59→17:51)
[2022-02-15] MEDS: CYANOCOBALAMIN (B-12) 500 MCG TABLET PO SCH (07:38)
[2022-02-15] MEDS: ENOXAPARIN 150 MG/ML SYR SQ SCH (07:38)
[2022-02-15] MEDS: allopurinoL 100 MG TAB PO SCH (07:38)
[2022-02-15] MEDS: busPIRone 15 MG TAB PO SCH ×3 (07:38→20:52)
[2022-02-15] MEDS: CHOLECALCIFEROL 1,000 UNITS 25 MCG TAB PO SCH (07:38)
[2022-02-15 07:43] LABS: Hematocrit (blood only) 40.6 % (42-52); Hemoglobin 13.4 g/dL (14.0-18.0); Mean Corpuscular Hemoglobin 31.9 pg (25-34); Mean Corpuscular Volume 96.7 fL (80-100); Mean Platelet Volume 10.5 fL (7.4-10.4); Platelet Count 164 K/uL (130-400); RDW Coefficient of Variation 13.4 % (11.5-14.5); RDW Standard Deviation 47.1 fL (36.4-46.3); White Blood Count 3.97 K/uL (4.8-10.8)
[2022-02-15 08:18] LABS: BUN Creatinine Ratio 12.5 (10-20); Calcium 8.8 mg/dl (8.5-10.1); Creatinine Clr Calc Pharmacy 81.9 ml/min; Est GFR (African American) 89.4 ml/min; Est GFR (Non-African American) 77.1 ml/min; Potassium 4.3 mmol/L (3.5-5.1)
[2022-02-15] MEDS: HYDROCODONE/ACETAMINOPHEN 7.5/325MG TAB PO PRN ×2 (14:14→20:53)
[2022-02-15] MEDS: ATORVASTATIN 10 MG TAB PO SCH (20:52)
[2022-02-15] MEDS: traZODone HCL 50 MG TAB PO SCH (20:53)
[2022-02-15] MEDS: ESCITALOPRAM OXALATE 20 MG TAB PO SCH (20:53)
--- NOTE | 2022-02-16 00:19 | Hospitalist Progress Note ---
Date of Service February 16, 2022 Assessment & Plan (1) Pyelonephritis: Plan: Left-sided. 2nd Coag neg staph. Currently on IV vanco and clinically improving. Day #4 of IV vanco. Renal u/s this admission without hydronephrosis. CT abd/pelvis in 12/2021 without any kidney stones; defer on CT. Had coag neg staph UTI in December. Plan to Rx 10-14 days in total. I spoke with Satinder RIVAS by phone in [place]. IV daptomycin is reasonable choice for his UTI/pyelonephritis. Adequate kidney penetration. Stop IV vanco tonight. Start once daily IV daptomycin in am tomorrow. Would plan on total 10 days of IV dapto starting tomorrow. Will need social work assistance to determine if this can be given outside the hospital either at home or the [facility]. Other option would be zyvox but we don't have sensitivity information on his coag neg staph strain to ensure it is indeed sensitive to such. (would need to send that out) Would simply Rx with 10 days of IV dapto (6mg/kg daily). Of note - he is s/p prostatectomy in the past thus no chance of any prostatitis. (2) Bacteremia: Plan: 10/20 blood cx's + for GPC clusters from the admission cultures. pre-mclean report today is that the 1 culture is due to anaerobic GPC. this would be aerococcus or other skin sarah. follow this culture but suspect it is contaminant. repeat blood cx's from 02/14 are negative. (3) Acute kidney injury: Plan: Peak Cr 1.4, now 1.1 2nd to #1. (4) History of prostate cancer: Plan: Prostatectomy in 2017 with radiation and Lupron in 2019. Follows with [facility] [place] urology. 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 S/p cystoscopy and fulguration October 2021. Performs self-cathing at home for incomplete voiding. Chaney placed at time of this admission. Continue chaney for now; d/c at time of discharge home and revert back to I/O straight cathing. (5) Chronic anticoagulation: Plan: Recurrent DVT/PEs requiring lifelong anticoagulation. No known genetic/hereditary hypercoagulable state. Was on warfarin until October when he underwent cystoscopy, and was switched to Lovenox and is to be on this for the next 2 months per review of 12/28/21 anticoagulation clinic notes. Will ultimately be switched back to warfarin down the line. For now continue Lovenox 1.5 mg/kg once daily (130mg daily). (6) Chronic pain not due to malignancy: Plan: Previous service, with shrapnel in back, leg. Continue baclofen, skelaxin, hydrocodone, lidocaine patches prn for pain. (7) Hyperlipidemia: Plan: Continue atorvastatin 10 mg HS. (8) Anxiety: Plan: Continue BuSpar 15 mg TID, Lexapro 20 mg HS, trazodone 50 mg HS. (9) Radiation proctitis: Plan: S/P hyperbaric oxygen therapy Controlled (10) Chaney catheter in place: Plan: as above (11) Hyponatremia: Plan: Na 133 likely due to volume depletion at time of admission. Resolved s/p isotonic fluids. IV fluids have been d/c. Plan: , son updated yesterday pt's brother updated at bedside dispo planning - hopeful for home IV daptomycin (or at [facility]) post- discharge would need u-s guided peripheral IV for such Admission and Anticipated Discharge Date Admission Date: February 12, 2022 Subjective patient feeling well left flank pain nearly resolved suprapubic pain resolved eating well good energy feels essentially back to normal chaney draining clear urine; no hematuria Review of Systems Review of Systems: gen - no fevers, no chills cv - no cp pulm - no dyspnea GI - no diarrhea Physical Exam Physical Exam: gen - NAD, looks great mouth - MMM neck - no JVD heart - RRR, s1 s2, no murmur lungs - CTA b/l back - no CVA tenderness to palpation b/l (scant on left at most) abd - soft NT ND BS+ ext - no edema, pulses 2+ b/l - chaney in place Results & Data Results & Data ([facility]) Vital Signs (Past 12 Hours) Vital Signs Temp Pulse Resp BP BP Pulse Ox 02/15/22 22:12 36.7 C 73 16 129/74 95 02/15/22 14:47 36.8 C 68 16 129/72 94 Laboratory Results Laboratory Results - last 24 hr 02/15/22 02/15/22 07:04 07:04 WBC 3.97 L RBC 4.20 L Hgb 13.4 L Hct 40.6 L MCV 96.7 MCH 31.9 MCHC 33.0 RDW Std Deviation 47.1 H RDW Coeff of Mary Kate 13.4 Plt Count 164 MPV 10.5 H Sodium 139 Potassium 4.3 Chloride 106 Carbon Dioxide 28 Anion Gap 5 BUN 13 Creatinine 1.04 D Est Cr Clr Drug Dosing 81.9 Est GFR ( Amer) 89.4 Est GFR (Non-Af Amer) 77.1 BUN/Creatinine Ratio 12.5 Glucose 97 Calcium 8.8 PG Care Time/CCT Total # of Minutes Spent Total Time Spent with Patient: Total time spent is greater than 50% in coordination of care (as documented) at patient's floor/unit and/or counseling patient: Coding Level of Care Code 87010 Subseq Hosp Care Lvl 2 Diagnoses Pyelonephritis N12 Bacteremia R78.81 Acute kidney injury N17.9 History of prostate cancer Z85.46 Chronic anticoagulation Z79.01 Chronic pain not due to malignancy G89.29 Hyperlipidemia E78.5 Hyperlipidemia type: unspecified Anxiety F41.9 Radiation proctitis K62.[address] Z97.8 Hyponatremia E87.1 (1) Hyperlipidemia Hyperlipidemia type: unspecified Qualified Code(s): E78.5 - Hyperlipidemia, unspecified
[2022-02-16] MEDS ORDERED: VANCOMYCIN TROUGH SCH (05:30)
[2022-02-16] MEDS ORDERED: VANCOMYCIN HCL 1,250 MG in SODIUM CHLORIDE 0.9% 250 ML IV SCH (06:00)
[2022-02-16 07:09] LABS: Hemoglobin 13.1 g/dL (14.0-18.0); Mean Corpuscular Hemoglobin 32.3 pg (25-34); Mean Corpuscular Hgb Conc 32.8 g/dL (32-36); Mean Corpuscular Volume 98.5 fL (80-100); Mean Platelet Volume 10.3 fL (7.4-10.4); Platelet Count 177 K/uL (130-400); RDW Coefficient of Variation 13.1 % (11.5-14.5); Red Blood Count 4.06 M/uL (4.7-6.1); White Blood Count 5.24 K/uL (4.8-10.8)
[2022-02-16 07:35] LABS: BUN Creatinine Ratio 14.9 (10-20); Calcium 8.7 mg/dl (8.5-10.1); Creatinine Clr Calc Pharmacy 74.7 ml/min; Potassium 4.1 mmol/L (3.5-5.1)
[2022-02-16 07:56] VITALS: TEMP 98.8
[2022-02-16] MEDS ORDERED: DAPTOmycin 475 MG in SYRINGE 0 ML IV SCH (08:00)
[2022-02-16] MEDS: HYDROCODONE/ACETAMINOPHEN 7.5/325MG TAB PO PRN (08:37)
[2022-02-16] MEDS: LIDOCAINE 2% JELLY 5 ML TUBE EXT PRN (08:37)
[2022-02-16] MEDS: busPIRone 15 MG TAB PO SCH ×2 (08:38→15:16)
[2022-02-16] MEDS: CHOLECALCIFEROL 1,000 UNITS 25 MCG TAB PO SCH (08:38)
[2022-02-16] MEDS: allopurinoL 100 MG TAB PO SCH (08:38)
[2022-02-16] MEDS: CYANOCOBALAMIN (B-12) 500 MCG TABLET PO SCH (08:38)
[2022-02-16] MEDS: ENOXAPARIN 150 MG/ML SYR SQ SCH (08:39)
[2022-02-16 13:39] VITALS: BP 124/73; PULSE 71; O2SAT 93
--- NOTE | 2022-02-16 13:44 | Discharge Summary ---
Date of Service February 16, 2022 Admission HPI Per Admitting Provider Mr. Pollack is a 61-year-old male with a past medical history significant for prostate cancer s/p prostatectomy and radiation, urinary retention, DVT/PE on lifelong anticoagultion, hyperlipidemia, chronic pain, anxiety and depression who presents today for evaluation of fever/chills and flank pain. He presented to the ED 2 days ago, 02/10 because of dysuria and difficulty self cathing. At that time a Chaney catheter was placed with some difficulty, urinalysis was indicative of infection, urine cx ordered, and he was discharged on Bactrim. Today, patient received a call as his urine culture came back which is growing coag negative staph resistant to multiple antibiotics, requiring IV abx. Pharmacy suggested vancomycin. Since discharge from ED on Tuesday, Jaki Casper states he has had ongoing fevers of up to 105 and has generally felt unwell with fatigue and left flank pain. Left flank pain is not made better or worse with movement, is fairly constant feels like a stabbing or aching. He has been taking his hydrocodone as needed and hydrating, 40 to 60 ounces of water a day. He did initially have some blood with urination on Tuesday when he was self cathing, however a Chaney was placed in the ED, still in place, no complaints of hematuria since then. He is otherwise without chest pain, palpitation, shortness of breath, cough, lower extremity edema, unilateral swelling, calf pain, abdominal pain, nausea, vomiting, diarrhea, constipation. No personal history of kidney stones, but does have a family and personal history of gout, and as stated above is chronic urinary retention as well as hematuria due to radiation cystitis complicated by the need for lifelong anticoagulation for recurrent DVT/PEs. In ED, his vital signs are within normal limits and stable, labs largely unremarkable, his sodium is 133, his creatinine is 1.4, increased from October when it was 1.17. Lactate 0.9. UA today with white blood cells, leuk esterase, red blood cells, and 5-10 hyaline cast. COVID-negative. Blood cultures and urine cultures repeated today, and pending. Principal Diagnosis 1. Left sided pyelonephritis 2. Recent h/o Coagulase Neg Staph UTI in December 2021 3. JOSE -- resolved Discharge Exam GENERAL: 62 yo well-developed, well-nourished WM. NAD. LUNGS: Clear to auscultation bilaterally. No W/R/R. CARDIOVASCULAR: Regular rate and rhythm. No M/G/R. No JVD. ABDOMEN: Soft, non-tender and non-distended. BS normal x 4 quad. : Chaney in place, draining clear yellow urine EXTREMITIES: No edema. Non-tender. Peripheral pulses +2/4. NEUROLOGIC: A&O x3. PSYCHIATRIC: Cooperative. Appropriate mood and affect. SKIN: Warm, dry, intact. No rashes or lesions. Discharge Data Allergies Allergy/AdvReac Type Severity Reaction Status Date / Time No Known Allergies Allergy Verified 02/10/22 09:04 Consultations 02/12/22 14:52 ED Decision to Admit Stat 02/12/22 17:06 Consult Urology Routine Ordered Studies Chest X-Ray 02/12/22 12:55 SINGLE VIEW CHEST CLINICAL HISTORY: Sepsis. FINDINGS: An AP, portable, upright chest radiograph is compared to study dated 07/01/2021 and correlated with chest CT dated 12/21/2021. The examination is degraded by portable technique and apical lordotic positioning. The heart is mildly enlarged. The pulmonary vasculature is noncongested. There are low lung volumes with mild bibasilar atelectasis. The lungs and pleural spaces are otherwise clear. No pneumothorax is seen. The bony thorax is grossly intact. IMPRESSION: No active disease in the chest. ACT 112: Negative or not required by law. Electronically signed by: Emerson Trivedi M.D. 02/12/2022 1:45 PM Renal Ultrasound 02/12/22 15:00 RENAL ULTRASOUND CLINICAL HISTORY: flank pain, hx of gout, ? uric acid stones COMPARISON STUDY: CT of the abdomen and pelvis December 21, 2021. Renal ultrasound March 06, 2021. TECHNIQUE: Sonography of the kidneys and the urinary bladder was performed. FINDINGS: The right kidney measures 11.9 cm in maximal dimension and the left measures 12.2 cm. Renal echogenicity, size and cortical thickness are normal. There is no hydronephrosis. No renal calculus or mass is identified by sonography. A 5 mm echogenic focus within the right renal cortex is similar to ultrasound of March 06, 2021. Chaney balloon is present within the bladder. Bladder wall thickening is noted. This is accentuated by underdistention. IMPRESSION: 1. Normal sonographic appearance of the kidneys. No hydronephrosis. 2. Redemonstration bladder wall thickening, accentuated by underdistention. Chaney balloon within the bladder. ACT 112: Negative or not required by law. Electronically signed by: Jaguar Mckeon M.D. 02/12/2022 4:00 PM Hospital Course (1) Pyelonephritis: Left-sided. -Secondary to Coag neg staph UTI that he had in December 2021 -Empirically started on IV vanco and clinically improving, 02/15 was day #4 of IV vanco. -Transitioned to IV Daptomycin 02/16 -Renal u/s this admission without hydronephrosis. -CT abd/pelvis in 12/2021 without any kidney stones; defer on CT. -Will transition to oral Zyvox 600mg BID x 10 more days for him to complete as an outpatient (for total course of 14 days) -Of note - he is s/p prostatectomy in the past thus no chance of any prostatitis. (2) Bacteremia: -10/20 blood cx's + for GPC clusters from the admission cultures. -pre-mclean report today is that the 1 culture is due to anaerobic GPC. -this would be aerococcus or other skin sarah. -Culture resulted as finegoldia magna which can be isolated from skin and is often regarded as a contaminant in cultures -repeat blood cx's from 02/14 are negative. not treating for bacteremia (3) Acute kidney injury: Peak Cr 1.4, now 1.1 2nd to #1--resolved (4) History of prostate cancer: Prostatectomy in 2017 with radiation and Lupron in 2019. -[place] [facility] [place]. 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 -S/p cystoscopy and fulguration October 2021. -Performs self-cathing at home for incomplete voiding. Chaney placed at time of this admission. -Continue chaney for now, voiding trial to be completed as outpatient, appt scheduled w/ Dr. Leonard on 02/18 -Trial of Flomax to relax smooth muscle (5) Chronic anticoagulation: Recurrent DVT/PEs requiring lifelong anticoagulation. No known genetic/ hereditary hypercoagulable state. -Was on warfarin until October when he underwent cystoscopy, and was switched to Lovenox and is to be on this for the next 2 months per review of 12/28/21 anticoagulation clinic notes. -Will ultimately be switched back to warfarin down the line. -For now continue Lovenox 1.5 mg/kg once daily (130mg daily). (6) Chronic pain not due to malignancy: Previous service, with shrapnel in back, leg. -Continue baclofen, skelaxin, hydrocodone, lidocaine patches prn for pain. (7) Hyperlipidemia: Continue atorvastatin 10 mg HS. (8) Anxiety: Continue BuSpar 15 mg TID, Lexapro 20 mg HS, trazodone 50 mg HS. (9) Radiation proctitis: S/P hyperbaric oxygen therapy Controlled (10) Hyponatremia: Na 133 likely due to volume depletion at time of admission. Resolved s/p isotonic fluids. IV fluids have been d/c. At this time, pt is medically and hemodynamically stable for discharge home with therapy as outlined above. He is scheduled to f/u with urology on 02/18 for voiding trial. Complete course of antibiotics. Follow up with primary care provider within 1 week of discharge. Plan of care has been d/w Dr. Toni Dunham who has also seen and evaluated this patient prior to discharge. Total Time Total Time Spent Total Time Spent (In Minutes): >30 minutes Discharge Plan Discharge Items Patient Disposition: Home - Self-Care Reason For Visit: UTI, COAG NEG STAPH W/ MULTIPLE RESISTANCE Discharge Diagnosis: UTI Activity: Resume your previous activity Non-emergency contact: Primary Care Provider and Urologist Call non-emergency contact if: you have any medication questions and your symptoms worsen Follow-up/Referrals: Tripp Carey MD [Primary Care Provider] - 02/23/22 3:00 pm Salo Leonard MD [Physician] - 02/18/22 9:00 am (Keep appt on 02/18 as scheduled) Diet: Regular Addtl Attending Provider Instructions: You were hospitalized due to an infection in your bladder which ascended up into your kidneys. Due to issues with retaining urine in your bladder, a urinary catheter was placed. This will be kept in place until you follow up with your urologist on as scheduled. You were treated with IV antibiotics during your hospital stay but are being tra nsitioned to an oral antibiotic called Zyvox which is to be taken twice a day until it is gone (10 more days). You are due for your next dose on Saturday 02/17 in the morning. Remaining medications can be taken as outlined on your discharge medication reconciliation. We would recommend that you follow up with your primary care provider within 1 week of discharge. In the event of any questions/concerns, please contact the nonemergency number listed on your discharge paperwork. In the event of a medical emergency, call 911. Pending Studies at Discharge: No Stand-Alone Forms: [facility], Smoking Cessation Medications and DC Order Prescriptions: New linezolid [Zyvox] 600 mg tablet 600 mg PO BID Qty: 10 RF: 0 tamsulosin [Flomax] 0.4 mg capsule 0.4 mg PO HS Qty: 30 RF: 0 Continued buspirone 15 mg tablet 15 mg PO TID RF: 0 cholecalciferol (vitamin D3) 1,000 unit capsule 5,000 units PO QAM RF: 0 cyanocobalamin (vitamin B-12) [Vitamin B-12] 250 mcg Tablet 500 mcg PO QAM Qty: 0 RF: 0 multivitamin tablet 1 tab PO QAM Qty: 0 RF: 0 sildenafil (pulm.hypertension) 20 mg tablet 20 mg PO DAILY MDD 100 mg PRN (Reason: Sexual Activity) Qty: 60 RF: 3 trazodone 50 mg tablet 50 mg PO HS Qty: 30 RF: 0 atorvastatin 10 mg tablet 10 mg PO HS Qty: 90 RF: 3 metaxalone [Skelaxin] 800 mg tablet 800 mg PO TID PRN (Reason: Pain) Qty: 30 RF: 1 allopurinol 100 mg tablet 100 mg PO DAILY Qty: 30 RF: 2 colchicine 0.6 mg capsule 0.6 mg PO BID Qty: 30 RF: 2 hydrocodone-acetaminophen 7.5-325 mg tablet See Rx Instructions PO Q8H PRN (Reason: pain) Qty: 90 RF: 0 enoxaparin 150 mg/mL syringe See Rx Instructions subcut Q24H Qty: 20 RF: 1 hydrocortisone acetate [Anusol-HC] 25 mg suppository 25 mg NV BID PRN (Reason: hemorrhoids) Qty: 12 RF: 2 lidocaine [Lidoderm] 5 % adhesive patch,medicated 1 patch Topical DAILY PRN (Reason: Pain) Qty: 30 RF: 11 baclofen 10 mg tablet 10 mg PO HS PRN (Reason: Muscle Spasm) RF: 0 escitalopram oxalate [Lexapro] 20 mg tablet 20 mg PO HS RF: 0 Discontinued cephalexin 500 mg capsule 500 mg PO TID Qty: 21 RF: 0 sulfamethoxazole-trimethoprim [Bactrim DS] 800-160 mg tablet 1 tab PO Q12H 7 Days Qty: 14 RF: 0 Discharge Orders: Discharge Order (Routine); Ordered 02/16/22 Ordered By: Malgorzata Matthews/Other Patient Handouts: Flomax Oral Capsule 0.4 mg, Zyvox Oral Tablet 600 mg, Urinary Tract Infections in Men, UTIs Understanding Admission Data Admit Date/Time: 02/12/22 14:24 Attending Provider: Toni Dunham Admit Provider: Silke Luciano Primary Care Provider: Tripp Carey Other Providers: Emile Watson ; Toni Dunham Other Interventions: Discharge Summary Assessment (RN) Last Done: 02/16/22 15:19 Supervising Physician Co-Signing Physician Notes I supervised Malgorzata Simpson PA-C on this admission. I interviewed and examined the patient independently of her. The plan is as written in the her note except for any following changes/exceptions: 62yo M here with UTI. Will discharge on Zyvox for remaining course. Coding Level of Care Code D/C DAY MANAGEMENT >30 MINS Diagnoses Pyelonephritis N12 Bacteremia R78.81 Acute kidney injury N17.9 History of prostate cancer Z85.46 Chronic anticoagulation Z79.01 Chronic pain not due to malignancy G89.29 Hyperlipidemia E78.5 Hyperlipidemia type: unspecified Anxiety F41.9 Radiation proctitis K62.7 Hyponatremia E87.1
== END 2022-02-16 15:34 | disposition home or self-care (01) | DRG 690 ==
LOC: ED 12:23 → 3E 14:24 → SUATTDRO 14:24 → 3E 16:15

== ENCOUNTER 2023-08-05 16:50 | Observation (INO) ==
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
[2023-08-05 18:15] LABS: Basophils # (auto) 0.01 K/uL (0.00-0.20); Basophils % (auto) 0.3 %; Eosinophils # (auto) 0.09 K/uL (0.00-0.50); Eosinophils % (auto) 2.4 %; Hematocrit (blood only) 43.5 % (42.0-52.0); Hemoglobin 14.9 g/dl (14.0-18.0); Immature Granulocytes # (auto) 0.01 K/uL (0.01-0.20); Immature Granulocytes % (auto) 0.3 %; Lymphocytes # (auto) 0.92 K/uL (1.20-3.40); Lymphocytes % (auto) 24.7 %; Mean Corpuscular Hgb Conc 34.3 g/dL (32.0-36.0); Mean Corpuscular Volume 96.5 fL (80.0-100.0); Mean Platelet Volume 10.9 fL (9.4-12.4); Monocytes # (auto) 0.51 K/uL (0.11-0.59); Monocytes % (auto) 13.7 %; Neutrophils # (auto) 2.19 K/uL (1.40-6.50); Neutrophils % (auto) 58.6 %; Platelet Count 144 K/uL (130-400); RDW Coefficient of Variation 12.9 % (11.5-14.5); Red Blood Count 4.51 M/uL (4.70-6.10); White Blood Count 3.73 K/ul (4.8-10.8)
--- NOTE | 2023-08-05 18:25 | CT Scan Report ---
CT SCAN OF THE BRAIN WITHOUT IV CONTRAST CLINICAL HISTORY: Fall. Headache. COMPARISON STUDY: CT of the brain dated 06/22/2023. TECHNIQUE: Unenhanced axial CT scan of the brain is performed from the vertex to the skull base. A do se lowering technique was utilized adhering to the principles of ALARA. CT DOSE: 547.75 mGy.cm FINDINGS: Brain parenchyma: There is mild age related involutional change. There is no hemorrhage, mass effect, or evidence of acute territorial ischemia by CT criteria. Barillas-white matter differentiation is prese rved. No extra-axial fluid collection is seen. Ventricles, sulci, cisterns: Prominent secondary to involutional change. Intracranial vasculature: There is mild atherosclerotic calcification of the cavernous carotid arteri es. Calvarium: The skeletal structures are osteopenic. No depressed calvarial fracture is seen. Soft tissues: There is right supraorbital soft tissue contusion. Sinuses and mastoids: The visualized paranasal sinuses are clear. The mastoid air cells are well pneu matized. Orbits: The bony orbits are grossly intact. IMPRESSION: There is no hemorrhage, mass effect, or evidence of acute territorial ischemia by CT jese phillips. ACT 112: Negative or not required by law. Electronically signed by: Emerson Trivedi M.D. 08/05/2023 6:23 PM
[2023-08-05 18:28] LABS: Albumin Globulin Ratio 1.4 (0.9-2); Albumin Level 4.3 gm/dl (3.4-5.0); Bilirubin,Total 0.6 mg/dl (0.2-1.0); Calcium 9.3 mg/dl (8.6-10.3); Creatinine Clr Calc Pharmacy 84.1 ml/min; Est GFR (African American) 93.1 ml/min; Est GFR (Non-African American) 80.3 ml/min; Globulin 3.1 gm/dl (2.5-4.0); Magnesium 1.9 mg/dl (1.7-2.4); Potassium 3.7 mmol/L (3.5-5.1); Total Protein 7.4 gm/dl (6.0-8.3)
[2023-08-05 18:33] LABS: Troponin I High Sensitivity 3.4 pg/ml (0-20)
--- NOTE | 2023-08-05 18:33 | XRay Report ---
SINGLE VIEW CHEST CLINICAL HISTORY: Lightheadedness. FINDINGS: An AP, portable, upright chest radiograph is compared to study dated 02/12/2022 and correlat ed with chest CT dated 12/21/2021. The heart is mildly enlarged. The pulmonary vasculature is nonconges cherelle. The lungs and pleural spaces are clear. No pneumothorax is seen. The bony thorax is grossly inta ct. IMPRESSION: No active disease in the chest. ACT 112: Negative or not required by law. Electronically signed by: Emerson Trivedi M.D. 08/05/2023 6:32 PM
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
[2023-08-05] MEDS ORDERED: OPTIRAY 320 500ml IV ONE (22:45)
--- NOTE | 2023-08-05 23:07 | CT Scan Report ---
CT ANGIOGRAM OF THE BRAIN COMBO CLINICAL HISTORY: Loss of coordination. COMPARISON STUDY: CT of the brain performed the same day 08/05/2023. TECHNIQUE: Unenhanced axial CT scan of the brain is performed. Subsequently, following the IV adminis tration of 112 cc of Optiray 320, CT angiogram of the brain was performed from the skull base to the vertex. Images are reviewed in the axial, sagittal, and coronal planes. 3-D MIPS images are created a nd assessed. IV contrast was administered without complication. A dose lowering technique was utiliz ed adhering to the principles of ALARA. FINDINGS: Brain parenchyma: There is moderate age-related involutional change. There is no hemorrhage, mass eff ect, or evidence of acute territorial ischemia by CT criteria. There is no evidence of enhancing mass lesion on the angiogram phase images. No extra-axial fluid collection is seen. Bar[place]-white matter dif ferentiation is preserved. Ventricles, sulci, and cisterns: Normal in configuration. CT angiogram of the brain: The comanche of [place] is developmentally complete. The internal carotid art eries are widely patent, as are the anterior and middle cerebral arteries. The vertebrobasilar system and posterior cerebral arteries are widely patent. The vertebral arteries are codominant. There is n o aneurysm, high-grade stenosis, or focal vessel cutoff identified throughout the intracranial circul ation. Dural sinuses: Clear as visualized. Orbits: The bony orbits are intact. The orbital contents are normal as visualized. Sinuses and mastoids: There is mild mucosal thickening within the maxillary antra in the ethmoid sinu ses. The remaining paranasal sinuses are clear. The mastoid air cells are well pneumatized. Calvarium: Unremarkable. Soft tissues: There is a right supraorbital soft tissue contusion. IMPRESSION: 1. There is no hemorrhage, mass effect, or evidence of acute territorial ischemia by CT criteria. 2. Unremarkable CT angiogram of the brain. ACT 112: Negative or not required by law. Electronically signed by: Emerson Trivedi M.D. 08/05/2023 11:04 PM
--- NOTE | 2023-08-05 23:11 | CT Scan Report ---
CT ANGIOGRAM OF THE NECK COMBO CLINICAL HISTORY: Loss of coordination. COMPARISON STUDY: No priors. TECHNIQUE: Before and following the IV administration of 112 of Optiray 320, CT angiogram of the neck was performed from the aortic arch to the skull base. Images are reviewed in the axial, sagittal, an d coronal planes. 3-D MIPS images are created and assessed. IV contrast was administered without comp lication. All measurements were calculated based on NASCET criteria. A dose lowering technique was u tilized adhering to the principles of ALARA. CT DOSE: 1632.36 mGy.cm FINDINGS: Thoracic aorta: Visualized portions of the thoracic aorta are normal in caliber. The aortic arch demo nstrates standard 3-vessel anatomy. Right carotid arterial system: The right common carotid artery is widely patent, as are the right int ernal and external carotid arteries. Left carotid arterial system: The left common carotid artery is widely patent, as well as the left in ternal and external carotid arteries. Vertebral arteries: The vertebral arteries are widely patent bilaterally and codominant. Subclavian arteries: Widely patent bilaterally. Intracranial vasculature: The visualized intracranial vessels at the skull base are patent. Jugular veins: Widely patent bilaterally. Brain parenchyma: The visualized brain parenchyma the skull base is within normal limits. Lung apices: Partially visualized upper lobe lung parenchyma appears clear. Soft tissues: The visualized pharyngeal soft tissues are normal in appearance noting angiographic pha se technique. The oropharyngeal airway appears widely patent. The salivary and thyroid glands are nor mal in appearance. No cervical lymphadenopathy is seen. Skeletal structures: The visualized calvarium at the skull base appears intact. The imaged cervical s pine is maintained noting mild spondylosis. Sinuses and mastoids: Mild mucosal thickening is seen within the maxillary antra and the ethmoid sinu ses. The mastoid air cells are well pneumatized. IMPRESSION: Unremarkable CT angiogram of the neck. ACT 112: Negative or not required by law. Electronically signed by: Emerson Trivedi M.D. 08/05/2023 11:09 PM
--- NOTE | 2023-08-05 23:23 | Billing Data ---
Date of Service August 05, 2023 Coding Level of Care Code 96120 INT INP/OBS CARE
[2023-08-05] MEDS ORDERED: LIDOCAINE 5% 1 PATCH TD PRN (23:35)
[2023-08-05] MEDS ORDERED: ACETAMINOPHEN 325 MG TAB PO PRN (23:35)
[2023-08-05] MEDS ORDERED: HYDROCORTISONE ACETATE 25 MG SUPP PR PRN (23:35)
[2023-08-05] MEDS ORDERED: ONDANSETRON INJ 2 MG/ML 2 ML VIAL IV PRN (23:35)
[2023-08-05] MEDS ORDERED: HYDROCODONE/ACETAMINOPHEN 7.5/325MG TAB PO PRN (23:35)
[2023-08-05] MEDS ORDERED: METAXALONE 800 MG TABLET PO PRN (23:35)
[2023-08-05] MEDS ORDERED: COLCHICINE 0.6 MG TAB PO PRN (23:58)
[2023-08-06 00:13] LABS: INR 2.2 (0.9-1.1); Prothrombin Time 22.6 Seconds (9.0-12.0)
[2023-08-06 07:05] LABS: INR 2.1 (0.9-1.1); Partial Thromboplastin Ratio 1.4; Partial Thromboplastin Time 38.2 Seconds (21.0-31.0); Prothrombin Time 21.6 Seconds (9.0-12.0)
[2023-08-06 07:26] LABS: Albumin Globulin Ratio 1.5 (0.9-2); Albumin Level 3.9 gm/dl (3.4-5.0); BUN Creatinine Ratio 13.8 (10-20); Bilirubin,Total 0.8 mg/dl (0.2-1.0); Calcium 8.7 mg/dl (8.6-10.3); Creatinine Clr Calc Pharmacy 89.4 ml/min; Est GFR (African American) 100.3 ml/min; Est GFR (Non-African American) 86.5 ml/min; Globulin 2.6 gm/dl (2.5-4.0); Potassium 3.6 mmol/L (3.5-5.1); Total Protein 6.5 gm/dl (6.0-8.3)
--- NOTE | 2023-08-06 07:34 | Electrocardiogram Report ---
Test Reason : Blood Pressure : / mmHG Vent. Rate : 055 BPM Atrial Rate : 055 BPM P-R Int : 146 ms QRS Dur : 098 ms QT Int : 468 ms P-R-T Axes : 065 028 045 degrees QTc Int : 447 ms Sinus bradycardia with Premature supraventricular complexes Possible Lateral infarct , age undetermined Abnormal ECG When compared with ECG of 12-FEB-2022 13:13, Premature supraventricular complexes are now Present Confirmed by Mike Everett ([id number]) on 08/06/2023 7:33:44 AM Referred By: REFERRED SELF Confirmed By:Mike Everett
[2023-08-06] MEDS ORDERED: MULTIVITAMIN TAB PO SCH (09:00)
[2023-08-06] MEDS ORDERED: amLODIPine BESYLATE 5 MG TAB PO SCH (09:00)
[2023-08-06] MEDS ORDERED: allopurinoL 100 MG TAB PO SCH (09:00)
[2023-08-06] MEDS ORDERED: METOPROLOL TARTRATE 25 MG TAB PO SCH (09:00)
[2023-08-06] MEDS ORDERED: LOSARTAN POTASSIUM 50 MG TAB PO SCH (09:00)
[2023-08-06] MEDS ORDERED: THIAMINE HCL 100 MG in SYRINGE 9 ML IV SCH (12:00)
[2023-08-06 12:27] LABS: Chol HDL Ratio 3.1 (0-5)
[2023-08-06 13:53] LABS: Folate (Folic Acid),Ser orPlas 21.53 ng/ml (>5.38)
[2023-08-06 14:47] LABS: Estimated Average Glucose 111 mg/dl; Hemoglobin A1C 5.5 % (4.5-5.6)
[2023-08-06 14:52] VITALS: BP 115/69; PULSE 52; RESP 18; TEMP 98.6; O2SAT 94
[2023-08-06] MEDS ORDERED: WARFARIN SOD 5 MG TAB PO SCH (16:00)
--- NOTE | 2023-08-06 17:36 | Discharge Summary ---
Date of Service August 06, 2023 Admission HPI Per Admitting Provider 63 M PMHx PE on warfarin, HTN, PTSD, Gout, HLD presents with two week history of uncoordinated movement, ambulatory dysfunction since a fall that occurred w/o LOC and required sutures to a 2.5 inch laceration on his forehead. He presents today after a fall that occurred 08/03/23 where he fell backwards and hit his head. During this event he endorses brief LOC. His symptoms are a general lack of coordination and weakness when ambulating (says he feels wobbly, is running into objects while walking), intermittent tunneling of his vision, and distortion in color vision, decrease in appetite. None of these symptoms were present prior to his first fall two weeks ago and are worse since his second fall two days ago. Otherwise, denies dayne dizziness, fever, chills, SHAH, CP, SOB, N/V/D. Of note, pt has shrapnel in his R eye therefore imaging by MRI is not able to be completed. ED Course: CT head without hemmorhage, mass effect, or evidence of acute territorial ischemia. Laboratory studies unremarkable. Admission Exam Per Admitting Provider General: patient resting comfortably, NAD, non-toxic in appearance, AA&O x 4, answers questions appropriately and follows commands. Skin: warm, dry, intact HEENT: PERRLA, EOMI, +nystagmus, -strabismus, visual plunkett intact and equal bilaterally, good peripheral vision, 2-3in newly healed scar in place R forehead crossing midline, anicteric sclera, conjunctiva without injection, moist mucus membranes, trachea midline, no thyromegaly, no JVD Heart: +S1/S2, regular, no m/r/g Lungs: equal air entry bilaterally, no rales/rhonchi/wheezes Abd: +BS, soft, NT/ND, no masses/organomegaly/ascites Ext: warm, no clubbing/cyanosis or edema Neuro: nonfocal, CN II-XII intact, strength intact and equal bilaterally, patient AA&O x 4, speech intact, no facial droop, moving all extremities on command. Principal Diagnosis Head injury, ambulatory dysfunction Discharge Exam General: Well-appearing, NAD HEENT: Healing scar on forehead, normal conjunctivae, non-erythematous oropharyn x, PERRL, EOMI, no nystagmus noted Cardiovascular: RRR, no M/R/G Pulmonary: CTAB, no W/R/R Abdomen: Soft, NT/ND, no guarding Neurologic: AAOx3, CN II-XII intact with exception of decreased hearing, full and symmetric strength BUEs and BLEs, SILT major dermatomes BUEs and BLEs, no dysdiadochokinesia, minimal bilateral dysmetria with finger to nose, normal speech Psychiatric: Appropriate mood/affect Discharge Data Allergies Allergy/AdvReac Type Severity Reaction Status Date / Time No Known Allergies Allergy Verified 08/05/23 20:08 Consultations 08/05/23 20:10 ED Decision to Admit Stat Ordered Studies 08/05/23 17:52 CT head/brain wo con Stat 08/05/23 20:42 CT angio head wo/w Stat CT angio neck wo/w con Stat Hospital Course (1) Ambulatory dysfunction: (2) History of pulmonary embolism: (3) Anxiety: (4) PTSD (post-traumatic stress disorder): (5) Hypertension: (6) Hyperlipidemia: (7) Chronic pain not due to malignancy: (8) Hearing loss: Plan 63 M PMHx PE on warfarin, HTN, PTSD, Gout, HLD presents with two week history of uncoordinated movement, ambulatory dysfunction, and visual disturbances since a fall that occurred and required sutures to a 2.5 inch laceration on his forehead and now a new fall 2 days prior to admission. Patient describes first fall as having syncope with LOC type of event. #Ambulatory Dysfunction/Visual Abnormalities CT Head, CTA Head and Neck negative, unable to obtain MRIs due to shrapnel in eye Normal CXR Echo obtained to eval for possible prior syncopal episode - report pending at time of discharge, and now demonstrate normal LV size and function with mild LVH Discussed case with on-call neurologist - multiple possible etiologies, unlikely CVA pattern given negative CT scans Possibly post-concussion with oculo-vestibular concussive pattern Per neurology, possibly related to prior alcohol consumption - patient endorses maybe 1-2 beers daily - treated with thiamine and prescribed to complete 5 day course, continue multivitamin B12/folate normal A1c and Lipid panel to assess for CVA risk factors - elevated TGs but otherwise unremarkable PT/OT had not yet evaluated patient by time of discharge - patient felt comfortable with discharge without their assessment Recommend outpatient vestibular therapy Consider outpatient neurology evaluation Consider ophthalmology re-evaluation (note had recent check-up about 6 wks ago) #History of PE On chronic warfarin: 5mg Tu//Tue, 10mg all other days INR therapeutic #Anxiety buspirone 15mg TID Lexapro 20mg trazodone 100mg HS #PTSD as above #HTN amlodipine 5mg olmesartan 40mg metoprolol tartrate 25mg daily #HLD atorvastatin 20mg #Chronic Pain lidocaine patch 5% PRN pain baclofen 10mg Vicodin 7.5/325 PRN pain metaxalone 800mg TID PRN pain Total Time Total Time Spent Total Time Spent (In Minutes): 45 Total Time Includes: Examination of the Patient, Discharge Planning, Medication Reconciliation and Communication With Other Providers Discharge Plan Discharge Items Patient Disposition: Home - Self-Care Reason For Visit: HEAD INJURY, AMBULATORY DYSFXN Discharge Diagnosis: Head injury, ambulatory dysfunction Activity: Resume your previous activity Non-emergency contact: Primary Care Provider Call non-emergency contact if: you have any medication questions Follow-up/Referrals: Kristina Correa DO [Primary Care Provider] - Diet: Regular Addtl Attending Provider Instructions: You were admitted to the hospital after having 2 recent falls with subsequent uncoordinated movement/ambulatory dysfunction with visual disturbances. You had a CT scan of your head as well as additional CT scans of your head and neck to evaluate the blood vessels that were all normal. The chest x-ray was also normal. The labs tested were also normal including normal A1c to test diabetes, normal B12, normal folate level, normal electrolytes, normal kidney number, and normal troponin to look at your heart. Your total cholesterol was normal but your triglycerides were a little elevated. The only test that we do not have the results back yet is the echocardiogramdiscuss these results with your PCP. It is recommended to take the prescribed thiamine for the next 4 days in addition to your previously prescribed medications including your multivitamin. Your case was discussed with the on, call neurologist, and it would be a good idea to meet with them outpatienttalk with your PCP about ordering a consult. It is suspected some of your symptoms can be explained by a concussion. It is recommended that you meet with a vestibular therapist to help treat some of your symptoms. Dinora Ash at [id number] is a great resource. Make sure you have a follow-up appointment with your PCPif you have not heard from their office by Tuesday, contact their office to arrange this appointment. Please do not hesitate to return or call your PCP should your symptoms worsen. Pending Studies at Discharge: Yes Studies:: Echocardiogram report pending Stand-Alone Forms: My [facility] Medications and DC Order Prescriptions: New thiamine HCl (vitamin B1) 100 mg tablet 100 mg PO DAILY Qty: 4 0RF Continued colchicine (gout) 0.6 mg capsule 0.6 mg PO BID PRN (Reason: gout) warfarin 5 mg tablet See Rx Instructions PO UD Rx Instructions: 5mg every //, 10mg all other days per [facility] PO use as directed; multivitamin tablet 1 tab PO QAM Qty: 0 sildenafil (pulm.hypertension) 20 mg tablet 20 mg PO DAILY MDD 100 mg PRN (Reason: Sexual Activity) Qty: 60 3RF Rx Instructions: Take 1-5 tablets as needed 1 hour prior to need. Do not exceed 100 mg in 24 hours. lidocaine [Lidoderm] 5 % adhesive patch,medicated 1 patch Topical DAILY PRN (Reason: Pain) Qty: 30 11RF Rx Instructions: APPLY PATCH TO AFFECTED AREA FOR 12 HOURS- REMOVE AND LEAVE OFF FOR 12 HOURS hydrocortisone acetate [Anusol-HC] 25 mg suppository 25 mg MD BID PRN (Reason: hemorrhoids) Qty: 12 2RF trazodone 50 mg tablet 100 mg PO HS metaxalone [Skelaxin] 800 mg tablet 800 mg PO TID PRN (Reason: Pain) escitalopram oxalate [Lexapro] 20 mg tablet 20 mg PO HS atorvastatin 40 mg tablet 20 mg PO PM allopurinol 100 mg tablet 100 mg PO QAM Rx Instructions: patient uses PRN baclofen 10 mg tablet 10 mg PO HS Rx Instructions: TAKE 1 TABLET BY MOUTH AT BEDTIME hydrocodone-acetaminophen 7.5-325 mg tablet 0.5 - 1 tab PO Q8H PRN (Reason: pain) Rx Instructions: 1/2 to 1 pill PO every 8 hours PRN; metoprolol tartrate 25 mg tablet 25 mg PO QAM amlodipine-olmesartan 5-40 mg tablet 1 tab PO QAM Discharge Orders: Discharge Order (Routine); Ordered 08/06/23 Ordered By: Sheyla Morales Admission Data Admit Date/Time: 08/05/23 22:00 Attending Provider: Sheyla Morales Admit Provider: Andrey Cruz Primary Care Provider: Kristina Correa Other Providers: Jolene Alcazar Other Interventions: Discharge Summary Assessment (RN) Last Done: 08/06/23 17:43 Coding Level of Care Code 27711 INP/OBS DISCH >30 MIN Diagnoses Ambulatory dysfunction R26.2 History of pulmonary embolism Z86.711 Anxiety F41.9 PTSD (post-traumatic stress disorder) F43.10 Hypertension I10 Hyperlipidemia E78.5 Hyperlipidemia type: unspecified Chronic pain not due to malignancy G89.29 Hearing loss H91.90
[2023-08-06] MEDS ORDERED: BACLOFEN 10 MG TAB PO SCH (21:00)
[2023-08-06] MEDS ORDERED: ATORVASTATIN 20 MG TAB PO SCH (21:00)
[2023-08-06] MEDS ORDERED: traZODone HCL 100 MG TAB PO SCH (21:00)
[2023-08-06] MEDS ORDERED: ESCITALOPRAM OXALATE 20 MG TAB PO SCH (21:00)
--- NOTE | 2023-08-06 22:00 | XCELERA ---
[id number]
[2023-08-07] MEDS ORDERED: WARFARIN SOD 10 MG TAB PO SCH (16:00)
== END 2023-08-06 18:03 | disposition home or self-care (01) ==
LOC: ED 16:50 → 3W 16:50 → SUATTDRO 22:00 → 3W 23:13